=== PATIENT | male | born 1960 | race Caucasian/White ===

== ENCOUNTER 2016-09-05 12:28 | Emergency (ER) | payer MEDICAID ==
[2016-09-05] MEDS ORDERED: DEXAMETHASONE 10 MG/ML VIAL PO STA (14:56)
[2016-09-05] MEDS ORDERED: CHERRY SYRUP 10 ML UDC PO ONE (14:58)
[2016-09-05] MEDS ORDERED: DEXAMETHASONE 10 MG/ML VIAL ONE (14:58)
== END 2016-09-05 15:13 | disposition home or self-care (01) ==
DX: J02.8 Acute pharyngitis due to other specified organisms (principal); B97.89 Other viral agents as the cause of diseases classified elsewhere; I10 Essential (primary) hypertension; E11.9 Type 2 diabetes mellitus without complications; Z79.82 Long term (current) use of aspirin; Z79.84 Long term (current) use of oral hypoglycemic drugs; Z87.891 Personal history of nicotine dependence
CPT/HCPCS: 87070; 87430; 99283; A9270

== ENCOUNTER 2016-11-02 14:37 | Emergency (ER) | payer MEDICAID ==
[2016-11-02] MEDS ORDERED: CLINDAMYCIN 150 MG CAPSULE PO STA (14:48)
[2016-11-02] MEDS ORDERED: CLINDAMYCIN 150 MG CAPSULE PO ONE (14:55)
== END 2016-11-02 14:59 | disposition home or self-care (01) ==
DX: L03.312 Cellulitis of back [any part except buttock and flank] (principal); I10 Essential (primary) hypertension; E11.9 Type 2 diabetes mellitus without complications; Z79.84 Long term (current) use of oral hypoglycemic drugs; E78.00 Pure hypercholesterolemia, unspecified; Z86.73 Personal history of transient ischemic attack (TIA), and cerebral infarction without residual deficits; K21.9 Gastro-esophageal reflux disease without esophagitis; M19.90 Unspecified osteoarthritis, unspecified site; M10.9 Gout, unspecified; Z79.82 Long term (current) use of aspirin; Z87.891 Personal history of nicotine dependence
CPT/HCPCS: 99283; A9270

== ENCOUNTER 2016-11-09 13:53 | Emergency (ER) | payer MEDICAID | END 2016-11-09 16:02 | disposition home or self-care (01) | DX: S83.91XA Sprain of unspecified site of right knee, initial encounter (principal); X50.1XXA Overexertion from prolonged static or awkward postures, initial encounter; Y92.009 Unspecified place in unspecified non-institutional (private) residence as the place of occurrence of the external cause; M25.461 Effusion, right knee; M17.11 Unilateral primary osteoarthritis, right knee; I10 Essential (primary) hypertension; E11.9 Type 2 diabetes mellitus without complications; Z79.4 Long term (current) use of insulin; K21.9 Gastro-esophageal reflux disease without esophagitis; Z79.82 Long term (current) use of aspirin; Z87.891 Personal history of nicotine dependence ==

== ENCOUNTER 2018-04-23 19:20 | Emergency (ER) | payer MEDICAID ==
[2018-04-23 19:29] VITALS: BP 131/87
[2018-04-23] MEDS ORDERED: AMOX/CLAV 875 MG/125 MG TABLET PO STA (19:41)
--- NOTE | 2018-04-23 19:45 | ED Physician Documentation ---
PD HPI HEENT - Stated complaint Stated Complaint: SWELLING IN JAW/FACE/COUGH - Chief complaint Chief Complaint: Heent - History obtained from History obtained from: Patient - History of Present Illness Timing - onset: Other (57-year-old gentleman with uncontrolled diabetes and multiple other comorbidities has had cough and cold and runny nose for several days but since last night has had severe right-sided facial pain radiating into the teeth and ear. It is worse if he leans forward or chews. 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 HEENT: Tonsil/Adenoidectomy - Present Medications Home Medications: Ambulatory Orders Medication Instructions Recorded Confirmed Allopurinol [Zyloprim] 100 mg DAILY 09/01/13 09/01/13 Aspirin [Aspir 81] 81 mg DAILY 09/01/13 09/01/13 Cyclobenzaprine [Flexeril] 10 mg TID 09/01/13 09/01/13 Furosemide 80 mg DAILY 09/01/13 09/01/13 Gabapentin [Neurontin] 600 mg PO TID 09/01/13 09/01/13 Glimepiride 4 mg PO DAILY 09/01/13 09/01/13 Hydrocodone/Acetaminophen [Vicodin 1 - 2 tab Q4HR 09/01/13 09/01/13 Hp 10-300 mg Tablet] LORazepam [Ativan] 1 mg PO ONCE PRN 09/01/13 09/01/13 Metformin HCl [Metformin HCl ER] 2,000 mg PO DAILY 09/01/13 09/01/13 Multivitamin [Multi-Vitamin Daily] 1 tab DAILY 09/01/13 09/01/13 Omeprazole [PriLOSEC] 40 mg DAILY 09/01/13 09/01/13 Ondansetron Odt [Zofran] 4 mg TL Q6H PRN #10 tablet 09/01/13 Potassium Chloride [K-Dur] 1 tab DAILY 09/01/13 09/01/13 Propranolol [Inderal] 60 mg DAILY 09/01/13 09/01/13 traMADol [Ultram] 1 - 2 tab TID 09/01/13 09/01/13 Atorvastatin Calcium 40 mg PO DAILY 12/21/15 12/21/15 Clobetasol Propionate/Emoll 12/21/15 [Clobetasol Emollient 0.05% Crm] Fluticasone Propionate, Micro 12/21/15 [Fluticasone Propionate Micro] Losartan Potassium 100 mg PO DAILY 12/21/15 12/21/15 Pioglitazone HCl [Actos] 30 mg PO DAILY 12/21/15 12/21/15 SITagliptin [Januvia] 100 mg PO DAILY 12/21/15 12/21/15 Sucralfate 1 gm PO QID 12/21/15 12/21/15 metOLazone [Metolazone] 12/21/15 Clindamycin HCl [Clindamycin 300MG 300 mg PO Q6H 7 Days capsule 11/02/16 CAP] Exenatide [Byetta] 5 mcg SQ 11/09/16 Insulin Glargine,Hum.rec.anlog 35 unit SQ 11/09/16 [Lantus Solostar] Amox/Clav 875/125 [Augmentin 1 tab PO BID 10 Days #20 tablet 04/23/18 875/125] Meloxicam [Mobic] 7.5 mg PO BID PRN #20 tablet 04/23/18 - Allergies Allergies/Adverse Reactions: Allergies Allergy/AdvReac Type Severity Reaction Status Date / Time acetaminophen [From Percocet] Allergy Respiratory Verified 04/23/18 19:29 oxycodone HCl * Allergy Respiratory Verified 04/23/18 19:29 [From Percocet] - Social History Does the pt smoke?: No Smoking Status: Former smoker Does the pt drink ETOH?: No Does the pt have substance abuse?: No - Immunizations Immunizations are current?: Yes - POLST Patient has POLST: No PD ED PE NORMAL - Vitals Vital signs reviewed: Yes - General General: Alert and oriented X 3, No acute distress - HEENT HEENT: Other (TMs are normal. He is edentulous with dentures in place, no trismus and the oropharynx is normal. He has significant tenderness over the right maxillary sinus and very swollen nasal mucosa on the right.) - Neck Neck: Supple, no meningeal sign, No bony TTP - Cardiac Cardiac: RRR, No murmur - Respiratory Respiratory: No respiratory distress, Clear bilaterally - Neuro Neuro: Alert and oriented X 3, Normal speech Results - Vitals Vitals: Vital Signs - 24 hr 04/23/18 19:23 Temperature 37.4 C Heart Rate 122 H Respiratory 24 Rate Blood Pressure 131/87 H O2 Saturation 96 Oxygen O2 Source Room air PD MEDICAL DECISION MAKING - ED course ED course: This is a 57-year-old gentleman with uncontrolled diabetes presents with signs and symptoms of right maxillary sinusitis he does fit IDSA criteria for antibiotic treatment. - Sepsis Event Vital Signs: Vital Signs - 24 hr 04/23/18 19:23 Temperature 37.4 C Heart Rate 122 H Respiratory 24 Rate Blood Pressure 131/87 H O2 Saturation 96 Oxygen O2 Source Room air Departure - Departure Disposition: Home, Self Care Clinical Impression: Sinusitis Qualifiers: Sinusitis location: maxillary Chronicity: acute Recurrence: non-recurrent Qualified Code(s): J01.00 - Acute maxillary sinusitis, unspecified Condition: Good Record reviewed to determine appropriate education?: Yes Instructions: ED Sinusitis Abx Tx Prescriptions: Amox/Clav 875/125 [Augmentin 875/125] 1 tab PO BID 10 Days #20 tablet Meloxicam [Mobic] 7.5 mg PO BID PRN #20 tablet PRN Reason: Pain Comments: Your blood pressure was elevated today on check into the emergency department. This does not mean that you have hypertension, it is a common phenomenon to come to the emergency department and have elevated blood pressure. I recommend that you see your primary care physician within the week to have it rechecked when you are feeling better.
[2018-04-23] MEDS ORDERED: MELOXICAM 7.5 MG TABLET PO STA (19:52)
[2018-04-24] MEDS ORDERED: MELOXICAM 7.5 MG TABLET PO SCH (09:00)
== END 2018-04-23 20:03 | disposition home or self-care (01) ==
LOC: ED 19:20
DX: J01.00 Acute maxillary sinusitis, unspecified (principal); Z87.891 Personal history of nicotine dependence; I10 Essential (primary) hypertension; E11.9 Type 2 diabetes mellitus without complications; Z79.4 Long term (current) use of insulin; Z79.82 Long term (current) use of aspirin
CPT/HCPCS: 99283; A9270

== ENCOUNTER 2019-04-29 10:21 | Outpatient (CLI) | payer MEDICARE, MEDICAID ==
[2019-04-29 11:46] VITALS: BP 130/80
--- NOTE | 2019-04-29 11:46 | SLEEP CARE CONSULTATION ---
Information from patient questionnaire entered by Khadijah Boo. I have reviewed and concur with the information entered by Khadijah Boo. This document represents the service I personally performed and the decisions made by me, Nadine Duff, RN, MSN, SYSTEM DEVELOPMENT MANAGER. History of Present Illness Reason for Visit: Previously diagnosed sleep apnea (obstructive sleep apnea with 23.9 AHI), sleep apnea on CPAP therapy, Re-establish care (his insurance was no longer accepted here and had to seek care at [facility]. He has been seen annually since. ) Chief Complaint: reports: Other (ANNUAL CHECK UP) Duration of Symptoms: 8 years Usual bedtime: 1 am Time it takes to fall asleep: 10 mins Snores at night: No Observed to quit breathing while asleep: No (single sleeps alone ) Number of times waking at night: 3-4 Reasons for waking at night: reports: Pain Toss, Turn, or Twitch while sleeping: No Recalls having dreams: Yes Usually gets out of bed at: 8 am Feels refreshed in the morning: No Morning headache: No Sleepy or fatigued during the day: No Ever fallen asleep while driving: Yes (decades ago before PAP treatment) Takes day naps: Yes (2 hours a day in middle of day for pain relief rest- no change) Dreams during day naps: Yes Prior sleep studies: Yes Year and Where: here - Parasomnia Symptoms Ever been unable to move upon waking from sleep: No Walks in sleep: No Talks in sleep: No Ever acted out dreams in sleep: No Ever felt weak in the knees when startled or emotional: No Bothered by creepy, crawly, restless sensations in legs: No Problems with memory or concentration: Yes (since TIA history - years ) CPAP Compliance Data - Data Reviewed with Patient Average duration of nightly device use: 8.2 Compliance rate %: 86.7 (180 days) Current pressure setting (cmH2O): 10-18 Humidity settin Heated hose settin Average residual AHI: 0.5 Average large leak: 40 secs Subjective Missed days of use due to: reports: travel (forgot CPAP), other (insomnia) Patient concerns: reports: mask discomfort (from over tightening mask for leaks. Also irritation of skin below ears Uses Wisp nasal mask. ), air blowing in eyes (most days ), mask leak noise (most days), dry mouth, nose, throat (day and night but no worse at night. ). denies: aerophagia, condensation in mask/hose, nasal congestion, epistaxis Observed to snore while using device: No Current pressure setting perceived as: comfortable On therapy, patient: reports: sleeping better, being more awake and alert during the day, more rested overall. denies: drowsiness while driving Initial [place] Sleepiness Scale score: 13 (in 2013) Current [place] Sleepiness Scale score: 13 Past Medical History Past Medical History: reports: Hypertension, Diabetes, Arthritis, Gout, Fibromyalgia, GERD Social History The patient's occupation is Retired. Patient is / and lives in [place]. Have you smoked in the past 12 months: No Cigarettes per day (20/pack): 40 Years of smokin Quit date: 4 years ago Smoking Pack Years: 84.0 Alcohol use: No Caffeine use: Yes Caffeine amount and frequency: 2 cups a day Family History Family history of sleep disordered breathing: No Allergies and Home Medications Known drug allergies: Yes (Percocet) Home medication list reviewed: Yes (Changes is Victoza replaced by Ozempic weekly, and Humolog replaced by Dg) Review of Systems Review of systems same as previous: Yes Cardiovascular: reports: high blood pressure Gastrointestinal: reports: heartburn, difficulty swallowing Neurological: reports: headaches, head trauma, disorientation (intermittent feeling overwhelmed such as accounting etc. ), gait or balance problems (uses cane from past injuries ) Ear/Nose/Throat: reports: dry mouth/throat, tonsillectomy, wisdom teeth removed Musculoskeletal: reports: joint pain, neck pain, back pain, joint swelling, muscle pain or cramping (fibromyalgia ), mobility problems Physical Exam Blood Pressure: 130/80 Cuff size: long Heart Rate: 72 O2 Saturation: 96 Height: 5 ft 11.5 in (stated) Weight: 364 lb 9.6 oz Weight change since last visit: lost 6 pounds Body Mass Index: 50.1 BMI Classification: Obesity Class 3 Impression and Plan 1. Obstructive Sleep Apnea-Hypopnea Syndrome, moderate , with go0d treatment compliance and good apnea control. On CPAP therapy, the patient has better sleep quality and is more rested overall. For mask discomfort, one, I will update supplies. Two, a mask refitting will be completed. Current mask magnets get caught in his fan and unsnap. Also the headgear rubs below ears. Until then he can order mask cloth barriers from [employer] - pamphlet given with information. His oral dryness is 24/7 and his humdity is at maximum with heated hose to reduce condensation with cooler weather. The new CPAPs have a better humidity system and may assist him with oral dryness. His device is not due for replacement until August of 2019. But the device is very noisy and can interfere with disruption of sleep. Thus I will have it checked for repair / replacement. For his supply concerns, I will transfer him to another company. My religious education coordinator will inform him of his options. A DWO prescription will be made. He has started to lose weight with increase of activity in pool. Current BMI is 50, class 3 obesity, indicating morbid obesity. I discussed how his obesity and weight gain since first diagnosed has probably increased his apnea risk as well as other health risks. He is working with PCP and considering bariatric surgery. Since his autoCPAP pressure maximum use is [id number], I will change range to [id number] to accommodate for future weight loss. Symptoms to report discussed for further adjustment discussed. Patient's apnea severity and rationale for treatment to reduce apnea, improve sleep quality and reduce cardiovascular and cerebrovascular events was reviewed. I also reviewed the benefit of consistent device use of CPAP for hypertension, cerebrovascular disease, diabetes . * * Change CPAP pressure to 10-15 cmH2O * Repair or replace CPAP * Transfer to new DME * Update supplies * Mask refitting. * Notify me if snoring with mask or feeling that the pressure is too much or too little * Attempt to lose weight * Return for follow up in 1 year unless his CPAP is updated, or sooner if concerns arise I spent 100% of this 50 minute visit face to face with the patient with greater than 50% of this was spent time counseling the patient and coordination of care.
== END 2019-04-29 10:22 | disposition home or self-care (01) ==
LOC: SC 10:21
PROVIDERS: ATTEND Nurse Practitioner Family
DX: G47.33 Obstructive sleep apnea (adult) (pediatric) (principal); E66.01 Morbid (severe) obesity due to excess calories; Z68.43 Body mass index [BMI] 50.0-59.9, adult
CPT/HCPCS: 99204; G0463; 99212

== ENCOUNTER 2019-07-03 14:32 | Outpatient (CLI) | payer MEDICARE, MEDICAID | END 2019-07-03 14:33 | disposition critical access hospital (66) | LOC: EMS 14:32 | PROVIDERS: ATTEND Surgery | DX: R56.9 Unspecified convulsions (principal) | CPT/HCPCS: A0425; A0429 ==

== ENCOUNTER 2019-07-03 14:46 | Emergency (ER) | payer MEDICARE, MEDICAID ==
[2019-07-03] MEDS ORDERED: diphenhydrAMINE INJ 50 MG/ML VIAL IVP STA (14:52)
[2019-07-03] MEDS ORDERED: LORazepam 2 MG/ML VIAL IVP STA (14:52)
[2019-07-03] MEDS ORDERED: SODIUM CHLORIDE 0.9% 1,000 ML IV ONE ×2 (14:52→15:44)
--- NOTE | 2019-07-03 14:54 | ED Physician Documentation ---
PD HPI SEIZURE - Stated complaint Stated Complaint: SZ - History obtained from History obtained from: Patient, EMS - History of Present Illness Timing - onset: How many hours ago (1) Witnessed: Witnessed (he says he was standing doing light activity when started to feel generally weak then with muscle cramps/spasms initially in arms then whole body. he was alert and conversant. Feeling some anxious about symptoms. Denies rapid breathing.) Description of seizure activity: Other (he had spasms of hands and feet, with muscle spasms diffusely as well. Able to talk and interact.) Injury during seizure: None Associated symptoms: Dyspnea. No: Headache, Palpitations, Nausea / vomiting History of seizures: No: Known seizure disorder Contributing factors: No: Changed meds, Low blood sugar, Benzo withdrawal, Fever Similar symptoms before: No diagnosis (had similar couple of times that lasts just few minutes then improves. This has been over an hour.) Review of Systems Constitutional: reports: Myalgias. denies: Fever, Chills, Fatigue Nose: denies: Rhinorrhea / runny nose, Congestion Throat: denies: Sore throat Cardiac: denies: Chest pain / pressure, Palpitations Respiratory: denies: Cough Musculoskeletal: denies: Neck pain, Back pain Neurologic: reports: Generalized weakness. 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 HEENT: Tonsil/Adenoidectomy - Present Medications Home Medications: Ambulatory Orders Medication Instructions Recorded Confirmed Allopurinol [Zyloprim] 100 mg DAILY 09/01/13 09/01/13 Aspirin [Aspir 81] 81 mg DAILY 09/01/13 09/01/13 Cyclobenzaprine [Flexeril] 10 mg TID 09/01/13 09/01/13 Furosemide 80 mg DAILY 09/01/13 09/01/13 Gabapentin [Neurontin] 600 mg PO TID 09/01/13 09/01/13 Glimepiride 4 mg PO DAILY 09/01/13 09/01/13 Hydrocodone/Acetaminophen [Vicodin 1 - 2 tab Q4HR 09/01/13 09/01/13 Hp 10-300 mg Tablet] LORazepam [Ativan] 1 mg PO ONCE PRN 09/01/13 09/01/13 Metformin HCl [Metformin ER 2,000 mg PO DAILY 09/01/13 09/01/13 Osmotic] Multivitamin [Multi-Vitamin Daily] 1 tab DAILY 09/01/13 09/01/13 Omeprazole [PriLOSEC] 40 mg DAILY 09/01/13 09/01/13 Ondansetron Odt [Zofran] 4 mg TL Q6H PRN #10 tablet 09/01/13 Potassium Chloride [K-Dur] 1 tab DAILY 09/01/13 09/01/13 Propranolol [Inderal] 60 mg DAILY 09/01/13 09/01/13 traMADol [Ultram] 1 - 2 tab TID 09/01/13 09/01/13 Atorvastatin Calcium 40 mg PO DAILY 12/21/15 12/21/15 Clobetasol Propionate/Emoll 12/21/15 [Clobetasol Emollient 0.05% Crm] Fluticasone Propionate, Micro 12/21/15 [Fluticasone Propionate Micro] Losartan Potassium 100 mg PO DAILY 12/21/15 12/21/15 Pioglitazone HCl [Actos] 30 mg PO DAILY 12/21/15 12/21/15 SITagliptin [Januvia] 100 mg PO DAILY 12/21/15 12/21/15 Sucralfate 1 gm PO QID 12/21/15 12/21/15 metOLazone [Metolazone] 12/21/15 Clindamycin HCl [Clindamycin 300MG 300 mg PO Q6H 7 Days capsule 11/02/16 CAP] Exenatide [Byetta] 5 mcg SQ 11/09/16 Insulin Glargine,Hum.rec.anlog 35 unit SQ 11/09/16 [Lantus Solostar] Amox/Clav 875/125 [Augmentin 1 tab PO BID 10 Days #20 tablet 04/23/18 875/125] Meloxicam [Mobic] 7.5 mg PO BID PRN #20 tablet 04/23/18 - Allergies Allergies/Adverse Reactions: Allergies Allergy/AdvReac Type Severity Reaction Status Date / Time acetaminophen [From Percocet] Allergy Respiratory Verified 07/03/19 14:58 oxycodone HCl * Allergy Respiratory Verified 07/03/19 14:58 [From Percocet] - Social History Does the pt smoke?: No Smoking Status: Former smoker Does the pt drink ETOH?: No Does the pt have substance abuse?: No - Immunizations Immunizations are current?: Yes - POLST Patient has POLST: No PD ED PE NORMAL - Vitals Vital signs reviewed: Yes - General General: Alert and oriented X 3, Well developed/nourished, Other (arrives via EMS with being conversant. Mild tachypnea. Having spasms in arms and legs. He will push feet out against foot of gurney. Arms and hands are spasmed, with fingertips spasmed together. He is able to lift arms and legs on command, but still with some stiffness of movement. ) - HEENT HEENT: Moist mucous membranes, Pharynx benign - Neck Neck: Supple, no meningeal sign, No adenopathy - Cardiac Cardiac: RRR, No murmur - Respiratory Respiratory: No respiratory distress, Clear bilaterally - Abdomen Abdomen: Soft, Non tender - Back Back: No spinal TTP - Derm Derm: Normal color, Warm and dry - Extremities Extremities: No edema, No calf tenderness / cord, Other (arms and legs bilaterally spasming. ) Results - Vitals Vitals: Vital Signs - 24 hr 07/03/19 07/03/19 07/03/19 14:45 14:58 15:28 Temperature 36.9 C Heart Rate 94 87 84 Respiratory 24 20 22 Rate Blood Pressure 135/115 H 137/98 H 137/98 H O2 Saturation 96 98 98 07/03/19 07/03/19 07/03/19 15:30 17:30 18:28 Temperature 37.0 C Heart Rate 85 83 82 Respiratory 19 21 16 Rate Blood Pressure 130/76 127/101 H 146/79 H O2 Saturation 98 98 98 Oxygen O2 Source Room air - Labs Labs: Laboratory Tests 07/03/19 07/03/19 07/03/19 15:04 15:04 15:04 WBC 10.5 RBC 5.39 Hgb 16.0 Hct 49.7 MCV 92.2 MCH 29.7 MCHC 32.2 RDW 13.0 Plt Count 312 MPV 9.1 Neut # (Auto) 4.4 Lymph # (Auto) 4.9 H Fisher # (Auto) 0.9 Eos # (Auto) 0.2 Baso # (Auto) 0.1 Absolute Nucleated RBC 0.00 Nucleated RBC % 0.0 VBG pH 7.227 L VBG pCO2 61.3 H VBG pO2 25.1 VBG HCO3 24.9 VBG Total CO2 26.8 VBG O2 Saturation 41.2 L VBG Base Excess -4.1 L Sodium 143 Potassium 4.8 Chloride 103 Carbon Dioxide 27 Anion Gap 13.0 BUN 19 Creatinine 1.3 H Estimated GFR (MDRD) 57 L Glucose 148 H Lactic Acid Calcium 9.5 Magnesium 1.9 Total Bilirubin 0.6 AST 63 H ALT 46 Alkaline Phosphatase 86 Total Creatine Kinase 119 Total Protein 7.7 Albumin 4.0 Globulin 3.7 Albumin/Globulin Ratio 1.1 Lipase 41 Serum Ketones 07/03/19 07/03/19 07/03/19 15:04 15:04 16:58 WBC RBC Hgb Hct MCV MCH MCHC RDW Plt Count MPV Neut # (Auto) Lymph # (Auto) Fisher # (Auto) Eos # (Auto) Baso # (Auto) Absolute Nucleated RBC Nucleated RBC % VBG pH VBG pCO2 VBG pO2 VBG HCO3 VBG Total CO2 VBG O2 Saturation VBG Base Excess Sodium Potassium Chloride Carbon Dioxide Anion Gap BUN Creatinine Estimated GFR (MDRD) Glucose Lactic Acid 3.2 H* 1.1 Calcium Magnesium Total Bilirubin AST ALT Alkaline Phosphatase Total Creatine Kinase Total Protein Albumin Globulin Albumin/Globulin Ratio Lipase Serum Ketones NEGATIVE 07/03/19 16:58 WBC RBC Hgb Hct MCV MCH MCHC RDW Plt Count MPV Neut # (Auto) Lymph # (Auto) Fisher # (Auto) Eos # (Auto) Baso # (Auto) Absolute Nucleated RBC Nucleated RBC % VBG pH 7.323 VBG pCO2 49.0 VBG pO2 39.4 VBG HCO3 24.9 VBG Total CO2 26.4 VBG O2 Saturation 75.2 VBG Base Excess -1.8 Sodium Potassium Chloride Carbon Dioxide Anion Gap BUN Creatinine Estimated GFR (MDRD) Glucose Lactic Acid Calcium Magnesium Total Bilirubin AST ALT Alkaline Phosphatase Total Creatine Kinase Total Protein Albumin Globulin Albumin/Globulin Ratio Lipase Serum Ketones PD MEDICAL DECISION MAKING - ED course Complexity details: reviewed results (lactic acidosis with resp component. He is feeling improved with fludis and meds. Repeat lactate and VBG showing considerable improvement. ), considered differential (not really sure the sequence of it. He has onset of leg and body cramps and weakness, and brought to ER. Having diffuse body cramps on arrival. Labs found elevated lactate and also respiratory acidosis. Consider lactic acidosis due to Metformin. He says he is not on Byetta anymore and he has negative ketones, so not appearing to be euglycemic DKA. The muscle spasms was not seizure. could be hyperventilatory carpopedal spasms.), d/w patient Departure - Departure Disposition: 01 Home, Self Care Clinical Impression: Muscle spasm, Lactic acidosis Condition: Stable Record reviewed to determine appropriate education?: Yes Instructions: ED Spasm Muscle Follow-Up: Jeremiah Leal MD [Primary Care Provider] - Comments: Stay well-hydrated. Hold your metformin for 3 days and then resume if you are feeling well. Continue your other usual medications. Follow-up with your primary care if not improved over the next few days. I do know exactly the initial triggering for it but you did have a buildup of lactic acid and subsequently the muscle spasms. You look well now and your blood test actually improved with just the hydration and stopping the spasms. I would not expect recurrent episodes. Discharge Date/Time: 07/03/19 18:28
[2019-07-03 15:09] LABS: BASOPHILS # (AUTO) 0.1 10^3/uL (0.0-0.1); BASOPHILS % (AUTO) 0.9 %; EOSINOPHILS # (AUTO) 0.2 10^3/uL (0.0-0.7); EOSINOPHILS % (AUTO) 1.9 %; LYMPHOCYTES # (AUTO) 4.9 10^3/uL (1.5-3.5); LYMPHOCYTES % (AUTO) 46.3 %; MEAN CORPUSCULAR HEMOGLOBIN 29.7 pg (27.0-31.0); MEAN CORPUSCULAR HGB CONC 32.2 g/dL (32.0-36.0); MEAN CORPUSCULAR VOLUME 92.2 fL (80.0-94.0); MEAN PLATELET VOLUME 9.1 fL (7.4-11.4); MONOCYTES # (AUTO) 0.9 10^3/uL (0.0-1.0); MONOCYTES % (AUTO) 8.3 %; NEUTROPHILS # (AUTO) 4.4 10^3/uL (1.5-6.6); NEUTROPHILS % (AUTO) 42.2 %; PLT - PLATELET COUNT 312 10^3/uL (130-450); RED BLOOD COUNT 5.39 10^6/uL (4.70-6.10); WHITE BLOOD COUNT 10.5 x10^3/uL (4.8-10.8)
[2019-07-03 15:20] LABS: VBG BASE EXCESS -4.1 mmol/L (-2 - +2); VBG PCO2 61.3 mmHg (41-51); VBG PH 7.227 (7.31-7.41); VBG PO2 25.1 mmHg (25-47); VBG TOTAL CO2 26.8 mmol/L (24-29)
[2019-07-03 15:23] LABS: ALBUMIN/GLOBULIN RATIO 1.1 (1.0-2.2); BILIRUBIN,TOTAL 0.6 mg/dL (0.2-1.0); CALCIUM 9.5 mg/dL (8.5-10.3); CREATININE 1.3 mg/dL (0.6-1.2); MAGNESIUM 1.9 mg/dL (1.7-2.8); TOTAL PROTEIN 7.7 g/dL (6.7-8.2)
[2019-07-03 17:12] LABS: VBG PH 7.323 (7.31-7.41); VBG PO2 39.4 mmHg (25-47)
[2019-07-03 17:13] LABS: VBG BASE EXCESS -1.8 mmol/L (-2 - +2); VBG TOTAL CO2 26.4 mmol/L (24-29)
[2019-07-03 18:30] VITALS: BP 146/79
== END 2019-07-03 18:28 | disposition home or self-care (01) ==
LOC: ED 14:46
DX: M62.838 Other muscle spasm (principal); E87.2 Acidosis; I10 Essential (primary) hypertension; E11.9 Type 2 diabetes mellitus without complications; Z79.4 Long term (current) use of insulin; Z79.82 Long term (current) use of aspirin; Z87.891 Personal history of nicotine dependence
CPT/HCPCS: 36415; 80053; 82009; 82550; 82803; 83605; 83690; 83735; 85025; 96361; 96374; 99283; 99284; J1200; J2060

== ENCOUNTER 2019-07-16 13:51 | Emergency (ER) | payer MEDICARE, MEDICAID ==
[2019-07-16 14:07] VITALS: BP 123/81
--- NOTE | 2019-07-16 14:47 | ED Physician Documentation ---
PD DAVIDSON HEENT - Stated complaint Stated Complaint: RT EAR PX - Chief complaint Chief Complaint: Heent - History obtained from History obtained from: Patient - History of Present Illness Timing - onset: Other (2 to 3 days of mild right ear pain that is more severe today. No respiratory symptoms or fevers. 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 ablation HEENT: Tonsil/Adenoidectomy - Present Medications Home Medications: Ambulatory Orders Medication Instructions Recorded Confirmed Aspirin [Aspir 81] 81 mg DAILY 09/01/13 09/01/13 Cyclobenzaprine [Flexeril] 10 mg TID 09/01/13 09/01/13 Furosemide 80 mg DAILY 09/01/13 09/01/13 Gabapentin [Neurontin] 600 mg PO TID 09/01/13 09/01/13 Glimepiride 4 mg PO DAILY 09/01/13 09/01/13 Hydrocodone/Acetaminophen [Vicodin 1 - 2 tab Q4HR 09/01/13 09/01/13 Hp 10-300 mg Tablet] LORazepam [Ativan] 1 mg PO ONCE PRN 09/01/13 09/01/13 Metformin HCl [Metformin ER 2,000 mg PO DAILY 09/01/13 09/01/13 Osmotic] Multivitamin [Multi-Vitamin Daily] 1 tab DAILY 09/01/13 09/01/13 Omeprazole [PriLOSEC] 40 mg DAILY 09/01/13 09/01/13 Ondansetron Odt [Zofran] 4 mg TL Q6H PRN #10 tablet 09/01/13 Potassium Chloride [K-Dur] 1 tab DAILY 09/01/13 09/01/13 Propranolol [Inderal] 60 mg DAILY 09/01/13 09/01/13 allopurinoL [Zyloprim] 100 mg DAILY 09/01/13 09/01/13 traMADol [Ultram] 1 - 2 tab TID 09/01/13 09/01/13 Atorvastatin Calcium 40 mg PO DAILY 12/21/15 12/21/15 Clobetasol Propionate/Emoll 12/21/15 [Clobetasol Emollient 0.05% Crm] Fluticasone Propionate, Micro 12/21/15 [Fluticasone Propionate Micro] Losartan Potassium 100 mg PO DAILY 12/21/15 12/21/15 Pioglitazone HCl [Actos] 30 mg PO DAILY 12/21/15 12/21/15 SITagliptin [Januvia] 100 mg PO DAILY 12/21/15 12/21/15 Sucralfate 1 gm PO QID 12/21/15 12/21/15 metOLazone [Metolazone] 12/21/15 Clindamycin HCl [Clindamycin 300MG 300 mg PO Q6H 7 Days capsule 11/02/16 CAP] Exenatide [Byetta] 5 mcg SQ 11/09/16 Insulin Glargine,Hum.rec.anlog 35 unit SQ 11/09/16 [Lantus Solostar] Amox/Clav 875/125 [Augmentin 1 tab PO BID 10 Days #20 tablet 04/23/18 875/125] Meloxicam [Mobic] 7.5 mg PO BID PRN #20 tablet 04/23/18 Ciprofloxacin HCl [Cipro] 500 mg PO BID #20 tablet 07/16/19 Hydrocodone/Acetaminophen 1 - 2 each PO Q6H PRN #10 tablet 07/16/19 [Hydrocodon-Acetaminophen 5-325] Neomycin/Polymyx/Hc Otic Drops 4 drops OT TID #1 bottle 07/16/19 [Cortisporin Ear Susp] - Allergies Allergies/Adverse Reactions: Allergies Allergy/AdvReac Type Severity Reaction Status Date / Time acetaminophen [From Percocet] Allergy Respiratory Verified 07/16/19 14:04 oxycodone HCl * Allergy Respiratory Verified 07/16/19 14:04 [From Percocet] - Social History Does the pt smoke?: No Smoking Status: Former smoker Does the pt drink ETOH?: No Does the pt have substance abuse?: No - Immunizations Immunizations are current?: Yes - POLST Patient has POLST: No PD ED PE NORMAL - Vitals Vital signs reviewed: Yes - General General: Alert and oriented X 3, No acute distress - HEENT HEENT: Other (He has a case of otitis externa on the right which is not occlusive. The TM is normal.) - Neck Neck: Supple, no meningeal sign, No bony TTP - Neuro Neuro: Alert and oriented X 3, Normal speech Results - Vitals Vitals: Vital Signs - 24 hr 07/16/19 14:04 Temperature 37 C Heart Rate 100 Respiratory 17 Rate Blood Pressure 123/81 H O2 Saturation 94 Oxygen O2 Source Room air PD MEDICAL DECISION MAKING - ED course ED course: Given underlying diabetes he does fit criteria for antibiotic treatment orally and topically for otitis externa Departure - Departure Disposition: Home, Self Care Clinical Impression: Otitis externa Qualifiers: Otitis externa type: diffuse Chronicity: acute Laterality: right Qualified Code(s): H60.311 - Diffuse otitis externa, right ear Condition: Good Record reviewed to determine appropriate education?: Yes Instructions: ED Otitis Externa Prescriptions: Ciprofloxacin HCl [Cipro] 500 mg PO BID #20 tablet Hydrocodone/Acetaminophen [Hydrocodon-Acetaminophen 5-325] 1 - 2 each PO Q6H PRN #10 tablet PRN Reason: pain Neomycin/Polymyx/Hc Otic Drops [Cortisporin Ear Susp] 4 drops OT TID #1 bottle Comments: Recheck with your doctor in 1 week, return for new or worsening symptoms.
== END 2019-07-16 15:06 | disposition home or self-care (01) ==
LOC: ED 13:51
DX: H60.311 Diffuse otitis externa, right ear (principal); I10 Essential (primary) hypertension; E11.9 Type 2 diabetes mellitus without complications; Z79.4 Long term (current) use of insulin; Z79.82 Long term (current) use of aspirin; Z87.891 Personal history of nicotine dependence
CPT/HCPCS: 99283

== ENCOUNTER 2019-12-04 11:50 | Outpatient (CLI) | payer MEDICARE, MEDICAID ==
--- NOTE | 2019-12-05 00:25 | CT Report ---
Reason: TREMORS OF NERVOUS SYSTEM Procedure Date: 12/04/2019 Accession Number: [id number] / [id number] Procedure: CT - HEAD WO CPT Code: Final Report FULL RESULT: EXAM: CT HEAD EXAM DATE: 12/04/2019 12:08 PM. CLINICAL HISTORY: TREMORS OF NERVOUS SYSTEM. COMPARISON: None. TECHNIQUE: Multiaxial CT images were obtained from the foramen magnum to the vertex. Reformats: Sagittal and coronal. IV contrast: None. In accordance with CT protocol optimization, one or more of the following dose reduction techniques were utilized for this exam: automated exposure control, adjustment of mA and/or KV based on patient size, or use of iterative reconstructive technique. FINDINGS: Parenchyma: No intraparenchymal hemorrhage. No evidence of mass, midline shift, or CT findings of acute infarction. Cerda-white differentiation is distinct. Diffuse chronic microangiopathic white matter changes are evident. Extraaxial Spaces: Normal for age. No subdural or epidural collections identified. Ventricles: The ventricles and cortical sulci are enlarged, consistent with age-related tissue loss. Sinuses and orbits: Mucous retention cyst or polyp in the left maxillary sinus. The visualized orbital contents are unremarkable. Bones: No evidence of fracture or calvarial defect. Other: None. IMPRESSION: Generalized age-related cortical atrophic changes without evidence of acute intracranial abnormality. Chronic sinus disease. RADIA
== END 2019-12-04 11:51 | disposition home or self-care (01) ==
LOC: DI 11:50
PROVIDERS: ATTEND Psychiatry & Neurology Neurology
DX: R25.1 Tremor, unspecified (principal); R51 Headache; Z91.81 History of falling; J32.9 Chronic sinusitis, unspecified
CPT/HCPCS: 70450

== ENCOUNTER 2020-02-03 08:47 | Outpatient (CLI) | payer MEDICARE, MEDICAID ==
[2020-02-03 09:24] LABS: BUN - BLOOD UREA NITROGEN 23 mg/dL (6-20); CALCIUM 9.3 mg/dL (8.5-10.3); CARBON DIOXIDE - CO2 28 mmol/L (21-32); CHLORIDE 99 mmol/L (101-111); CHOL/HDL RATIO 5.5 (<5.0); CHOLESTEROL 187 mg/dL; CREATININE 1.4 mg/dL (0.6-1.2); GLUCOSE 415 mg/dL (70-100); HDL CHOLESTEROL 34 mg/dL; LDL CHOLESTEROL,CALCULATED 105 mg/dL; LDL/HDL RATIO 3.1 (<3.6); SODIUM 136 mmol/L (135-145); VLDL CHOLESTEROL 48 mg/dL
[2020-02-03 09:51] LABS: CREATININE,URINE 114.4 mg/dL; MICROALBUM/CREATININE RATIO,UR 638.1 ug/mg (<30.0)
== END 2020-02-03 08:48 | disposition home or self-care (01) ==
LOC: LAB 08:47
PROVIDERS: ATTEND Nurse Practitioner Family
DX: E11.65 Type 2 diabetes mellitus with hyperglycemia (principal); Z79.4 Long term (current) use of insulin
CPT/HCPCS: 36415; 80048; 80061; 81599; 82043; 82570; 83036; 83721; 84443

== ENCOUNTER 2020-03-02 09:57 | Outpatient (CLI) | payer MEDICARE, MEDICAID ==
[2020-03-02 10:37] LABS: BUN - BLOOD UREA NITROGEN 20 mg/dL (6-20); CALCIUM 9.2 mg/dL (8.5-10.3); CARBON DIOXIDE - CO2 23 mmol/L (21-32); CHLORIDE 98 mmol/L (101-111); CHOL/HDL RATIO 6.1 (<5.0); CHOLESTEROL 183 mg/dL; CREATININE 1.2 mg/dL (0.6-1.2); GLUCOSE 495 mg/dL (70-100); HDL CHOLESTEROL 30 mg/dL; LDL CHOLESTEROL,CALCULATED 95 mg/dL; LDL/HDL RATIO 3.2 (<3.6); SODIUM 134 mmol/L (135-145); VLDL CHOLESTEROL 58 mg/dL
[2020-03-02 10:43] LABS: HB2 TOTAL 15.8 g/dL; HEMOGLOBIN A1C 1.6 g/dL; HEMOGLOBIN A1C % 11.4 % (4.6-6.2)
[2020-03-02 11:41] LABS: CREATININE,URINE 104.1 mg/dL; MICROALBUM/CREATININE RATIO,UR 740.6 ug/mg (<30.0); MICROALBUMIN,URINE 77.1 mg/dL (0-300.0)
== END 2020-03-02 09:58 | disposition home or self-care (01) ==
LOC: LAB 09:57
PROVIDERS: ATTEND Nurse Practitioner Family
DX: R79.89 Other specified abnormal findings of blood chemistry (principal); E11.65 Type 2 diabetes mellitus with hyperglycemia; Z79.4 Long term (current) use of insulin
CPT/HCPCS: 36415; 80048; 80061; 82043; 82570; 83036; 83721; 84443

== ENCOUNTER 2020-05-12 14:20 | Outpatient (CLI) | payer MEDICARE, MEDICAID ==
[2020-05-12 14:33] LABS: BILIRUBIN,URINE NEGATIVE (NEGATIVE); GLUCOSE, URINE (UA) 250 mg/dL (NEGATIVE); KETONES,URINE (UA) NEGATIVE (NEGATIVE); LEUKOCYTE ESTERASE, URINE NEGATIVE (NEGATIVE); NITRITE,URINE NEGATIVE (NEGATIVE); OCCULT BLOOD,URINE NEGATIVE (NEGATIVE); PROTEIN,URINE 100 mg/dL (NEGATIVE); UROBILINOGEN,URINE 0.2 (NORMAL) E.U./dL (NORMAL)
[2020-05-12 14:44] LABS: CLARITY,URINE CLEAR (CLEAR); RBC,URINE None Seen /HPF (0-5); SQUAMOUS EPITHELIAL CELL,UR NONE SEEN (<= Few)
[2020-05-12 14:45] LABS: BACTERIA,URINE None Seen /HPF (None Seen)
== END 2020-05-12 14:21 | disposition home or self-care (01) ==
LOC: LAB 14:20
PROVIDERS: ATTEND Specialist
DX: N39.0 Urinary tract infection, site not specified (principal)
CPT/HCPCS: 81001; 87086

== ENCOUNTER 2020-06-02 12:54 | Outpatient (CLI) | payer MEDICARE, MEDICAID ==
[2020-06-02 21:50] LABS: HEMOGLOBIN A1c% 10.9 % (4.27-6.07)
== END 2020-06-02 12:55 | disposition home or self-care (01) ==
LOC: LAB 12:54
PROVIDERS: ATTEND Nurse Practitioner Family
DX: E11.65 Type 2 diabetes mellitus with hyperglycemia (principal); Z79.4 Long term (current) use of insulin
CPT/HCPCS: 36415; 83036

== ENCOUNTER 2020-07-13 13:58 | Outpatient (CLI) | payer MEDICARE, MEDICAID ==
--- NOTE | 2020-07-13 14:32 | SLEEP CARE CONSULTATION ---
Information from patient questionnaire entered by Brett Rivas. I have reviewed and concur with the information entered by Brett Rivas. This document represents the service I personally performed and the decisions made by , Monique Hughes ARNP. History of Present Illness Service Date and Time: 07/13/2020 1358 Previous diagnosis: Moderate, Obstructive Sleep Apnea-Hypopnea Syndrome AHI: 23.8 (in 2007) Reason for follow up: first compliance (06/03), first compliance after device update Equipment type: CPAP Equipment obtained from: [employer] (getting supplies as needed) Mask style: Nasal pillows (getting some soreness and pulls out of nose; wants to change to nasal cushion) Backup mask available: Yes (old mask) Last cushion change: 2 weeks ago Prior sleep studies: Yes Year and Where: 2007 [facility] additional information: SHINE THOMAS was diagnosed to have moderate, AHI 23.8, obstructive sleep apnea-hypopnea syndrome and returned today for CPAP therapy first compliance after device update follow-up. Sleep Study - Results Prior sleep studies: Yes Year and Where: here CPAP Compliance Data - Data Reviewed with Patient Average duration of nightly device use: 8 h 25 min Compliance rate %: 97 Current pressure setting (cmH2O): 9-14 Average residual AHI: 1.1 Central apnea: 0.0 Obstructive apnea: 0.9 Subjective Patient concerns: reports: dry mouth, nose, throat. denies: aerophagia, mask discomfort, air blowing in eyes, mask leak noise, condensation in mask/hose, nasal congestion, epistaxis, other Observed to snore while using device: No Current pressure setting perceived as: too high On therapy, patient: reports: sleeping better, awakening more refreshed, being more awake and alert during the day, more rested overall, other (still suffers with a lot of pain that wakes him up at night). denies: drowsiness while driving Initial [place] Sleepiness Scale score: 8 (in 2007) Current [place] Sleepiness Scale score: 15 Allergies and Home Medications Drug allergies reviewed: Yes (percocet) Home medication list reviewed: Yes (no changes) Review of Systems Review of systems same as previous: No (prostate growth, biopsy result pending) Physical Exam Heart Rate: 108 O2 Saturation: 98 Height: 6 ft Weight: 377 lb Body Mass Index: 51.1 BMI Classification: Morbidly Obese Impression and Plan 1. Obstructive Sleep Apnea-Hypopnea Syndrome, moderate, with good treatment compliance and good apnea control. On CPAP therapy, the patient has better sleep quality and is more rested overall. Patient feels like the pressure is too much when he first puts it on. He would like to reduce the pressure. I will adjust his pressure range to 9-12 cmH2O and have him follow up in 1-2 months. He states he always has mouth dryness in the mornings. I reviewed with patient that oral dryness can be reduced by adjusting humidity setting higher or heated hose lower or by adjusting both settings. Patient advised that chronic oral dryness can affect dental health and advised to follow up with dentist. In addition, there are oral dryness products that can be used to reduce dryness such as Biotene products, Dry mouth rinse and Xylomelts. Patient to discuss best option with dentist. Patient's apnea severity and rationale for treatment to reduce apnea, improve sleep quality and reduce cardiovascular and cerebrovascular events was reviewed. I also reviewed the benefit of consistent device use of CPAP for hypertension, diabetes, and gastric reflux. * Change auto CPAP pressure to 9-12 cmH2O * Notify me if snoring with mask or feeling that the pressure is too much or too little * Attempt to lose weight * Call this office if any problems using CPAP * Return for follow up in 1-2 months , or sooner if concerns arise Counseling Topics: Spare mask Visit Type: In Office Time Spent with Patient (minutes): 22 Provider Statement: I spent 100% of the Face to Face Visit with the patient with greater than 50% spent counseling the patient and coordination of care.
== END 2020-07-13 13:59 | disposition home or self-care (01) ==
LOC: SC 13:58
PROVIDERS: ATTEND Nurse Practitioner Family
DX: G47.33 Obstructive sleep apnea (adult) (pediatric) (principal); E66.01 Morbid (severe) obesity due to excess calories; Z68.43 Body mass index [BMI] 50.0-59.9, adult
CPT/HCPCS: 99213; G0463; 99212

== ENCOUNTER 2020-08-24 13:04 | Outpatient (CLI) | payer MEDICARE, MEDICAID ==
--- NOTE | 2020-08-24 13:16 | SLEEP CARE CONSULTATION ---
Information from patient questionnaire entered by Khadijah Boo. I have reviewed and concur with the information entered by Khadijah Boo. This document represents the service I personally performed and the decisions made by , Monique Hughes ARNP. History of Present Illness Service Date and Time: 08/24/2020 1304 Previous diagnosis: Moderate, Obstructive Sleep Apnea-Hypopnea Syndrome AHI: 23.8 (in 2007) Reason for follow up: other (6 week with pressure change) Equipment type: CPAP Equipment obtained from: [employer] (getting supplies as needed) Mask style: Nasal Backup mask available: Yes (old mask) Last cushion change: 2 weeks ago Prior sleep studies: Yes Year and Where: 2007 - [facility] additional information: SHINE THOMAS was diagnosed to have moderate, AHI 23.8, obstructive sleep apnea-hypopnea syndrome and returns via Telehealth visit today for CPAP therapy 6 week pressure change follow-up. CPAP Compliance Data - Data Reviewed with Patient Average duration of nightly device use: 7 hr 41 min Compliance rate %: 87 Current pressure setting (cmH2O): 9-12 Humidity settin Average residual AHI: 1.0 Subjective Patient concerns: denies: aerophagia, mask discomfort, air blowing in eyes, mask leak noise, condensation in mask/hose, nasal congestion, dry mouth, nose, throat, epistaxis, other Observed to snore while using device: No Current pressure setting perceived as: comfortable On therapy, patient: reports: sleeping better, awakening more refreshed, being more awake and alert during the day, more rested overall. denies: drowsiness while driving Initial [place] Sleepiness Scale score: 8 (in 2007) Current [place] Sleepiness Scale score: 9 Allergies and Home Medications Home medication list reviewed: Yes (medication to calm mind for sleep, not sure of name, started 2-3 days ago) Review of Systems Review of systems same as previous: No (possible prostate cancer) Physical Exam Vital signs obtained and entered by: Telehealth visit to limit exposure during Covid pandemic Height: 6 ft Impression and Plan 1. Obstructive Sleep Apnea-Hypopnea Syndrome, moderate, with good treatment com pliance and good apnea control. On CPAP therapy, the patient has better sleep quality and is more rested overall. He is happy with the change in pressure and has not complaints at this time. Patient's apnea severity and rationale for treatment to reduce apnea, improve sleep quality and reduce cardiovascular and cerebrovascular events was reviewed. I also reviewed the benefit of consistent device use of CPAP for hypertension, diabetes and gastric reflux. * Continue auto CPAP pressure at 9-12 cmH2O * Notify me if snoring with mask or feeling that the pressure is too much or too little * Attempt to lose weight * Call this office if any problems using CPAP * Return for follow up in 1 year, or sooner if concerns arise Counseling Topics: Spare mask, Weight loss health impact Visit Type: Telehealth Video Video Type: VSee Patient Location: Home Location of Provider: Office Patient agrees and consents to this telehealth visit type: Yes Patient agrees to have their insurance billed: Yes Time Spent with Patient (minutes): 17 Provider Statement: I spent 100% of the Telehealth Video Call with the patient with greater than 50% spent counseling the patient and coordination of care.
== END 2020-08-24 13:05 | disposition home or self-care (01) ==
LOC: SC 13:04
PROVIDERS: ATTEND Nurse Practitioner Family
DX: G47.33 Obstructive sleep apnea (adult) (pediatric) (principal)

== ENCOUNTER 2020-09-03 14:51 | Outpatient (CLI) | payer MEDICARE, MEDICAID ==
[2020-09-03 15:27] LABS: CALCIUM 9.7 mg/dL (8.5-10.3); CREATININE 1.1 mg/dL (0.6-1.2)
== END 2020-09-03 14:52 | disposition home or self-care (01) ==
LOC: LAB 14:51
PROVIDERS: ATTEND Nurse Practitioner Family
DX: E11.65 Type 2 diabetes mellitus with hyperglycemia (principal); Z79.4 Long term (current) use of insulin
CPT/HCPCS: 36415; 80048; 83036

== ENCOUNTER 2020-12-02 13:49 | Outpatient (CLI) | payer MEDICARE, MEDICAID ==
[2020-12-02 16:06] LABS: ESTIMATED AVERAGE GLUCOSE 197 mg/dL (70-100); HEMOGLOBIN A1c% 8.5 % (4.27-6.07)
== END 2020-12-02 13:50 | disposition home or self-care (01) ==
LOC: LAB 13:49
PROVIDERS: ATTEND Nurse Practitioner Family
DX: E11.65 Type 2 diabetes mellitus with hyperglycemia (principal); Z79.4 Long term (current) use of insulin
CPT/HCPCS: 36415; 83036

== ENCOUNTER 2020-12-09 15:18 | Outpatient (CLI) | payer MEDICARE, MEDICAID ==
[2020-12-09 16:16] LABS: RHEUMATOID FACTOR NEGATIVE (Negative)
== END 2020-12-09 15:19 | disposition home or self-care (01) ==
LOC: LAB 15:18
PROVIDERS: ATTEND Internal Medicine Rheumatology
DX: C61 Malignant neoplasm of prostate (principal); M25.50 Pain in unspecified joint
CPT/HCPCS: 36415; 84153; 85651; 86140; 86200; 86430

== ENCOUNTER 2020-12-09 15:44 | Outpatient (CLI) | payer MEDICARE, MEDICAID ==
--- NOTE | 2020-12-09 16:32 | XRAY Report ---
PROCEDURE: Hand 3 View BILAT INDICATIONS: JOINT PAIN HANDS TECHNIQUE: 3 views of each hand(s) acquired. COMPARISON: None FINDINGS: Bones: No fractures or dislocations. No suspicious bony lesions. Soft tissues: No suspicious soft tissue calcifications. IMPRESSION: No acute fracture. No osseous lesion. If symptoms and/or clinical suspicion for pathology continue, f urther assessment with repeat plain films, or advanced imaging (e.g., CT, MRI, or bone scan) is recom mended for further assessment. Reviewed by: Anastasia Wells MD on 12/09/2020 4:31 PM PDT Approved by: Anastasia Wells MD on 12/09/2020 4:31 PM PDT Station ID: [id number]
== END 2020-12-09 15:45 | disposition home or self-care (01) ==
LOC: DI 15:44
PROVIDERS: ATTEND Internal Medicine Rheumatology
DX: M79.642 Pain in left hand (principal); M79.641 Pain in right hand

== ENCOUNTER 2021-04-07 16:33 | Outpatient (CLI) | payer MEDICARE, MEDICAID ==
[2021-04-07 16:47] LABS: BASOPHILS # (AUTO) 0.1 10^3/uL (0.0-0.1); BASOPHILS % (AUTO) 0.7 %; EOSINOPHILS # (AUTO) 0.2 10^3/uL (0.0-0.7); EOSINOPHILS % (AUTO) 1.5 %; HCT - HEMATOCRIT 44.1 % (42.0-52.0); HGB - HEMOGLOBIN 14.6 g/dL (14.0-18.0); LYMPHOCYTES # (AUTO) 3.7 10^3/uL (1.5-3.5); LYMPHOCYTES % (AUTO) 35.4 %; MEAN CORPUSCULAR HEMOGLOBIN 29.3 pg (27.0-31.0); MEAN CORPUSCULAR HGB CONC 33.1 g/dL (32.0-36.0); MEAN CORPUSCULAR VOLUME 88.6 fL (80.0-94.0); MEAN PLATELET VOLUME 8.9 fL (7.4-11.4); MONOCYTES # (AUTO) 0.7 10^3/uL (0.0-1.0); MONOCYTES % (AUTO) 7.2 %; NEUTROPHILS # (AUTO) 5.7 10^3/uL (1.5-6.6); NEUTROPHILS % (AUTO) 54.8 %; PLT - PLATELET COUNT 337 10^3/uL (130-450); RED BLOOD COUNT 4.98 10^6/uL (4.70-6.10); RED CELL DISTRIBUTION WIDTH 13.2 % (12.0-15.0); WHITE BLOOD COUNT 10.3 x10^3/uL (4.8-10.8)
[2021-04-07 16:58] LABS: ALBUMIN 4.3 g/dL (3.2-5.5); ALBUMIN/GLOBULIN RATIO 1.2 (1.0-2.2); BILIRUBIN,TOTAL 0.6 mg/dL (0.2-1.0); CALCIUM 10.1 mg/dL (8.5-10.3); CREATININE 1.5 mg/dL (0.6-1.2); POTASSIUM 4.4 mmol/L (3.5-5.0); TOTAL PROTEIN 7.8 g/dL (6.7-8.2)
== END 2021-04-07 16:34 | disposition home or self-care (01) ==
LOC: LAB 16:33
PROVIDERS: ATTEND Internal Medicine Hematology & Oncology
DX: C61 Malignant neoplasm of prostate (principal)
CPT/HCPCS: 36415; 80053; 84153; 85025

== ENCOUNTER 2021-08-12 08:00 | Outpatient (CLI) | payer MEDICARE, MEDICAID | END 2021-08-12 23:59 | disposition home or self-care (01) | LOC: LAB.N 08:00 | PROVIDERS: ATTEND Nurse Practitioner | DX: L08.89 Other specified local infections of the skin and subcutaneous tissue (principal) | CPT/HCPCS: 87070; 87077; 87181; 87205 ==

== ENCOUNTER 2021-08-20 15:37 | Emergency (ER) | payer MEDICARE, MEDICAID ==
[2021-08-20 15:49] VITALS: BP 152/78
--- NOTE | 2021-08-20 16:07 | ED Physician Documentation ---
History of Present Illness - Stated complaint Stated Complaint: RT LEG PX/SWELLING/REDNESS - Chief complaint Chief Complaint: Ext Problem - Additonal information Additional information: 60-year-old male comes to the emergency department for evaluation of worsening right lower extremity erythema pain, swelling and now ulcer formation. He reports that on or about the or 10 August he began having right lower leg swelling and redness. He went to a local walk-in clinic and was diagnosed with cellulitis of this leg. He was started on Keflex and Bactrim. He fill the prescription that day and began taking as directed. Initially the symptoms were getting better but over the last 48 hours they have gotten progressively worse with increased pain in the anterior calf, swelling and redness. No fevers but patient endorses chills. He did go to the [employer] yesterday and swim for a bit. Following that he had increased pain in the leg. Over the last 48 hours he has begun to develop a shallow ulceration on the anterior saldivar. Review of Systems Constitutional: reports: Chills. denies: Fever Eyes: reports: Reviewed and negative Nose: reports: Reviewed and negative Throat: reports: Reviewed and negative Cardiac: reports: Reviewed and negative Respiratory: reports: Dyspnea (At baseline) GI: denies: Abdominal Pain, Nausea, Vomiting : reports: Reviewed and negative Skin: reports: Rash, Lesions Musculoskeletal: reports: Extremity pain Neurologic: reports: Reviewed and negative PD PAST MEDICAL HISTORY - Past Medical History Cardiovascular: Hypertension, High cholesterol Respiratory: Sleep apnea Neuro: None Endocrine/Autoimmune: Type 2 diabetes GI: GERD Psych: Anxiety Musculoskeletal: Osteoarthritis, Gout, Chronic back pain - Past Surgical History Past Surgical History: Yes Ortho: Knee replacement /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 HEENT: Tonsil/Adenoidectomy - Present Medications Home Medications: Ambulatory Orders Medication Instructions Recorded Confirmed Aspirin [Aspir 81] 81 mg DAILY 09/01/13 09/01/13 Cyclobenzaprine [Flexeril] 10 mg TID 09/01/13 09/01/13 Furosemide 80 mg DAILY 09/01/13 09/01/13 Gabapentin [Neurontin] 600 mg PO TID 09/01/13 09/01/13 Glimepiride 4 mg PO DAILY 09/01/13 09/01/13 Hydrocodone/Acetaminophen [Vicodin 1 - 2 tab Q4HR 09/01/13 09/01/13 Hp 10-300 mg Tablet] LORazepam [Ativan] 1 mg PO ONCE PRN 09/01/13 09/01/13 Multivitamin [Multi-Vitamin Daily] 1 tab DAILY 09/01/13 09/01/13 Omeprazole [PriLOSEC] 40 mg DAILY 09/01/13 09/01/13 Potassium Chloride [K-Dur] 40 mg DAILY 09/01/13 09/01/13 allopurinoL [Zyloprim] 100 mg DAILY 09/01/13 09/01/13 traMADol [Ultram] 1 - 2 tab TID 09/01/13 09/01/13 Atorvastatin Calcium 40 mg PO DAILY 12/21/15 12/21/15 Clobetasol Propionate/Emoll 12/21/15 [Clobetasol Emollient 0.05% Crm] Fluticasone Propionat,Microniz 12/21/15 [Fluticasone Propionate Micro] Losartan Potassium 100 mg PO DAILY 12/21/15 12/21/15 Pioglitazone HCl [Actos] 30 mg PO DAILY 12/21/15 12/21/15 Sucralfate 1 gm PO QID 12/21/15 12/21/15 metOLazone [Metolazone] 2.5 mg 12/21/15 Insulin Aspart [NovoLOG] 15 units TIDWM 08/21/19 08/21/19 Semaglutide [Ozempic] 0 mg SQ 08/21/19 raNITIdine [Zantac] 300 mg DAILY 08/21/19 08/21/19 Clindamycin [Cleocin] 450 mg PO TID 7 Days #63 cap 08/20/21 - Allergies Allergies/Adverse Reactions: Allergies Allergy/AdvReac Type Severity Reaction Status Date / Time acetaminophen [From Percocet] Allergy Respiratory Verified 08/20/21 15:49 oxycodone HCl * Allergy Respiratory Verified 08/20/21 15:49 [From Percocet] - Social History Does the pt smoke?: No Smoking Status: Former smoker Does the pt drink ETOH?: No Does the pt have substance abuse?: No - Immunizations Immunizations are current?: Yes - POLST Patient has POLST: No PD ED PE EXPANDED - General General: Alert, No acute distress, Other (Morbidly obese) - Cardiac Cardiac: Regular Rate, Radial strong equal, Pedal strong equal, Cap refill < 2 sec. No: Murmur Present - Respiratory Respiratory: Clear to ausultation mayra. No: Distress, Labored - Abdomen Abdomen: Normal Bowel sounds, Distended. No: Tender to palpation - Derm Derm: Rash (Bilateral lower extremity hemosiderin staining.), Other (Shallow 1 x 4 cm ulceration right lower anterior saldivar with a yellow eschar.) - Extremities Extremities: Right leg (foot and right lwoer extremity swelling. generalied and diffuse erythema with underlying hemosiderin staining. anterior saldivar ttp; shallow 1X4 cm ulcer on saldivar) - Neuro Neuro: Alert and Oriented X 3, CNII-XII intact - GCS Eye Opening: Spontaneous Motor: Obeys Commands Verbal: Oriented Total: 15 Results - Vitals Vitals: Vital Signs - 24 hr 08/20/21 08/20/21 15:45 16:26 Temperature 36.2 C L Heart Rate 106 H 100 Respiratory 20 22 Rate Blood Pressure 152/78 H O2 Saturation 96 95 Oxygen O2 Source Room air - Labs Labs: Laboratory Tests 08/20/21 08/20/21 16:11 16:11 WBC 5.8 RBC 4.54 L Hgb 13.7 L Hct 40.5 L MCV 89.2 MCH 30.2 MCHC 33.8 RDW 13.1 Plt Count 342 MPV 8.5 Neut # (Auto) 3.9 Lymph # (Auto) 1.0 L [place] # (Auto) 0.6 Eos # (Auto) 0.3 Baso # (Auto) 0.1 Absolute Nucleated RBC 0.00 Nucleated RBC % 0.0 Sodium 136 Potassium 4.1 Chloride 101 Carbon Dioxide 23 Anion Gap 12.0 BUN 22 H Creatinine 1.3 H Estimated GFR (MDRD) 56 L Glucose 287 H Calcium 9.1 Total Bilirubin 0.6 AST 39 ALT 35 Alkaline Phosphatase 104 C-Reactive Protein < 1.0 Total Protein 7.6 Albumin 3.7 Globulin 3.9 Albumin/Globulin Ratio 0.9 L Lipase 47 - Rads (name of study) US DVT Radiology: Final report received (Negative for deep vein thrombosis) PD MEDICAL DECISION MAKING - ED course Complexity details: reviewed results, re-evaluated patient, considered differential, d/w patient ED course: 60-year-old male presents emergency department for evaluation of worsening right lower extremity edema and erythema. He was diagnosed with lower extremity cellulitis on the and started on Keflex and Bactrim. Initially it was improving but then he went to a public pool and now has worsening erythema. He has extensive peripheral vascular disease and has been referred to a vascular specialist up in [place] with a planned procedure later this month. On exam he has erythema and tenderness though not out of proportion. He is developing a superficial ulcer on the anterior saldivar. Screening labs do not show any leukocytosis and his CRP is not elevated. Ultrasound DVT was negative. I suspect that this is a combination of worsening peripheral vascular disease as well as a mild cellulitis. Patient will be transition from Keflex and Bactrim to clindamycin. He was advised to elevate the right leg as much as possible to help reduce the edema and peripheral vascular disease advised close follow-up with primary care doctor. Likely would benefit from a wound therapy consult. Emergent return precautions otherwise discussed. Departure - Departure Disposition: Home, Self Care Clinical Impression: Peripheral vascular disease, Cellulitis of right leg Ulcer of right leg Qualifiers: Non-pressure ulcer stage: limited to breakdown of skin Qualified Code(s): L97.911 - Non-pressure chronic ulcer of unspecified part of right lower leg limited to breakdown of skin Condition: Stable Record reviewed to determine appropriate education?: Yes Instructions: ED PVD, ED Ulcer Venous Leg Follow-Up: Jeremiah Leal MD [Primary Care Provider] - Prescriptions: Clindamycin [Cleocin] 450 mg PO TID 7 Days #63 cap Comments: Jamari us are seen today for concerns of increased swelling and redness on your right lower leg as well as the development of a superficial ulcer. You have a clinical condition called peripheral vascular disease. This is what is driving much of the skin discoloration as well as the ulcer formation. You do also have a superficial bacterial infection of the skin. Lets have you stop taking the Keflex and Bactrim and begin taking clindamycin. This has been sent to the [facility] pharmacy in [place]. Part of management of peripheral vascular disease is elevation of the legs and reducing edema. So please elevate your legs as much as you can at night. Please ask your primary care doctor to refer you to the wound clinic for further long-term management of the ulcer that is forming. Do not miss follow-up with a vascular appointment scheduled for later this month. If despite the antibiotics and leg elevation you have worsening symptoms, any fevers or red streaking then please return immediately to the ER for a second evaluation
[2021-08-20 16:17] LABS: BASOPHILS # (AUTO) 0.1 10^3/uL (0.0-0.1); EOSINOPHILS # (AUTO) 0.3 10^3/uL (0.0-0.7); HCT - HEMATOCRIT 40.5 % (42.0-52.0); HGB - HEMOGLOBIN 13.7 g/dL (14.0-18.0); LYMPHOCYTES % (AUTO) 17.1 %; MEAN CORPUSCULAR HEMOGLOBIN 30.2 pg (27.0-31.0); MEAN CORPUSCULAR HGB CONC 33.8 g/dL (32.0-36.0); MEAN CORPUSCULAR VOLUME 89.2 fL (80.0-94.0); MEAN PLATELET VOLUME 8.5 fL (7.4-11.4); MONOCYTES # (AUTO) 0.6 10^3/uL (0.0-1.0); MONOCYTES % (AUTO) 10.2 %; NEUTROPHILS # (AUTO) 3.9 10^3/uL (1.5-6.6); NEUTROPHILS % (AUTO) 66.5 %; PLT - PLATELET COUNT 342 10^3/uL (130-450); RED BLOOD COUNT 4.54 10^6/uL (4.70-6.10); RED CELL DISTRIBUTION WIDTH 13.1 % (12.0-15.0); WHITE BLOOD COUNT 5.8 x10^3/uL (4.8-10.8)
[2021-08-20 16:33] LABS: ALBUMIN 3.7 g/dL (3.2-5.5); ALBUMIN/GLOBULIN RATIO 0.9 (1.0-2.2); ALKALINE PHOSPHATASE 104 IU/L (42-121); ALT ALANINE AMINOTRANSFERASE 35 IU/L (10-60); AST ASPARTATE AMINOTRANSFERASE 39 IU/L (10-42); BILIRUBIN,TOTAL 0.6 mg/dL (0.2-1.0); BUN - BLOOD UREA NITROGEN 22 mg/dL (6-20); CALCIUM 9.1 mg/dL (8.5-10.3); CARBON DIOXIDE - CO2 23 mmol/L (21-32); CHLORIDE 101 mmol/L (101-111); CREATININE 1.3 mg/dL (0.6-1.2); GFR - MDRD 56 (>89); GLUCOSE 287 mg/dL (70-100); LIPASE 47 U/L (22-51); POTASSIUM 4.1 mmol/L (3.5-5.0); SODIUM 136 mmol/L (135-145); TOTAL PROTEIN 7.6 g/dL (6.7-8.2)
[2021-08-20 16:35] LABS: CRP - C-REACTIVE PROTEIN < 1.0 mg/dL (0-1.0)
--- NOTE | 2021-08-20 17:22 | Ultrasound Report ---
PROCEDURE: Duplex Ext Veins Right INDICATIONS: swelling/erythema; r/o clot TECHNIQUE: Real-time imaging, as well as color and pulse Doppler interrogation, were performed of the lower extr emity deep veins from the inguinal ligament to the popliteal fossa. COMPARISON: None. FINDINGS: The deep veins are normally compressible, and free of intraluminal thrombus. Color and pu lse Doppler demonstrate normal phasic intraluminal flow. There is normal augmentation response to di stal compression maneuver. There is an irregular fluid collection seen involving the anterior calf without abnormal vascularity that measures 5.4 x 0.8 x 4.9 cm. IMPRESSION: No findings of deep venous thrombosis are seen. Irregular fluid collection involving the anterior calf, which is nonspecific, yet most likely is rela sasha to a hematoma. If this does not resolve in approximately 6 weeks, please consider ultrasound foll ow-up. Note: Concordant preliminary findings given by the general intern upon the completion of the examination to [place] at 5:00 PM on 08/20/2021. Reviewed by: Barrie Asher MD on 08/20/2021 4:20 PM [facility] Approved by: Barrie Asher MD on 08/20/2021 4:20 PM [facility] Station ID: [id number]
== END 2021-08-20 18:12 | disposition home or self-care (01) ==
LOC: ED 15:37
DX: Z87.891 Personal history of nicotine dependence (principal); I73.9 Peripheral vascular disease, unspecified; L03.115 Cellulitis of right lower limb; L97.911 Non-pressure chronic ulcer of unspecified part of right lower leg limited to breakdown of skin
CPT/HCPCS: 36415; 80053; 83690; 85025; 86140; 99284

== ENCOUNTER 2021-10-07 15:11 | Outpatient (CLI) | payer MEDICARE, MEDICAID | END 2021-10-07 15:12 | disposition home or self-care (01) | LOC: LAB 15:11 | PROVIDERS: ATTEND Specialist | DX: C61 Malignant neoplasm of prostate (principal) | CPT/HCPCS: 36415; 84153 ==

== ENCOUNTER 2022-01-05 14:47 | Outpatient (CLI) | payer MEDICARE, MEDICAID | END 2022-01-05 14:48 | disposition home or self-care (01) | LOC: LAB 14:47 | PROVIDERS: ATTEND Specialist | DX: R97.20 Elevated prostate specific antigen [PSA] (principal) | CPT/HCPCS: 36415; 84153 ==

== ENCOUNTER 2022-01-30 12:55 | Emergency (ER) | payer MEDICARE, MEDICAID ==
--- NOTE | 2022-01-30 13:23 | ED Physician Documentation ---
History of Present Illness - Stated complaint Stated Complaint: ALTERED VISION/TINGLING IN BODY - Chief complaint Chief Complaint: Cardiac - History obtained from History obtained from: Patient - History of Present Illness Timing: Today Pain level max: 0 Pain level now: 0 - Additonal information Additional information: 61-year-old male presents to the emergency department complaining of tingling to all 4 extremities today. He states he was at physical therapy and they recommended he come here for evaluation. He is diabetic but has not checked his blood sugar. No fevers. No chills. No cough. No congestion. No vomiting. No diarrhea. No chest pain. No shortness of breath. He states his vision fee ls "wavy". He is unable to describe this any further. He states that he is tired, states did not sleep well last night. Review of Systems Ten Systems: 10 systems reviewed and negative Constitutional: denies: Fever, Chills Ears: denies: Ear pain Nose: denies: Rhinorrhea / runny nose, Congestion Throat: denies: Sore throat Cardiac: denies: Chest pain / pressure, Palpitations Respiratory: denies: Dyspnea, Cough GI: denies: Abdominal Pain, Nausea, Vomiting, Diarrhea Skin: denies: Rash Musculoskeletal: denies: Neck pain, Back pain Neurologic: denies: Headache PD PAST MEDICAL HISTORY - Past Medical History Cardiovascular: Hypertension, High cholesterol Respiratory: Sleep apnea Neuro: None Endocrine/Autoimmune: Type 2 diabetes GI: GERD Psych: Anxiety Musculoskeletal: Osteoarthritis, Gout, Chronic back pain - Past Surgical History Past Surgical History: Yes Ortho: Knee replacement /[employer] 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 HEENT: Tonsil/Adenoidectomy - Present Medications Home Medications: Ambulatory Orders Medication Instructions Recorded Confirmed Aspirin [Aspir 81] 81 mg DAILY 09/01/13 01/30/22 Furosemide 80 mg DAILY 09/01/13 01/30/22 Gabapentin [Neurontin] 600 mg PO TID 09/01/13 01/30/22 Hydrocodone/Acetaminophen [Vicodin 1 - 2 tab Q4HR 09/01/13 01/30/22 Hp 10-300 mg Tablet] LORazepam [Ativan] 1 mg PO ONCE PRN 09/01/13 01/30/22 Multivitamin [Multi-Vitamin Daily] 1 tab DAILY 09/01/13 01/30/22 Omeprazole [PriLOSEC] 40 mg DAILY 09/01/13 01/30/22 Potassium Chloride [K-Dur] 40 mg DAILY 09/01/13 01/30/22 allopurinoL [Zyloprim] 100 mg DAILY 09/01/13 01/30/22 traMADol [Ultram] 1 - 2 tab TID 09/01/13 01/30/22 Atorvastatin Calcium 40 mg PO DAILY 12/21/15 01/30/22 Clobetasol Propionate/Emoll 12/21/15 [Clobetasol Emollient 0.05% Crm] Fluticasone Propionat,Microniz 12/21/15 [Fluticasone Propionate Micro] Losartan Potassium 100 mg PO DAILY 12/21/15 01/30/22 Pioglitazone HCl [Actos] 30 mg PO DAILY 12/21/15 01/30/22 Sucralfate 1 gm PO QID 12/21/15 01/30/22 metOLazone [Metolazone] 2.5 mg 12/21/15 Insulin Aspart [NovoLOG] 15 units TIDWM 08/21/19 01/30/22 Semaglutide [Ozempic] 0 mg SQ 08/21/19 - Allergies Allergies/Adverse Reactions: Allergies Allergy/AdvReac Type Severity Reaction Status Date / Time acetaminophen [From Percocet] Allergy Respiratory Verified 01/30/22 13:11 oxycodone HCl * Allergy Respiratory Verified 01/30/22 13:11 [From Percocet] - Social History Does the pt smoke?: No Smoking Status: Former smoker Does the pt drink ETOH?: No Does the pt have substance abuse?: No - Immunizations Immunizations are current?: Yes - POLST Patient has POLST: No PD ED PE NORMAL - Vitals Vital signs reviewed: Yes - General General: Alert and oriented X 3, No acute distress - HEENT HEENT: Moist mucous membranes - Neck Neck: Supple, no meningeal sign - Cardiac Cardiac: RRR - Respiratory Respiratory: No respiratory distress, Clear bilaterally - Abdomen Abdomen: Soft, Non tender, Non distended - Back Back: No CVA TTP, No spinal TTP - Derm Derm: Warm and dry - Extremities Extremities: No edema, No calf tenderness / cord - Neuro Neuro: Alert and oriented X 3, freight 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, No motor deficit, No sensory deficit, Normal speech Eye Opening: Spontaneous Verbal: Oriented - Psych Psych: Normal mood, Normal affect Results - Vitals Vitals: Vital Signs - 24 hr 01/30/22 13:05 Temperature 36.1 C L Heart Rate 100 Respiratory 16 Rate Blood Pressure 117/61 O2 Saturation 96 Oxygen O2 Source Room air - Labs Labs: Laboratory Tests 01/30/22 01/30/22 01/30/22 13:27 13:27 13:27 WBC 6.7 RBC 4.57 L Hgb 13.3 L Hct 40.1 L MCV 87.7 MCH 29.1 MCHC 33.2 RDW 13.5 Plt Count 296 MPV 8.9 Neut # (Auto) 4.8 Lymph # (Auto) 1.2 L [place] # (Auto) 0.5 Eos # (Auto) 0.1 Baso # (Auto) 0.0 Absolute Nucleated RBC 0.00 Nucleated RBC % 0.0 Sodium 138 Potassium 4.1 Chloride 96 L Carbon Dioxide 27 Anion Gap 15.0 H BUN 25 H Creatinine 1.6 H Estimated GFR (MDRD) 44 L Glucose 286 H Calcium 9.4 Phosphorus 4.4 Magnesium 1.5 L Total Bilirubin 0.4 AST 31 ALT 33 Alkaline Phosphatase 90 Troponin I High Sens 4.3 Total Protein 7.3 Albumin 3.9 Globulin 3.4 Albumin/Globulin Ratio 1.1 Lipase 43 PD MEDICAL DECISION MAKING - ED course Complexity details: reviewed results, re-evaluated patient, considered d ifferential, d/w patient ED course: Patient was found to be hyperglycemic, his average blood sugar is usually around 200. He was given IV fluids. Magnesium was also mildly low. Magnesium was replaced. Symptoms resolved. Patient is asymptomatic. We will have him continue to monitor his blood sugars at home and follow-up with his doctor for further care. Patient counseled regarding signs and symptoms for which I believe and urgent re-evaluation would be necessary. Patient with good understanding of and agreement to plan and is comfortable going home at this time This document was made in part using voice recognition software. While efforts are made to proofread this document, sound alike and grammatical errors may occur. Symptoms are not consistent with TIA, stroke, [place]. Departure - Departure Disposition: Home, Self Care Clinical Impression: Hyperglycemia, Hypomagnesemia, Dehydration, moderate Diabetes type 2, uncontrolled Qualifiers: Glycemic state: with hyperglycemia Qualified Code(s): E11.65 - Type 2 diabetes mellitus with hyperglycemia Condition: Good Instructions: Hypomagnesemia Dc, ED Hyperglycemia Diabetic Follow-Up: your,doctor in 1 week [Other] - Within 1 week Comments: Please follow-up with your doctor for further care. Return if you worsen. Make sure you continue to check your blood sugar at home and make sure to drink plenty of water. Your magnesium was slightly low and your blood sugar was high today. NIHSS - Time Time: 13:30 - Level of Consciousness Level of consciousness: (0) Alert, Keenly responsive LOC Questions: (0) Answers both Q's correct LOC Commands: (0) Performs both correctly - Gaze Best Gaze: (0) Normal - Visual Visual: (0) No loss - Facial Palsy Facial Palsy: (0) Normal, symmetrical movement - Motor Arms (both separate) Motor Arm (right): (0) No drift Motor Arm (left): (0) No drift - Motor Legs (both separate) Motor Leg (right): (0) No drift Motor Leg (left): (0) No drift - Limb Ataxia Limb Ataxia: (0) Absent - Sensory Sensory: (0) Normal - Best Language Best Language: (0) No aphasia - Dysarthria Dysarthria: (0) Normal - Extinction and Inattention (formally neg Extinction and inattention: (0) No abnormality - Total Score/Results Total Score/Result: 0
--- OUTSIDE RECORDS SUMMARY | 2022-01-30 13:29 | EXTERNAL MEDICAL SUMMARY RPT | Continuity of Care Document ---
:1960 Author Organization [facility] Address [address] [place] [address] Phone Allergies No information. Encounters No information. Functional Status No information. Immunizations No information. Medications date description facility [id number] Ketoconazole 20 MG/ML Medicated [facility] [id number]+0000 Lorazepam 1 MG Oral Tablet [facility] [id number]+0000 Metolazone 2.5 MG Oral Tablet [facility] [id number]+0000 Metolazone 2.5 MG Oral Tablet [facility] [id number]+0000 Omeprazole 20 MG Enteric Coated [facility] [id number]+0000 Furosemide 40 MG Oral Tablet [facility] [id number]+0000 tramadol hydrochloride 50 MG Oral [facility] [id number]+0000 tramadol hydrochloride 50 MG Oral [facility] [id number]+0000 Acetaminophen 325 MG / Hydrocodone Is [facility] Bitartrate 10 MG Oral Tablet [id number]+0000 Acetaminophen 325 MG / Hydrocodone Is [facility] Bitartrate 10 MG Oral Tablet [id number]+0000 Acetaminophen 325 MG / Hydrocodone Is [facility] Bitartrate 10 MG Oral Tablet [id number]+0000 Acetaminophen 325 MG / Hydrocodone Is [facility] Bitartrate 10 MG Oral Tablet [id number]+0000 Tamsulosin hydrochloride 0.4 MG Oral C [facility] Problems No information. Procedures date description facility [id number]+0000 [facility] [id number]+0000 [facility] Results/Labs test date author facility value unit interpret ation Result panel 1 (unknown) (no (unknown) (unknown) (no value) (units (unk nown) date) unknown) (unknown) (no (unknown) (unknown) (no value) (units (unk nown) date) unknown) (unknown) (no (unknown) (unknown) (no value) (units (unk nown) date) unknown) (unknown) (no (unknown) (unknown) 11/01/21 (units (unkno wn) date) unknown) (unknown) (no (unknown) (unknown) 14:46 (units (unkno wn) date) unknown) (unknown) (no (unknown) (unknown) ANAPHYLAXIS/PERCOC (units (unknown) date) ET. No Tylenol unknown) allergy (unknown) (no (unknown) (unknown) [place] (units ( unknown) date) [id number] unknown) (unknown) (no (unknown) (unknown) [place] (units (unkno wn) date) unknown) (unknown) (no (unknown) (unknown) Family history of (units (unknown) date) type 2 diabetes unknown) mellitus (unknown) (no (unknown) (unknown) [facility] (units (unknown) date) [facility] unknown) (unknown) (no (unknown) (unknown) Internal Medicine (units (unknown) date) Office Visit unknown) (unknown) (no (unknown) (unknown) (no value) (units (unk nown) date) unknown) (unknown) (no (unknown) (unknown) #180 tab 04/18/21 (units (unknown) date) [Rx Confirmed unknown) 11/01/21] (unknown) (no (unknown) (unknown) (Cortisporin-TC) 3 (units (unknown) date) drop EAR-LEFT TID unknown) #10 ml 03/15/20 [Rx Confirmed 11/01/21] (unknown) (no (unknown) (unknown) [id number] (units (unkno wn) date) unknown) (unknown) (no (unknown) (unknown) 10/26/21 [Rx (units (u nknown) date) Confirmed 11/01/21] unknown) (unknown) (no (unknown) (unknown) 11/01/21 (units (unkno wn) date) unknown) (unknown) (no (unknown) (unknown) 11/01/21] (units (unkn own) date) unknown) (unknown) (no (unknown) (unknown) 05/11/21 [History (units (unknown) date) Confirmed 11/01/21] unknown) (unknown) (no (unknown) (unknown) Age/Sex: 60 / M (units (unknown) date) Date of Service: unknown) (unknown) (no (unknown) (unknown) Allergies (units (unkn own) date) unknown) (unknown) (no (unknown) (unknown) Attending Dr: Jeremiah (units (unknown) date) Shantell Leal MD unknown) (unknown) (no (unknown) (unknown) BMI 51.7 (units (un known) date) unknown) (unknown) (no (unknown) (unknown) BP 130/68 (units (u nknown) date) unknown) (unknown) (no (unknown) (unknown) BPH w urinary (units ( unknown) date) obs/LUTS unknown) (unknown) (no (unknown) (unknown) Blood Pressure (units (unknown) date) Location Lt unknown) brachial (unknown) (no (unknown) (unknown) CA (units (unkno wn) date) PANTOTHENATE/FOLIC unknown) ACID/VIT (MULTIVITAMIN) 1 tab PO Q DAY #0 03/21/11 (unknown) (no (unknown) (unknown) Carpal tunnel (units ( unknown) date) syndrome unknown) (unknown) (no (unknown) (unknown) Confirmed (units (unkn own) date) 11/01/21] unknown) (unknown) (no (unknown) (unknown) : 1960 (units (unknown) date) Acct:[id number] unknown) (unknown) (no (unknown) (unknown) Dept at (units (unkno wn) date) . unknown) (unknown) (no (unknown) (unknown) Diabetic (units (unkno wn) date) polyneuropathy unknown) associated with type 2 diabetes mellitus (05/27/15) (unknown) (no (unknown) (unknown) Disabled Parking (units (unknown) date) #1 each 06/26/19 unknown) [Rx Confirmed 11/01/21] (unknown) (no (unknown) (unknown) Documented By: (units (unknown) date) Jeremiah Leal MD unknown) 11/01/21 1444 (unknown) (no (unknown) (unknown) Erectile (units (unkno wn) date) dysfunction unknown) (unknown) (no (unknown) (unknown) Essential (units (unkn own) date) hypertension unknown) (03/21/11) (unknown) (no (unknown) (unknown) Family History (units (unknown) date) (Reviewed 10/18/21 unknown) @ 14:19 by Margaret Pires MD) (unknown) (no (unknown) (unknown) Gastroesophageal (units (unknown) date) reflux disease with unknown) esophagitis (05/15/16) (unknown) (no (unknown) (unknown) Glucose: Home (units ( unknown) date) Monitor dev #1 unknown) 04/03/16 [Rx Confirmed 11/01/21] (unknown) (no (unknown) (unknown) Glucose: Test (units ( unknown) date) Strips #100 ea unknown) 01/06/21 [Rx Confirmed 11/01/21] (unknown) (no (unknown) (unknown) Height 6 ft (units (unknown) date) unknown) (unknown) (no (unknown) (unknown) History of knee (units (unknown) date) replacement unknown) (unknown) (no (unknown) (unknown) History of (units (unk nown) date) nephrolithiasis unknown) (unknown) (no (unknown) (unknown) INTRANASAL BEDTIME (units (unknown) date) PRN ml 05/11/21 unknown) [History Confirmed 11/01/21] (unknown) (no (unknown) (unknown) 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 (03/21/11) (unknown) (no (unknown) (unknown) Insulin) 78 unit (units (unknown) date) SUBCUT BID ml unknown) 07/19/21 [History Confirmed 11/01/21] (unknown) (no (unknown) (unknown) Intake (units (unkno wn) date) unknown) (unknown) (no (unknown) (unknown) Intake Note: (units (u nknown) date) unknown) (unknown) (no (unknown) (unknown) Lancets dev (units (un known) date) INTRADERMAL BID unknown) #200 12/01/16 [Rx Confirmed 11/01/21] (unknown) (no (unknown) (unknown) Left-sided low (units (unknown) date) back pain with unknown) left-sided sciatica (04/27/15) (unknown) (no (unknown) (unknown) Loc: [facility] (units (unkno wn) date) unknown) (unknown) (no (unknown) (unknown) Lower urinary (units ( unknown) date) tract symptoms unknown) (LUTS) (unknown) (no (unknown) (unknown) Medical History (units (unknown) date) (Reviewed 10/18/21 unknown) @ 14:19 by Margaret Pires MD) (unknown) (no (unknown) (unknown) Medications (units (un known) date) unknown) (unknown) (no (unknown) (unknown) Mixed (units (unkno wn) date) hyperlipidemia unknown) (03/21/11) (unknown) (no (unknown) (unknown) Morbid obesity (units (unknown) date) unknown) (unknown) (no (unknown) (unknown) Obstructive sleep (units (unknown) date) apnea syndrome unknown) (03/21/11) (unknown) (no (unknown) (unknown) Oxygen Delivery (units (unknown) date) Method room air unknown) (unknown) (no (unknown) (unknown) PFSH (units (unkno wn) date) unknown) (unknown) (no (unknown) (unknown) Patient: (units (unkno wn) date) [employer] A unknown) MR#: [id number] (unknown) (no (unknown) (unknown) Peripheral edema (units (unknown) date) (05/27/15) unknown) (unknown) (no (unknown) (unknown) Position (units (unkno wn) date) Sitting unknown) (unknown) (no (unknown) (unknown) Power Lift Chair (units (unknown) date) #1 ea 12/03/20 [Rx unknown) Confirmed 11/01/21] (unknown) (no (unknown) (unknown) Primary (units (unkno wn) date) osteoarthritis unknown) involving multiple joints (11/11/13) (unknown) (no (unknown) (unknown) Primary (units (unkno wn) date) osteoarthritis of unknown) both knees (02/26/17) (unknown) (no (unknown) (unknown) Prostate cancer (units (unknown) date) unknown) (unknown) (no (unknown) (unknown) Prostatic ductal (units (unknown) date) adenocarcinoma unknown) (unknown) (no (unknown) (unknown) Pulse 103 H (units (unknown) date) unknown) (unknown) (no (unknown) (unknown) Pulse Oximetry (%) (units (unknown) date) 97 unknown) (unknown) (no (unknown) (unknown) Pulse Source (units (u nknown) date) Monitor unknown) (unknown) (no (unknown) (unknown) Reason For Visit (units (unknown) date) unknown) (unknown) (no (unknown) (unknown) Restrictive lung (units (unknown) date) disease unknown) (unknown) (no (unknown) (unknown) See Rx (units (unkno wn) date) Instructions SUBCUT unknown) TID 06/04/20 [History Confirmed 11/01/21] (unknown) (no (unknown) (unknown) Signed By: (units (unk nown) date) unknown) (unknown) (no (unknown) (unknown) Smoking Status: (units (unknown) date) Former smoker unknown) (unknown) (no (unknown) (unknown) Sock Aid #2 ea (units (unknown) date) 02/11/21 [Rx unknown) Confirmed 11/01/21] (unknown) (no (unknown) (unknown) Status post (units (un known) date) tonsillectomy and unknown) adenoidectomy (unknown) (no (unknown) (unknown) Surgical History (units (unknown) date) (Reviewed 10/18/21 unknown) @ 14:19 by Margaret Pires MD) (unknown) (no (unknown) (unknown) TIA (transient (units (unknown) date) ischemic attack) unknown) (unknown) (no (unknown) (unknown) This note may have (units (unknown) date) been all or unknown) partially generated using voice recognition (unknown) (no (unknown) (unknown) Tobacco + (units (unkn own) date) Substance Use unknown) (unknown) (no (unknown) (unknown) Tobacco Status (units (unknown) date) unknown) (unknown) (no (unknown) (unknown) Type 2 diabetes (units (unknown) date) mellitus with unknown) hyperglycemia, with long-term current use of (unknown) (no (unknown) (unknown) Type 2 diabetes (units (unknown) date) mellitus with unknown) hypoglycemia without coma (04/27/15) (unknown) (no (unknown) (unknown) Unknown Family (units (unknown) date) history of breast unknown) cancer (unknown) (no (unknown) (unknown) Venous (units (unkno wn) date) insufficiency unknown) (unknown) (no (unknown) (unknown) Venous stasis (units ( unknown) date) unknown) (unknown) (no (unknown) (unknown) Visit Reasons: (units (unknown) date) Follow Up unknown) Meds/Weight/DM (unknown) (no (unknown) (unknown) Vitals (units (unkno wn) date) unknown) (unknown) (no (unknown) (unknown) Vitamin D (units (unkn own) date) deficiency unknown) (unknown) (no (unknown) (unknown) Weight 381 lb 4 (units (unknown) date) oz unknown) (unknown) (no (unknown) (unknown) [History Confirmed (units (unknown) date) 11/01/21] unknown) (unknown) (no (unknown) (unknown) [Rx Confirmed (units ( unknown) date) 11/01/21] unknown) (unknown) (no (unknown) (unknown) acetaminophen (units ( unknown) date) [From Percocet] unknown) Allergy (Verified 11/01/21 14:46) (unknown) (no (unknown) (unknown) allopurinol 100 mg (units (unknown) date) tablet 100 mg PO unknown) DAILY #90 tab 09/12/21 [Rx Confirmed (unknown) (no (unknown) (unknown) atorvastatin 40 mg (units (unknown) date) tablet 40 mg PO unknown) BEDTIME #90 tab 09/12/21 [Rx Confirmed (unknown) (no (unknown) (unknown) bicalutamide 50 mg (units (unknown) date) tablet (Casodex) 50 unknown) mg PO DAILY #30 tab 02/11/21 [Rx (unknown) (no (unknown) (unknown) clobetasol 0.05 % (units (unknown) date) topical cream unknown) (Temovate) 0.05 % TOPICAL PRN #60 gm 12/30/19 (unknown) (no (unknown) (unknown) cyclobenzaprine 10 (units (unknown) date) mg tablet 10 mg PO unknown) TIDP PRN #90 tab 12/30/19 [Rx Confirmed (unknown) (no (unknown) (unknown) dulaglutide 1.5 (units (unknown) date) mg/0.5 mL unknown) subcutaneous pen injector 3 mg SUBCUT QWEEK ml (unknown) (no (unknown) (unknown) f/u DM (units (unkno wn) date) unknown) (unknown) (no (unknown) (unknown) f/u meds (units (unkno wn) date) unknown) (unknown) (no (unknown) (unknown) f/u wt- (units (unkno wn) date) unknown) (unknown) (no (unknown) (unknown) famotidine 40 mg (units (unknown) date) tablet 40 mg PO unknown) DAILY #90 tab 12/24/20 [Rx Confirmed 11/01/21] (unknown) (no (unknown) (unknown) fluticasone (units (un known) date) propionate 50 unknown) mcg/actuation nasal spray,suspension 2 spray (unknown) (no (unknown) (unknown) furosemide 40 mg (units (unknown) date) tablet 80 mg PO unknown) DAILY #180 tab 12/02/20 [Rx Confirmed 11/01/21] (unknown) (no (unknown) (unknown) gabapentin 600 mg (units (unknown) date) tablet 1,200 mg PO unknown) TID #360 tab 12/30/19 [Rx Confirmed (unknown) (no (unknown) (unknown) have occurred. If (units (unknown) date) there are any unknown) questions, please contact the Medical Records (unknown) (no (unknown) (unknown) having trouble (units (unknown) date) breathing - sob, unknown) wheezing (unknown) (no (unknown) (unknown) hydrocodone 10 (units (unknown) date) mg-acetaminophen unknown) 325 mg tablet 1 - 2 tab PO Q4H PRN #180 tab (unknown) (no (unknown) (unknown) insulin (units (unkno wn) date) unknown) (unknown) (no (unknown) (unknown) insulin glargine (units (unknown) date) 100 unit/mL (3 mL) unknown) subcutaneous pen (Lantus Solostar U-100 (unknown) (no (unknown) (unknown) insulin lispro 100 (units (unknown) date) unit/mL unknown) subcutaneous pen (Humalog KwikPen (U-100) Insulin) (unknown) (no (unknown) (unknown) latex gloves #500 (units (unknown) date) each 04/10/20 [Rx unknown) Confirmed 11/01/21] (unknown) (no (unknown) (unknown) lorazepam 1 mg (units ( unknown) date) tablet 1 mg PO unknown) DAILY PRN #20 tab 04/18/21 [Rx Confirmed 11/01/21] (unknown) (no (unknown) (unknown) losartan 100 mg (units (unknown) date) tablet 100 mg PO unknown) QDAY #90 tab 02/10/21 [Rx Confirmed 11/01/21] (unknown) (no (unknown) (unknown) may occur. (units (unk nown) date) Occasional unknown) wrong-word or 'sound-alike' substitutions may have (unknown) (no (unknown) (unknown) metformin 1,000 mg (units (unknown) date) tablet 1,000 mg PO unknown) BID 03/15/20 [History Confirmed 11/01/21] (unknown) (no (unknown) (unknown) metolazone 2.5 mg (units (unknown) date) tablet 2.5 mg PO Q unknown) OTHER DAY #16 tab 04/18/21 [Rx Confirmed (unknown) (no (unknown) (unknown) [id number]-SW (units (unknown) date) -thonzonm 3.3 mg-3 unknown) mg-10 mg-0.5 mg/mL ear drops,susp (unknown) (no (unknown) (unknown) occurred due to (units (unknown) date) the inherent unknown) limitations of voice recognition software. Please (unknown) (no (unknown) (unknown) omeprazole 20 mg (units (unknown) date) capsule,delayed unknown) release 20 mg PO BID #180 cap 04/18/21 [Rx (unknown) (no (unknown) (unknown) oxycodone (units (unkn own) date) [OXYCODONE] Allergy unknown) (Severe, Verified 11/01/21 14:46) (unknown) (no (unknown) (unknown) potassium chloride (units (unknown) date) 20 mEq unknown) tablet,extended release(part/cryst) 40 meq PO QDAY (unknown) (no (unknown) (unknown) primidone 50 mg (units (unknown) date) tablet 50 - 100 mg unknown) PO BID tab 05/11/21 [History Confirmed (unknown) (no (unknown) (unknown) read the note (units ( unknown) date) carefully and unknown) recognize, using context, where these substitutions (unknown) (no (unknown) (unknown) software. Although (units (unknown) date) every effort is unknown) made to edit content, technical manager errors (unknown) (no (unknown) (unknown) sucralfate 1 gram (units (unknown) date) tablet 1 g PO ACHS unknown) #360 tab 09/12/21 [Rx Confirmed 11/01/21] (unknown) (no (unknown) (unknown) tramadol 50 mg (units (unknown) date) tablet 50 mg PO TID unknown) PRN #90 tab 10/18/21 [Rx Confirmed 11/01/21] (unknown) (no (unknown) (unknown) trazodone 50 mg (units (unknown) date) tablet 50 mg PO unknown) BEDTIME #90 tab 09/12/21 [Rx Confirmed 11/01/21] Result panel 2 (unknown) (no (unknown) (unknown) (no value) (units (unk nown) date) unknown) (unknown) (no (unknown) (unknown) Status: Chronic (units (unknown) date) unknown) (unknown) (no (unknown) (unknown) (no value) (units (unk nown) date) unknown) (unknown) (no (unknown) (unknown) (no value) (units (unk nown) date) unknown) (unknown) (no (unknown) (unknown) 11/01/21 (units (unkno wn) date) unknown) (unknown) (no (unknown) (unknown) 11/01/21 1512 (units ( unknown) date) unknown) (unknown) (no (unknown) (unknown) 14:46 (units (unkno wn) date) unknown) (unknown) (no (unknown) (unknown) ANAPHYLAXIS/PERCOC (units (unknown) date) ET. No Tylenol unknown) allergy (unknown) (no (unknown) (unknown) [place] (units ( unknown) date) [id number] unknown) (unknown) (no (unknown) (unknown) Family history of (units (unknown) date) type 2 diabetes unknown) mellitus (unknown) (no (unknown) (unknown) [facility] (units (unknown) date) [facility] unknown) (unknown) (no (unknown) (unknown) Internal Medicine (units (unknown) date) Office Visit unknown) (unknown) (no (unknown) (unknown) Signed (units (unkno wn) date) unknown) (unknown) (no (unknown) (unknown) (no value) (units (unk nown) date) unknown) (unknown) (no (unknown) (unknown) #180 tab 04/18/21 (units (unknown) date) [Rx Confirmed unknown) 11/01/21] (unknown) (no (unknown) (unknown) (1) Restrictive (units (unknown) date) lung disease: unknown) (unknown) (no (unknown) (unknown) (2) Morbid (units (unk nown) date) obesity: unknown) (unknown) (no (unknown) (unknown) (3) Essential (units ( unknown) date) hypertension: unknown) (unknown) (no (unknown) (unknown) (4) Type 2 (units (unk nown) date) diabetes mellitus unknown) with hyperglycemia, with long-term current use of (unknown) (no (unknown) (unknown) (5) Carpal tunnel (units (unknown) date) syndrome, unknown) bilateral: (unknown) (no (unknown) (unknown) (Cortisporin-TC) 3 (units (unknown) date) drop EAR-LEFT TID unknown) #10 ml 03/15/20 [Rx Confirmed 11/01/21] (unknown) (no (unknown) (unknown) [id number] (units (unkno wn) date) unknown) (unknown) (no (unknown) (unknown) 10/26/21 [Rx (units (u nknown) date) Confirmed 11/01/21] unknown) (unknown) (no (unknown) (unknown) 11/01/21 (units (unkno wn) date) unknown) (unknown) (no (unknown) (unknown) 11/01/21] (units (unkn own) date) unknown) (unknown) (no (unknown) (unknown) 05/11/21 [History (units (unknown) date) Confirmed 11/01/21] unknown) (unknown) (no (unknown) (unknown) Again I do not (units (unknown) date) think there is unknown) anything really reversible here for him with his (unknown) (no (unknown) (unknown) Age/Sex: 60 / M (units (unknown) date) Date of Service: unknown) (unknown) (no (unknown) (unknown) Allergies (units (unkn own) date) unknown) (unknown) (no (unknown) (unknown) Also still looking (units (unknown) date) to see someone for unknown) his bilateral carpal tunnel which was (unknown) (no (unknown) (unknown) Assessment + Plan (units (unknown) date) unknown) (unknown) (no (unknown) (unknown) Attending Dr: Jeremiah (units (unknown) date) Shantell Leal MD unknown) (unknown) (no (unknown) (unknown) BMI 51.7 (units (un known) date) unknown) (unknown) (no (unknown) (unknown) BP 130/68 (units (u nknown) date) unknown) (unknown) (no (unknown) (unknown) BPH w urinary (units ( unknown) date) obs/LUTS unknown) (unknown) (no (unknown) (unknown) Blood Pressure (units (unknown) date) Location Lt unknown) brachial (unknown) (no (unknown) (unknown) CA (units (unkno wn) date) PANTOTHENATE/FOLIC unknown) ACID/VIT (MULTIVITAMIN) 1 tab PO Q DAY #0 03/21/11 (unknown) (no (unknown) (unknown) Carpal tunnel (units ( unknown) date) syndrome unknown) (unknown) (no (unknown) (unknown) Chief Complaint: (units (unknown) date) Follow-up unknown) (unknown) (no (unknown) (unknown) Confirmed (units (unkn own) date) 11/01/21] unknown) (unknown) (no (unknown) (unknown) : 1960 (units (unknown) date) Acct:[id number] unknown) (unknown) (no (unknown) (unknown) Dept at (units (unkno wn) date) . unknown) (unknown) (no (unknown) (unknown) Diabetic (units (unkno wn) date) polyneuropathy unknown) associated with type 2 diabetes mellitus (05/27/15) (unknown) (no (unknown) (unknown) Disabled Parking (units (unknown) date) #1 each 06/26/19 unknown) [Rx Confirmed 11/01/21] (unknown) (no (unknown) (unknown) Documented By: (units (unknown) date) Jeremiah Leal MD unknown) 11/01/21 1444 (unknown) (no (unknown) (unknown) Erectile (units (unkno wn) date) dysfunction unknown) (unknown) (no (unknown) (unknown) Essential (units (unkn own) date) hypertension unknown) (03/21/11) (unknown) (no (unknown) (unknown) Family History (units (unknown) date) (Reviewed 10/18/21 unknown) @ 14:19 by Margaret Pires MD) (unknown) (no (unknown) (unknown) Gastroesophageal (units (unknown) date) reflux disease with unknown) esophagitis (05/15/16) (unknown) (no (unknown) (unknown) Get him in to see (units (unknown) date) Dr. Mayer unknown) regarding his carpal tunnel syndrome (unknown) (no (unknown) (unknown) Glucose: Home (units ( unknown) date) Monitor dev #1 unknown) 04/03/16 [Rx Confirmed 11/01/21] (unknown) (no (unknown) (unknown) Glucose: Test (units ( unknown) date) Strips #100 ea unknown) 01/06/21 [Rx Confirmed 11/01/21] (unknown) (no (unknown) (unknown) He persists with (units (unknown) date) dyspnea with unknown) exertion it is variable some days will be better (unknown) (no (unknown) (unknown) Height 6 ft (units (unknown) date) unknown) (unknown) (no (unknown) (unknown) History of knee (units (unknown) date) replacement unknown) (unknown) (no (unknown) (unknown) History of (units (unk nown) date) nephrolithiasis unknown) (unknown) (no (unknown) (unknown) I am going to send (units (unknown) date) him to see unknown) Pulmonary Medicine to see if we can find something (unknown) (no (unknown) (unknown) INTRANASAL BEDTIME (units (unknown) date) PRN ml 05/11/21 unknown) [History Confirmed 11/01/21] (unknown) (no (unknown) (unknown) 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 (03/21/11) (unknown) (no (unknown) (unknown) Insulin) 78 unit (units (unknown) date) SUBCUT BID ml unknown) 07/19/21 [History Confirmed 11/01/21] (unknown) (no (unknown) (unknown) Intake (units (unkno wn) date) unknown) (unknown) (no (unknown) (unknown) Intake Note: (units (u nknown) date) unknown) (unknown) (no (unknown) (unknown) Lancets dev (units (un known) date) INTRADERMAL BID unknown) #200 12/01/16 [Rx Confirmed 11/01/21] (unknown) (no (unknown) (unknown) Left-sided low (units (unknown) date) back pain with unknown) left-sided sciatica (04/27/15) (unknown) (no (unknown) (unknown) Loc: [facility] (units (unkno wn) date) unknown) (unknown) (no (unknown) (unknown) Lower urinary (units ( unknown) date) tract symptoms unknown) (LUTS) (unknown) (no (unknown) (unknown) Medical History (units (unknown) date) (Reviewed 10/18/21 unknown) @ 14:19 by Margaret Pires MD) (unknown) (no (unknown) (unknown) Medications (units (un known) date) unknown) (unknown) (no (unknown) (unknown) Mixed (units (unkno wn) date) hyperlipidemia unknown) (03/21/11) (unknown) (no (unknown) (unknown) Morbid obesity (units (unknown) date) unknown) (unknown) (no (unknown) (unknown) No other changes (units (unknown) date) made today. Weight unknown) today is stable anyway (unknown) (no (unknown) (unknown) Note (units (unkno wn) date) unknown) (unknown) (no (unknown) (unknown) Note: (units (unkno wn) date) unknown) (unknown) (no (unknown) (unknown) Notes (units (unkno wn) date) unknown) (unknown) (no (unknown) (unknown) Obstructive sleep (units (unknown) date) apnea syndrome unknown) (03/21/11) (unknown) (no (unknown) (unknown) Oxygen Delivery (units (unknown) date) Method room air unknown) (unknown) (no (unknown) (unknown) PFSH (units (unkno wn) date) unknown) (unknown) (no (unknown) (unknown) Patient is here in (units (unknown) date) followup unknown) (unknown) (no (unknown) (unknown) Patient: (units (unkno wn) date) Shine Fischer unknown) MR#: [id number] (unknown) (no (unknown) (unknown) Peripheral edema (units (unknown) date) (05/27/15) unknown) (unknown) (no (unknown) (unknown) Plan (units (unkno wn) date) unknown) (unknown) (no (unknown) (unknown) Position (units (unkno wn) date) Sitting unknown) (unknown) (no (unknown) (unknown) Power Lift Chair (units (unknown) date) #1 ea 12/03/20 [Rx unknown) Confirmed 11/01/21] (unknown) (no (unknown) (unknown) Primary (units (unkno wn) date) osteoarthritis unknown) involving multiple joints (11/11/13) (unknown) (no (unknown) (unknown) Primary (units (unkno wn) date) osteoarthritis of unknown) both knees (02/26/17) (unknown) (no (unknown) (unknown) Prostate cancer (units (unknown) date) unknown) (unknown) (no (unknown) (unknown) Prostatic ductal (units (unknown) date) adenocarcinoma unknown) (unknown) (no (unknown) (unknown) Pulse 103 H (units (unknown) date) unknown) (unknown) (no (unknown) (unknown) Pulse Oximetry (%) (units (unknown) date) 97 unknown) (unknown) (no (unknown) (unknown) Pulse Source (units (u nknown) date) Monitor unknown) (unknown) (no (unknown) (unknown) Reason For Visit (units (unknown) date) unknown) (unknown) (no (unknown) (unknown) Restrictive lung (units (unknown) date) disease unknown) (unknown) (no (unknown) (unknown) See Rx (units (unkno wn) date) Instructions SUBCUT unknown) TID 06/04/20 [History Confirmed 11/01/21] (unknown) (no (unknown) (unknown) See him back in a (units (unknown) date) month or so sooner unknown) as needed. (unknown) (no (unknown) (unknown) Signed By: (units (unk nown) date) <Electronically unknown) signed by Jeremiah Leal MD> (unknown) (no (unknown) (unknown) Smoking Status: (units (unknown) date) Former smoker unknown) (unknown) (no (unknown) (unknown) Sock Aid #2 ea (units (unknown) date) 02/11/21 [Rx unknown) Confirmed 11/01/21] (unknown) (no (unknown) (unknown) Status post (units (un known) date) tonsillectomy and unknown) adenoidectomy (unknown) (no (unknown) (unknown) Surgical History (units (unknown) date) (Reviewed 10/18/21 unknown) @ 14:19 by Margaret Pires MD) (unknown) (no (unknown) (unknown) TIA (transient (units (unknown) date) ischemic attack) unknown) (unknown) (no (unknown) (unknown) This note may have (units (unknown) date) been all or unknown) partially generated using voice recognition (unknown) (no (unknown) (unknown) Tobacco + (units (unkn own) date) Substance Use unknown) (unknown) (no (unknown) (unknown) Tobacco Status (units (unknown) date) unknown) (unknown) (no (unknown) (unknown) Type 2 diabetes (units (unknown) date) mellitus with unknown) hyperglycemia, with long-term current use of (unknown) (no (unknown) (unknown) Type 2 diabetes (units (unknown) date) mellitus with unknown) hypoglycemia without coma (04/27/15) (unknown) (no (unknown) (unknown) Unknown Family (units (unknown) date) history of breast unknown) cancer (unknown) (no (unknown) (unknown) Venous (units (unkno wn) date) insufficiency unknown) (unknown) (no (unknown) (unknown) Venous stasis (units ( unknown) date) unknown) (unknown) (no (unknown) (unknown) Visit Reasons: (units (unknown) date) Follow Up unknown) Meds/Weight/DM (unknown) (no (unknown) (unknown) Vitals (units (unkno wn) date) unknown) (unknown) (no (unknown) (unknown) Vitamin D (units (unkn own) date) deficiency unknown) (unknown) (no (unknown) (unknown) Weight 172.932 (units (unknown) date) kg unknown) (unknown) (no (unknown) (unknown) [History Confirmed (units (unknown) date) 11/01/21] unknown) (unknown) (no (unknown) (unknown) [Rx Confirmed (units ( unknown) date) 11/01/21] unknown) (unknown) (no (unknown) (unknown) acetaminophen (units ( unknown) date) [From Percocet] unknown) Allergy (Verified 11/01/21 14:46) (unknown) (no (unknown) (unknown) allopurinol 100 mg (units (unknown) date) tablet 100 mg PO unknown) DAILY #90 tab 09/12/21 [Rx Confirmed (unknown) (no (unknown) (unknown) anyway wants a (units (unknown) date) good bit better unknown) than other days (unknown) (no (unknown) (unknown) atorvastatin 40 mg (units (unknown) date) tablet 40 mg PO unknown) BEDTIME #90 tab 09/12/21 [Rx Confirmed (unknown) (no (unknown) (unknown) bicalutamide 50 mg (units (unknown) date) tablet (Casodex) 50 unknown) mg PO DAILY #30 tab 02/11/21 [Rx (unknown) (no (unknown) (unknown) clobetasol 0.05 % (units (unknown) date) topical cream unknown) (Temovate) 0.05 % TOPICAL PRN #60 gm 12/30/19 (unknown) (no (unknown) (unknown) cyclobenzaprine 10 (units (unknown) date) mg tablet 10 mg PO unknown) TIDP PRN #90 tab 12/30/19 [Rx Confirmed (unknown) (no (unknown) (unknown) diagnosed with EMG (units (unknown) date) some months ago. unknown) Looks like we failed to get a referral in (unknown) (no (unknown) (unknown) dulaglutide 1.5 (units (unknown) date) mg/0.5 mL unknown) subcutaneous pen injector 3 mg SUBCUT QWEEK ml (unknown) (no (unknown) (unknown) f/u DM (units (unkno wn) date) unknown) (unknown) (no (unknown) (unknown) f/u meds (units (unkno wn) date) unknown) (unknown) (no (unknown) (unknown) f/u wt- (units (unkno wn) date) unknown) (unknown) (no (unknown) (unknown) famotidine 40 mg (units (unknown) date) tablet 40 mg PO unknown) DAILY #90 tab 12/24/20 [Rx Confirmed 11/01/21] (unknown) (no (unknown) (unknown) fluticasone (units (un known) date) propionate 50 unknown) mcg/actuation nasal spray,suspension 2 spray (unknown) (no (unknown) (unknown) furosemide 40 mg (units (unknown) date) tablet 80 mg PO unknown) DAILY #180 tab 12/02/20 [Rx Confirmed 11/01/21] (unknown) (no (unknown) (unknown) gabapentin 600 mg (units (unknown) date) tablet 1,200 mg PO unknown) TID #360 tab 12/30/19 [Rx Confirmed (unknown) (no (unknown) (unknown) have occurred. If (units (unknown) date) there are any unknown) questions, please contact the Medical Records (unknown) (no (unknown) (unknown) having trouble (units (unknown) date) breathing - sob, unknown) wheezing (unknown) (no (unknown) (unknown) hydrocodone 10 (units (unknown) date) mg-acetaminophen unknown) 325 mg tablet 1 - 2 tab PO Q4H PRN #180 tab (unknown) (no (unknown) (unknown) insulin (units (unkno wn) date) unknown) (unknown) (no (unknown) (unknown) insulin glargine (units (unknown) date) 100 unit/mL (3 mL) unknown) subcutaneous pen (Lantus Solostar U-100 (unknown) (no (unknown) (unknown) insulin lispro 100 (units (unknown) date) unit/mL unknown) subcutaneous pen (Humalog KwikPen (U-100) Insulin) (unknown) (no (unknown) (unknown) insulin: (units (unkno wn) date) unknown) (unknown) (no (unknown) (unknown) latex gloves #500 (units (unknown) date) each 10/24/19 [Rx unknown) Confirmed 11/01/21] (unknown) (no (unknown) (unknown) lorazepam 1 mg (units ( unknown) date) tablet 1 mg PO unknown) DAILY PRN #20 tab 04/18/21 [Rx Confirmed 11/01/21] (unknown) (no (unknown) (unknown) losartan 100 mg (units (unknown) date) tablet 100 mg PO unknown) QDAY #90 tab 02/10/21 [Rx Confirmed 11/01/21] (unknown) (no (unknown) (unknown) may occur. (units (unk nown) date) Occasional unknown) wrong-word or 'sound-alike' substitutions may have (unknown) (no (unknown) (unknown) metformin 1,000 mg (units (unknown) date) tablet 1,000 mg PO unknown) BID 03/15/20 [History Confirmed 11/01/21] (unknown) (no (unknown) (unknown) metolazone 2.5 mg (units (unknown) date) tablet 2.5 mg PO Q unknown) OTHER DAY #16 tab 04/18/21 [Rx Confirmed (unknown) (no (unknown) (unknown) [id number] (units (unknown) date) -thonzonm 3.3 mg-3 unknown) mg-10 mg-0.5 mg/mL ear drops,susp (unknown) (no (unknown) (unknown) occurred due to (units (unknown) date) the inherent unknown) limitations of voice recognition software. Please (unknown) (no (unknown) (unknown) omeprazole 20 mg (units (unknown) date) capsule,delayed unknown) release 20 mg PO BID #180 cap 04/18/21 [Rx (unknown) (no (unknown) (unknown) oxycodone (units (unkn own) date) [OXYCODONE] Allergy unknown) (Severe, Verified 11/01/21 14:46) (unknown) (no (unknown) (unknown) potassium chloride (units (unknown) date) 20 mEq unknown) tablet,extended release(part/cryst) 40 meq PO QDAY (unknown) (no (unknown) (unknown) primidone 50 mg (units (unknown) date) tablet 50 - 100 mg unknown) PO BID tab 05/11/21 [History Confirmed (unknown) (no (unknown) (unknown) process and I can (units (unknown) date) not quite figure unknown) that out (unknown) (no (unknown) (unknown) read the note (units ( unknown) date) carefully and unknown) recognize, using context, where these substitutions (unknown) (no (unknown) (unknown) respiratory (units (un known) date) issues. PFT showed unknown) some mild restriction echo was pretty (unknown) (no (unknown) (unknown) restrictive lung (units (unknown) date) disease may be some unknown) pulmonary hypertension (unknown) (no (unknown) (unknown) software. Although (units (unknown) date) every effort is unknown) made to edit content, technical manager errors (unknown) (no (unknown) (unknown) sucralfate 1 gram (units (unknown) date) tablet 1 g PO ACHS unknown) #360 tab 09/12/21 [Rx Confirmed 11/01/21] (unknown) (no (unknown) (unknown) tramadol 50 mg (units (unknown) date) tablet 50 mg PO TID unknown) PRN #90 tab 10/18/21 [Rx Confirmed 11/01/21] (unknown) (no (unknown) (unknown) trazodone 50 mg (units (unknown) date) tablet 50 mg PO unknown) BEDTIME #90 tab 09/12/21 [Rx Confirmed 11/01/21] (unknown) (no (unknown) (unknown) treatable (units (unkn own) date) reversible with unknown) this (unknown) (no (unknown) (unknown) unremarkable if (units (unknown) date) anything it is unknown) related to his size is obesity with an element of Result panel 3 (unknown) (no (unknown) (unknown) (no value) (units (unk nown) date) unknown) (unknown) (no (unknown) (unknown) (no value) (units (unk nown) date) unknown) (unknown) (no (unknown) (unknown) ANAPHYLAXIS/PERCOC (units (unknown) date) ET. No Tylenol unknown) allergy (unknown) (no (unknown) (unknown) [place] (units ( unknown) date) [id number] unknown) (unknown) (no (unknown) (unknown) Draft (units (unkno wn) date) unknown) (unknown) (no (unknown) (unknown) Family history of (units (unknown) date) type 2 diabetes unknown) mellitus (unknown) (no (unknown) (unknown) [facility] ([facility]) (unknown) (no (unknown) (unknown) Internal Medicine (units (unknown) date) Office Visit unknown) (unknown) (no (unknown) (unknown) (no value) (units (unk nown) date) unknown) (unknown) (no (unknown) (unknown) #180 tabs 04/18/21 (units (unknown) date) [Rx Confirmed unknown) 12/27/21] (unknown) (no (unknown) (unknown) (Cortisporin-TC) 3 (units (unknown) date) drop EAR-LEFT TID unknown) #10 mL 03/15/20 [Rx Confirmed 12/27/21] (unknown) (no (unknown) (unknown) [id number] (units (unkno wn) date) unknown) (unknown) (no (unknown) (unknown) 12/27/21 (units (unkno wn) date) unknown) (unknown) (no (unknown) (unknown) 12/27/21] (units (unkn own) date) unknown) (unknown) (no (unknown) (unknown) Age/Sex: 61 / M (units (unknown) date) Date of Service: unknown) (unknown) (no (unknown) (unknown) Allergies (units (unkn own) date) unknown) (unknown) (no (unknown) (unknown) Attending Dr: Jeremiah (units (unknown) date) Shantell Leal MD unknown) (unknown) (no (unknown) (unknown) BPH w urinary (units ( unknown) date) obs/LUTS unknown) (unknown) (no (unknown) (unknown) CA (units (unkno wn) date) PANTOTHENATE/FOLIC unknown) ACID/VIT (MULTIVITAMIN) 1 tab PO Q DAY ##0 03/21/11 (unknown) (no (unknown) (unknown) Carpal tunnel (units ( unknown) date) syndrome unknown) (unknown) (no (unknown) (unknown) Confirmed (units (unkn own) date) 12/27/21] unknown) (unknown) (no (unknown) (unknown) : 1960 (units (unknown) date) Acct:[id number] unknown) (unknown) (no (unknown) (unknown) Dept at (units (unkno wn) date) . unknown) (unknown) (no (unknown) (unknown) Diabetic (units (unkno wn) date) polyneuropathy unknown) associated with type 2 diabetes mellitus (05/27/15) (unknown) (no (unknown) (unknown) Disabled Parking (units (unknown) date) #1 ea 06/26/19 [Rx unknown) Confirmed 12/27/21] (unknown) (no (unknown) (unknown) Documented By: (units (unknown) date) Jeremiah Leal MD unknown) 12/27/21 1458 (unknown) (no (unknown) (unknown) Erectile (units (unkno wn) date) dysfunction unknown) (unknown) (no (unknown) (unknown) Essential (units (unkn own) date) hypertension unknown) (03/21/11) (unknown) (no (unknown) (unknown) Family History (units (unknown) date) (Reviewed 10/18/21 unknown) @ 14:19 by Margaret Pires MD) (unknown) (no (unknown) (unknown) Gastroesophageal (units (unknown) date) reflux disease with unknown) esophagitis (05/15/16) (unknown) (no (unknown) (unknown) Glucose: Home (units ( unknown) date) Monitor dev ##1 unknown) 04/03/16 [Rx Confirmed 12/27/21] (unknown) (no (unknown) (unknown) Glucose: Test (units ( unknown) date) Strips #100 ea unknown) 01/06/21 [Rx Confirmed 12/27/21] (unknown) (no (unknown) (unknown) History of knee (units (unknown) date) replacement unknown) (unknown) (no (unknown) (unknown) History of (units (unk nown) date) nephrolithiasis unknown) (unknown) (no (unknown) (unknown) 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 (03/21/11) (unknown) (no (unknown) (unknown) Instructions (units (u nknown) date) .Route .COMPLEX #16 unknown) grams 11/18/21 [Rx Confirmed 12/27/21] (unknown) (no (unknown) (unknown) Insulin) 78 unit (units (unknown) date) SUBCUT BID 07/19/21 unknown) [History Confirmed 12/27/21] (unknown) (no (unknown) (unknown) Intake (units (unkno wn) date) unknown) (unknown) (no (unknown) (unknown) Intake Note: (units (u nknown) date) unknown) (unknown) (no (unknown) (unknown) Intake performed (units (unknown) date) by: Maria L Wallis unknown) (unknown) (no (unknown) (unknown) Intake- Clincial (units (unknown) date) Staff unknown) (unknown) (no (unknown) (unknown) Lancets dev (units (un known) date) intradermal BID unknown) ##200 12/01/16 [Rx Confirmed 12/27/21] (unknown) (no (unknown) (unknown) Left-sided low (units (unknown) date) back pain with unknown) left-sided sciatica (04/27/15) (unknown) (no (unknown) (unknown) Loc: [facility] (units (unkno wn) date) unknown) (unknown) (no (unknown) (unknown) Lower urinary (units ( unknown) date) tract symptoms unknown) (LUTS) (unknown) (no (unknown) (unknown) Medical History (units (unknown) date) (Reviewed 10/18/21 unknown) @ 14:19 by Margaret Pires MD) (unknown) (no (unknown) (unknown) Medications (units (un known) date) unknown) (unknown) (no (unknown) (unknown) Mixed (units (unkno wn) date) hyperlipidemia unknown) (03/21/11) (unknown) (no (unknown) (unknown) Morbid obesity (units (unknown) date) unknown) (unknown) (no (unknown) (unknown) Obstructive sleep (units (unknown) date) apnea syndrome unknown) (03/21/11) (unknown) (no (unknown) (unknown) PFSH (units (unkno wn) date) unknown) (unknown) (no (unknown) (unknown) Patient: (units (unkno wn) date) Shine Fischer unknown) MR#: [id number] (unknown) (no (unknown) (unknown) Peripheral edema (units (unknown) date) (05/27/15) unknown) (unknown) (no (unknown) (unknown) Power Lift Chair (units (unknown) date) #1 ea 12/03/20 [Rx unknown) Confirmed 12/27/21] (unknown) (no (unknown) (unknown) Primary (units (unkno wn) date) osteoarthritis unknown) involving multiple joints (11/11/13) (unknown) (no (unknown) (unknown) Primary (units (unkno wn) date) osteoarthritis of unknown) both knees (02/26/17) (unknown) (no (unknown) (unknown) Prostate cancer (units (unknown) date) unknown) (unknown) (no (unknown) (unknown) Prostatic ductal (units (unknown) date) adenocarcinoma unknown) (unknown) (no (unknown) (unknown) Reason For Visit (units (unknown) date) unknown) (unknown) (no (unknown) (unknown) Recheck Meds (units (u nknown) date) unknown) (unknown) (no (unknown) (unknown) Restrictive lung (units (unknown) date) disease unknown) (unknown) (no (unknown) (unknown) Review/Discuss. (units (unknown) date) unknown) (unknown) (no (unknown) (unknown) See Rx (units (unkno wn) date) Instructions SUBCUT unknown) TID 06/04/20 [History Confirmed 12/27/21] (unknown) (no (unknown) (unknown) Signed By: (units (unk nown) date) unknown) (unknown) (no (unknown) (unknown) Smoking Status: (units (unknown) date) Former smoker unknown) (unknown) (no (unknown) (unknown) Sock Aid #2 ea (units (unknown) date) 02/11/21 [Rx unknown) Confirmed 12/27/21] (unknown) (no (unknown) (unknown) Status post (units (un known) date) tonsillectomy and unknown) adenoidectomy (unknown) (no (unknown) (unknown) Surgical History (units (unknown) date) (Reviewed 10/18/21 unknown) @ 14:19 by Margaret Pires MD) (unknown) (no (unknown) (unknown) TIA (transient (units (unknown) date) ischemic attack) unknown) (unknown) (no (unknown) (unknown) This note may have (units (unknown) date) been all or unknown) partially generated using voice recognition (unknown) (no (unknown) (unknown) Tobacco + (units (unkn own) date) Substance Use unknown) (unknown) (no (unknown) (unknown) Tobacco Status (units (unknown) date) unknown) (unknown) (no (unknown) (unknown) Type 2 diabetes (units (unknown) date) mellitus with unknown) hyperglycemia, with long-term current use of (unknown) (no (unknown) (unknown) Type 2 diabetes (units (unknown) date) mellitus with unknown) hypoglycemia without coma (04/27/15) (unknown) (no (unknown) (unknown) Unknown Family (units (unknown) date) history of breast unknown) cancer (unknown) (no (unknown) (unknown) Venous (units (unkno wn) date) insufficiency unknown) (unknown) (no (unknown) (unknown) Venous stasis (units ( unknown) date) unknown) (unknown) (no (unknown) (unknown) Visit Reasons: (units (unknown) date) Recheck Meds unknown) (unknown) (no (unknown) (unknown) Vitamin D (units (unkn own) date) deficiency unknown) (unknown) (no (unknown) (unknown) [History Confirmed (units (unknown) date) 12/27/21] unknown) (unknown) (no (unknown) (unknown) [Rx Confirmed (units ( unknown) date) 12/27/21] unknown) (unknown) (no (unknown) (unknown) acetaminophen (units ( unknown) date) [From Percocet] unknown) Allergy (Verified 12/27/21 14:58) (unknown) (no (unknown) (unknown) allopurinol 100 mg (units (unknown) date) tablet 100 mg PO unknown) DAILY #90 tabs 09/12/21 [Rx Confirmed (unknown) (no (unknown) (unknown) atorvastatin 40 mg (units (unknown) date) tablet 40 mg PO unknown) BEDTIME #90 tabs 09/12/21 [Rx Confirmed (unknown) (no (unknown) (unknown) bicalutamide 50 mg (units (unknown) date) tablet (Casodex) 50 unknown) mg PO DAILY #30 tabs 02/11/21 [Rx (unknown) (no (unknown) (unknown) clobetasol 0.05 % (units (unknown) date) topical cream unknown) (Temovate) 0.05 % topical PRN ##60 12/30/19 [Rx (unknown) (no (unknown) (unknown) cyclobenzaprine 10 (units (unknown) date) mg tablet 10 mg PO unknown) TIDP PRN muscle spasm #90 tabs 12/30/19 (unknown) (no (unknown) (unknown) dulaglutide 3 (units (u nknown) date) mg/0.5 mL unknown) subcutaneous pen injector (Trulicity) ml SUBCUT 12/27/21 (unknown) (no (unknown) (unknown) famotidine 40 mg (units (unknown) date) tablet 40 mg PO unknown) DAILY #90 tabs 12/24/20 [Rx Confirmed 12/27/21] (unknown) (no (unknown) (unknown) fluticasone (units (un known) date) propionate 50 unknown) mcg/actuation nasal spray,suspension See Rx (unknown) (no (unknown) (unknown) furosemide 40 mg (units (unknown) date) tablet 80 mg PO unknown) DAILY #180 tabs 12/09/21 [Rx Confirmed (unknown) (no (unknown) (unknown) gabapentin 600 mg (units (unknown) date) tablet 1,200 mg PO unknown) TID #360 tabs 12/30/19 [Rx Confirmed (unknown) (no (unknown) (unknown) have occurred. If (units (unknown) date) there are any unknown) questions, please contact the Medical Records (unknown) (no (unknown) (unknown) hydrocodone 10 (units (unknown) date) mg-acetaminophen unknown) 325 mg tablet 1 - 2 tab PO Q4H PRN pain #180 (unknown) (no (unknown) (unknown) insulin (units (unkno wn) date) unknown) (unknown) (no (unknown) (unknown) insulin glargine (units (unknown) date) 100 unit/mL (3 mL) unknown) subcutaneous pen (Lantus Solostar U-100 (unknown) (no (unknown) (unknown) insulin lispro 100 (units (unknown) date) unit/mL unknown) subcutaneous pen (Humalog KwikPen (U-100) Insulin) (unknown) (no (unknown) (unknown) latex gloves #500 (units (unknown) date) ea 10/24/19 [Rx unknown) Confirmed 12/27/21] (unknown) (no (unknown) (unknown) lorazepam 1 mg (units (unknown) date) tablet 1 mg PO unknown) DAILY PRN seizure like activity #20 tabs 12/15/21 (unknown) (no (unknown) (unknown) losartan 100 mg (units (unknown) date) tablet 100 mg PO unknown) QDAY #90 tabs 02/10/21 [Rx Confirmed 12/27/21] (unknown) (no (unknown) (unknown) may occur. (units (unk nown) date) Occasional unknown) wrong-word or 'sound-alike' substitutions may have (unknown) (no (unknown) (unknown) metformin 1,000 mg (units (unknown) date) tablet 1,000 mg PO unknown) BID 03/15/20 [History Confirmed 12/27/21] (unknown) (no (unknown) (unknown) metolazone 2.5 mg (units (unknown) date) tablet 2.5 mg PO Q unknown) OTHER DAY #16 tabs 12/09/21 [Rx Confirmed (unknown) (no (unknown) (unknown) [id number] (units (unknown) date) -thonzonm 3.3 mg-3 unknown) mg-10 mg-0.5 mg/mL ear drops,susp (unknown) (no (unknown) (unknown) occurred due to (units (unknown) date) the inherent unknown) limitations of voice recognition software. Please (unknown) (no (unknown) (unknown) omeprazole 20 mg (units (unknown) date) capsule,delayed unknown) release 20 mg PO BID #180 caps 12/09/21 [Rx (unknown) (no (unknown) (unknown) oxycodone (units (unkn own) date) [OXYCODONE] Allergy unknown) (Severe, Verified 12/27/21 14:58) (unknown) (no (unknown) (unknown) potassium chloride (units (unknown) date) 20 mEq unknown) tablet,extended release(part/cryst) 40 meq PO QDAY (unknown) (no (unknown) (unknown) primidone 50 mg (units (unknown) date) tablet 50 - 100 mg unknown) PO BID 05/11/21 [History Confirmed 12/27/21] (unknown) (no (unknown) (unknown) read the note (units ( unknown) date) carefully and unknown) recognize, using context, where these substitutions (unknown) (no (unknown) (unknown) software. Although (units (unknown) date) every effort is unknown) made to edit content, technical manager errors (unknown) (no (unknown) (unknown) sucralfate 1 gram (units (unknown) date) tablet 1 g PO ACHS unknown) #360 tabs 09/12/21 [Rx Confirmed 12/27/21] (unknown) (no (unknown) (unknown) tabs 12/20/21 [Rx (units (unknown) date) Confirmed 12/27/21] unknown) (unknown) (no (unknown) (unknown) tramadol 50 mg (units (unknown) date) tablet 50 mg PO TID unknown) PRN pain #90 tabs 11/24/21 [Rx Confirmed (unknown) (no (unknown) (unknown) trazodone 50 mg (units (unknown) date) tablet 50 mg PO unknown) BEDTIME #90 tabs 09/12/21 [Rx Confirmed Result panel 4 (unknown) (no (unknown) (unknown) (no value) (units (unk nown) date) unknown) (unknown) (no (unknown) (unknown) (no value) (units (unk nown) date) unknown) (unknown) (no (unknown) (unknown) (no value) (units (unk nown) date) unknown) (unknown) (no (unknown) (unknown) 12/27/21 (units (unkno wn) date) unknown) (unknown) (no (unknown) (unknown) 15:06 (units (unkno wn) date) unknown) (unknown) (no (unknown) (unknown) ANAPHYLAXIS/PERCOC (units (unknown) date) ET. No Tylenol unknown) allergy (unknown) (no (unknown) (unknown) [place] (units ( unknown) date) [id number] unknown) (unknown) (no (unknown) (unknown) Draft (units (unkno wn) date) unknown) (unknown) (no (unknown) (unknown) Family history of (units (unknown) date) type 2 diabetes unknown) mellitus (unknown) (no (unknown) (unknown) [facility] (units ([facility] date[facility] unknown) (unknown) (no (unknown) (unknown) Internal Medicine (units (unknown) date) Office Visit unknown) (unknown) (no (unknown) (unknown) (no value) (units (unk nown) date) unknown) (unknown) (no (unknown) (unknown) (Cortisporin-TC) 3 (units (unknown) date) drop EAR-LEFT TID unknown) #10 mL 03/15/20 [Rx Confirmed 12/27/21] (unknown) (no (unknown) (unknown) [id number] (units (unkno wn) date) unknown) (unknown) (no (unknown) (unknown) 12/27/21 (units (unkno wn) date) unknown) (unknown) (no (unknown) (unknown) 12/27/21 [History (units (unknown) date) Confirmed 12/27/21] unknown) (unknown) (no (unknown) (unknown) 12/27/21 [History] (units (unknown) date) unknown) (unknown) (no (unknown) (unknown) 12/27/21] (units (unkn own) date) unknown) (unknown) (no (unknown) (unknown) Age/Sex: 61 / M (units (unknown) date) Date of Service: unknown) (unknown) (no (unknown) (unknown) Allergies (units (unkn own) date) unknown) (unknown) (no (unknown) (unknown) Attending Dr: Jeremiah (units (unknown) date) Shantell Leal MD unknown) (unknown) (no (unknown) (unknown) BMI 51.6 (units (un known) date) unknown) (unknown) (no (unknown) (unknown) BP 124/82 (units (u nknown) date) unknown) (unknown) (no (unknown) (unknown) BPH w urinary (units ( unknown) date) obs/LUTS unknown) (unknown) (no (unknown) (unknown) Blood Pressure (units (unknown) date) Location Lt unknown) brachial (unknown) (no (unknown) (unknown) CA (units (unkno wn) date) PANTOTHENATE/FOLIC unknown) ACID/VIT (MULTIVITAMIN) 1 tab PO Q DAY ##0 03/21/11 (unknown) (no (unknown) (unknown) Carpal tunnel (units ( unknown) date) syndrome unknown) (unknown) (no (unknown) (unknown) Confirmed (units (unkn own) date) 12/27/21] unknown) (unknown) (no (unknown) (unknown) : 1960 (units (unknown) date) Acct:[id number] unknown) (unknown) (no (unknown) (unknown) Dept at (units (unkno wn) date) . unknown) (unknown) (no (unknown) (unknown) Diabetic (units (unkno wn) date) polyneuropathy unknown) associated with type 2 diabetes mellitus (05/27/15) (unknown) (no (unknown) (unknown) Disabled Parking (units (unknown) date) #1 ea 06/26/19 [Rx unknown) Confirmed 12/27/21] (unknown) (no (unknown) (unknown) Discuss Knees (units ( unknown) date) unknown) (unknown) (no (unknown) (unknown) Documented By: (units (unknown) date) Jeremiah Leal MD unknown) 12/27/21 1458 (unknown) (no (unknown) (unknown) Erectile (units (unkno wn) date) dysfunction unknown) (unknown) (no (unknown) (unknown) Essential (units (unkn own) date) hypertension unknown) (03/21/11) (unknown) (no (unknown) (unknown) Family History (units (unknown) date) (Reviewed 10/18/21 unknown) @ 14:19 by Margaret Pires MD) (unknown) (no (unknown) (unknown) Gastroesophageal (units (unknown) date) reflux disease with unknown) esophagitis (05/15/16) (unknown) (no (unknown) (unknown) Glucose: Home (units ( unknown) date) Monitor dev ##1 unknown) 04/03/16 [Rx Confirmed 12/27/21] (unknown) (no (unknown) (unknown) Glucose: Test (units ( unknown) date) Strips #100 ea unknown) 01/06/21 [Rx Confirmed 12/27/21] (unknown) (no (unknown) (unknown) Height 6 ft (units (unknown) date) unknown) (unknown) (no (unknown) (unknown) History of knee (units (unknown) date) replacement unknown) (unknown) (no (unknown) (unknown) History of (units (unk nown) date) nephrolithiasis unknown) (unknown) (no (unknown) (unknown) 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 (03/21/11) (unknown) (no (unknown) (unknown) Instructions (units (u nknown) date) .Route .COMPLEX #16 unknown) grams 11/18/21 [Rx Confirmed 12/27/21] (unknown) (no (unknown) (unknown) Insulin) 78 unit (units (unknown) date) SUBCUT BID 07/19/21 unknown) [History Confirmed 12/27/21] (unknown) (no (unknown) (unknown) Intake (units (unkno wn) date) unknown) (unknown) (no (unknown) (unknown) Intake Note: (units (u nknown) date) unknown) (unknown) (no (unknown) (unknown) Intake performed (units (unknown) date) by: Maria L Wallis unknown) (unknown) (no (unknown) (unknown) Intake- Clincial (units (unknown) date) Staff unknown) (unknown) (no (unknown) (unknown) Lancets dev (units (un known) date) intradermal BID unknown) ##200 12/01/16 [Rx Confirmed 12/27/21] (unknown) (no (unknown) (unknown) Left-sided low (units (unknown) date) back pain with unknown) left-sided sciatica (04/27/15) (unknown) (no (unknown) (unknown) Loc: [facility] (units (unkno wn) date) unknown) (unknown) (no (unknown) (unknown) Lower urinary (units ( unknown) date) tract symptoms unknown) (LUTS) (unknown) (no (unknown) (unknown) Medical History (units (unknown) date) (Reviewed 10/18/21 unknown) @ 14:19 by Margaret Pires MD) (unknown) (no (unknown) (unknown) Medications (units (un known) date) unknown) (unknown) (no (unknown) (unknown) Mixed (units (unkno wn) date) hyperlipidemia unknown) (03/21/11) (unknown) (no (unknown) (unknown) Morbid obesity (units (unknown) date) unknown) (unknown) (no (unknown) (unknown) Obstructive sleep (units (unknown) date) apnea syndrome unknown) (03/21/11) (unknown) (no (unknown) (unknown) Oxygen Delivery (units (unknown) date) Method room air unknown) (unknown) (no (unknown) (unknown) PFSH (units (unkno wn) date) unknown) (unknown) (no (unknown) (unknown) Patient: (units (unkno wn) date) AmadoShine James unknown) MR#: [id number] (unknown) (no (unknown) (unknown) Peripheral edema (units (unknown) date) (05/27/15) unknown) (unknown) (no (unknown) (unknown) Position (units (unkno wn) date) Sitting unknown) (unknown) (no (unknown) (unknown) Power Lift Chair (units (unknown) date) #1 ea 12/03/20 [Rx unknown) Confirmed 12/27/21] (unknown) (no (unknown) (unknown) Primary (units (unkno wn) date) osteoarthritis unknown) involving multiple joints (11/11/13) (unknown) (no (unknown) (unknown) Primary (units (unkno wn) date) osteoarthritis of unknown) both knees (02/26/17) (unknown) (no (unknown) (unknown) Prostate cancer (units (unknown) date) unknown) (unknown) (no (unknown) (unknown) Prostatic ductal (units (unknown) date) adenocarcinoma unknown) (unknown) (no (unknown) (unknown) Pulse 98 H (units ( unknown) date) unknown) (unknown) (no (unknown) (unknown) Pulse Oximetry (%) (units (unknown) date) 96 unknown) (unknown) (no (unknown) (unknown) Pulse Source (units (u nknown) date) Monitor unknown) (unknown) (no (unknown) (unknown) Reason For Visit (units (unknown) date) unknown) (unknown) (no (unknown) (unknown) Recheck Meds (units (u nknown) date) unknown) (unknown) (no (unknown) (unknown) Refill Tramadol. (units (unknown) date) unknown) (unknown) (no (unknown) (unknown) Restrictive lung (units (unknown) date) disease unknown) (unknown) (no (unknown) (unknown) Review/Discuss. (units (unknown) date) unknown) (unknown) (no (unknown) (unknown) See Rx (units (unkno wn) date) Instructions SUBCUT unknown) TID 06/04/20 [History Confirmed 12/27/21] (unknown) (no (unknown) (unknown) Signed By: (units (unk nown) date) unknown) (unknown) (no (unknown) (unknown) Smoking Status: (units (unknown) date) Former smoker unknown) (unknown) (no (unknown) (unknown) Sock Aid #2 ea (units (unknown) date) 02/11/21 [Rx unknown) Confirmed 12/27/21] (unknown) (no (unknown) (unknown) Status post (units (un known) date) tonsillectomy and unknown) adenoidectomy (unknown) (no (unknown) (unknown) Surgical History (units (unknown) date) (Reviewed 10/18/21 unknown) @ 14:19 by Margaret Pires MD) (unknown) (no (unknown) (unknown) TIA (transient (units (unknown) date) ischemic attack) unknown) (unknown) (no (unknown) (unknown) This note may have (units (unknown) date) been all or unknown) partially generated using voice recognition (unknown) (no (unknown) (unknown) Tobacco + (units (unkn own) date) Substance Use unknown) (unknown) (no (unknown) (unknown) Tobacco Status (units (unknown) date) unknown) (unknown) (no (unknown) (unknown) Type 2 diabetes (units (unknown) date) mellitus with unknown) hyperglycemia, with long-term current use of (unknown) (no (unknown) (unknown) Type 2 diabetes (units (unknown) date) mellitus with unknown) hypoglycemia without coma (04/27/15) (unknown) (no (unknown) (unknown) Unknown Family (units (unknown) date) history of breast unknown) cancer (unknown) (no (unknown) (unknown) Venous (units (unkno wn) date) insufficiency unknown) (unknown) (no (unknown) (unknown) Venous stasis (units ( unknown) date) unknown) (unknown) (no (unknown) (unknown) Visit Reasons: (units (unknown) date) Recheck Meds unknown) (unknown) (no (unknown) (unknown) Vitals (units (unkno wn) date) unknown) (unknown) (no (unknown) (unknown) Vitamin D (units (unkn own) date) deficiency unknown) (unknown) (no (unknown) (unknown) Weight 381 lb (units (unknown) date) unknown) (unknown) (no (unknown) (unknown) [History Confirmed (units (unknown) date) 12/27/21] unknown) (unknown) (no (unknown) (unknown) [Rx Confirmed (units ( unknown) date) 12/27/21] unknown) (unknown) (no (unknown) (unknown) acetaminophen (units ( unknown) date) [From Percocet] unknown) Allergy (Verified 12/27/21 14:58) (unknown) (no (unknown) (unknown) allopurinol 100 mg (units (unknown) date) tablet 100 mg PO unknown) DAILY #90 tabs 09/12/21 [Rx Confirmed (unknown) (no (unknown) (unknown) atorvastatin 40 mg (units (unknown) date) tablet 40 mg PO unknown) BEDTIME #90 tabs 09/12/21 [Rx Confirmed (unknown) (no (unknown) (unknown) bicalutamide 50 mg (units (unknown) date) tablet (Casodex) 50 unknown) mg PO DAILY #30 tabs 02/11/21 [Rx (unknown) (no (unknown) (unknown) clobetasol 0.05 % (units (unknown) date) topical cream unknown) (Temovate) 0.05 % topical PRN ##60 12/30/19 [Rx (unknown) (no (unknown) (unknown) cyclobenzaprine 10 (units (unknown) date) mg tablet 10 mg PO unknown) TIDP PRN muscle spasm #90 tabs 12/30/19 (unknown) (no (unknown) (unknown) dulaglutide 3 (units ( unknown) date) mg/0.5 mL unknown) subcutaneous pen injector (Trulicity) 3 mg SUBCUT QWEEK (unknown) (no (unknown) (unknown) famotidine 40 mg (units (unknown) date) tablet 40 mg PO unknown) DAILY #90 tabs 12/24/20 [Rx Confirmed 12/27/21] (unknown) (no (unknown) (unknown) fluticasone (units (un known) date) propionate 50 unknown) mcg/actuation nasal spray,suspension See Rx (unknown) (no (unknown) (unknown) furosemide 40 mg (units (unknown) date) tablet 80 mg PO unknown) DAILY #180 tabs 12/09/21 [Rx Confirmed (unknown) (no (unknown) (unknown) gabapentin 600 mg (units (unknown) date) tablet 1,200 mg PO unknown) TID #360 tabs 12/30/19 [Rx Confirmed (unknown) (no (unknown) (unknown) have occurred. If (units (unknown) date) there are any unknown) questions, please contact the Medical Records (unknown) (no (unknown) (unknown) hydrocodone 10 (units (unknown) date) mg-acetaminophen unknown) 325 mg tablet 1 - 2 tab PO Q4H PRN pain #180 (unknown) (no (unknown) (unknown) insulin (units (unkno wn) date) unknown) (unknown) (no (unknown) (unknown) insulin glargine (units (unknown) date) 100 unit/mL (3 mL) unknown) subcutaneous pen (Lantus Solostar U-100 (unknown) (no (unknown) (unknown) insulin lispro 100 (units (unknown) date) unit/mL unknown) subcutaneous pen (Humalog KwikPen (U-100) Insulin) (unknown) (no (unknown) (unknown) ketoconazole 2 % (units (unknown) date) shampoo 1 applic unknown) topical Q2W 12/27/21 [History Confirmed (unknown) (no (unknown) (unknown) latex gloves #500 (units (unknown) date) ea 10/24/19 [Rx unknown) Confirmed 12/27/21] (unknown) (no (unknown) (unknown) lorazepam 1 mg (units (unknown) date) tablet 1 mg PO unknown) DAILY PRN seizure like activity #20 tabs 12/15/21 (unknown) (no (unknown) (unknown) losartan 100 mg (units (unknown) date) tablet 100 mg PO unknown) QDAY #90 tabs 02/10/21 [Rx Confirmed 12/27/21] (unknown) (no (unknown) (unknown) may occur. (units (unk nown) date) Occasional unknown) wrong-word or 'sound-alike' substitutions may have (unknown) (no (unknown) (unknown) metformin 1,000 mg (units (unknown) date) tablet 1,000 mg PO unknown) BID 03/15/20 [History Confirmed 12/27/21] (unknown) (no (unknown) (unknown) metolazone 2.5 mg (units (unknown) date) tablet 2.5 mg PO Q unknown) OTHER DAY #16 tabs 12/09/21 [Rx Confirmed (unknown) (no (unknown) (unknown) zvufwqnk-nonaiy-GP (units (unknown) date) -thonzonm 3.3 mg-3 unknown) mg-10 mg-0.5 mg/mL ear drops,susp (unknown) (no (unknown) (unknown) occurred due to (units (unknown) date) the inherent unknown) limitations of voice recognition software. Please (unknown) (no (unknown) (unknown) omeprazole 20 mg (units (unknown) date) capsule,delayed unknown) release 20 mg PO BID #180 caps 12/09/21 [Rx (unknown) (no (unknown) (unknown) oxycodone (units (unkn own) date) [OXYCODONE] Allergy unknown) (Severe, Verified 12/27/21 14:58) (unknown) (no (unknown) (unknown) potassium chloride (units (unknown) date) 20 mEq unknown) tablet,extended release(part/cryst) 20 meq PO BID (unknown) (no (unknown) (unknown) primidone 50 mg (units (unknown) date) tablet 50 - 100 mg unknown) PO BID 05/11/21 [History Confirmed 12/27/21] (unknown) (no (unknown) (unknown) read the note (units ( unknown) date) carefully and unknown) recognize, using context, where these substitutions (unknown) (no (unknown) (unknown) software. Although (units (unknown) date) every effort is unknown) made to edit content, technical manager errors (unknown) (no (unknown) (unknown) sucralfate 1 gram (units (unknown) date) tablet 1 g PO ACHS unknown) #360 tabs 09/12/21 [Rx Confirmed 12/27/21] (unknown) (no (unknown) (unknown) tabs 12/20/21 [Rx (units (unknown) date) Confirmed 12/27/21] unknown) (unknown) (no (unknown) (unknown) tamsulosin 0.4 mg (units (unknown) date) capsule 0.4 mg PO unknown) DAILY 12/27/21 [History Confirmed 12/27/21] (unknown) (no (unknown) (unknown) tramadol 50 mg (units (unknown) date) tablet 50 mg PO TID unknown) PRN pain #90 tabs 11/24/21 [Rx Confirmed (unknown) (no (unknown) (unknown) trazodone 50 mg (units (unknown) date) tablet 50 mg PO unknown) BEDTIME #90 tabs 09/12/21 [Rx Confirmed (unknown) (no (unknown) (unknown) x1 week ago fell (units (unknown) date) on knees. unknown) Result panel 5 (unknown) (no (unknown) (unknown) (no value) (units (unk nown) date) unknown) (unknown) (no (unknown) (unknown) Medications: (units (u nknown) date) unknown) (unknown) (no (unknown) (unknown) (no value) (units (unk nown) date) unknown) (unknown) (no (unknown) (unknown) (no value) (units (unk nown) date) unknown) (unknown) (no (unknown) (unknown) 12/27/21 (units (unkno wn) date) unknown) (unknown) (no (unknown) (unknown) 15:06 (units (unkno wn) date) unknown) (unknown) (no (unknown) (unknown) ANAPHYLAXIS/PERCOC (units (unknown) date) ET. No Tylenol unknown) allergy (unknown) (no (unknown) (unknown) [place] (units ( unknown) date) [id number] unknown) (unknown) (no (unknown) (unknown) Draft (units (unkno wn) date) unknown) (unknown) (no (unknown) (unknown) Family history of (units (unknown) date) type 2 diabetes unknown) mellitus (unknown) (no (unknown) (unknown) [facility] ([facility]) (unknown) (no (unknown) (unknown) Internal Medicine (units (unknown) date) Office Visit unknown) (unknown) (no (unknown) (unknown) Take 2 tablets by (units (unknown) date) mouth every day. 40 unknown) mEq (2 x 20 mEq) PO QDAY 180 tabs 3RF (unknown) (no (unknown) (unknown) (no value) (units (unk nown) date) unknown) (unknown) (no (unknown) (unknown) (Cortisporin-TC) 3 (units (unknown) date) drop EAR-LEFT TID unknown) #10 mL 03/15/20 [Rx Confirmed 12/27/21] (unknown) (no (unknown) (unknown) [id number] (units (unkno wn) date) unknown) (unknown) (no (unknown) (unknown) 12/27/21 (units (unkno wn) date) unknown) (unknown) (no (unknown) (unknown) 12/27/21 [History (units (unknown) date) Confirmed 12/27/21] unknown) (unknown) (no (unknown) (unknown) 12/27/21] (units (unkn own) date) unknown) (unknown) (no (unknown) (unknown) Age/Sex: 61 / M (units (unknown) date) Date of Service: unknown) (unknown) (no (unknown) (unknown) Allergies (units (unkn own) date) unknown) (unknown) (no (unknown) (unknown) Assessment + Plan (units (unknown) date) unknown) (unknown) (no (unknown) (unknown) Attending Dr: Jeremiah (units (unknown) date) Shantell Leal MD unknown) (unknown) (no (unknown) (unknown) BMI 51.6 (units (un known) date) unknown) (unknown) (no (unknown) (unknown) BP 124/82 (units (u nknown) date) unknown) (unknown) (no (unknown) (unknown) BPH w urinary (units ( unknown) date) obs/LUTS unknown) (unknown) (no (unknown) (unknown) Blood Pressure (units (unknown) date) Location Lt unknown) brachial (unknown) (no (unknown) (unknown) CA (units (unkno wn) date) PANTOTHENATE/FOLIC unknown) ACID/VIT (MULTIVITAMIN) 1 tab PO Q DAY ##0 03/21/11 (unknown) (no (unknown) (unknown) Carpal tunnel (units ( unknown) date) syndrome unknown) (unknown) (no (unknown) (unknown) Changed (units (unkno wn) date) unknown) (unknown) (no (unknown) (unknown) Confirmed (units (unkn own) date) 12/27/21] unknown) (unknown) (no (unknown) (unknown) : 1960 (units (unknown) date) Acct:[id number] unknown) (unknown) (no (unknown) (unknown) Dept at (units (unkno wn) date) . unknown) (unknown) (no (unknown) (unknown) Diabetic (units (unkno wn) date) polyneuropathy unknown) associated with type 2 diabetes mellitus (05/27/15) (unknown) (no (unknown) (unknown) Disabled Parking (units (unknown) date) #1 ea 06/26/19 [Rx unknown) Confirmed 12/27/21] (unknown) (no (unknown) (unknown) Discuss Knees (units ( unknown) date) unknown) (unknown) (no (unknown) (unknown) Documented By: (units (unknown) date) Jeremiah Leal MD unknown) 12/27/21 1458 (unknown) (no (unknown) (unknown) Erectile (units (unkno wn) date) dysfunction unknown) (unknown) (no (unknown) (unknown) Essential (units (unkn own) date) hypertension unknown) (03/21/11) (unknown) (no (unknown) (unknown) Family History (units (unknown) date) (Reviewed 10/18/21 unknown) @ 14:19 by Margaret Pires MD) (unknown) (no (unknown) (unknown) From potassium (units (unknown) date) chloride ER unknown) (unknown) (no (unknown) (unknown) Gastroesophageal (units (unknown) date) reflux disease with unknown) esophagitis (05/15/16) (unknown) (no (unknown) (unknown) Glucose: Home (units ( unknown) date) Monitor dev ##1 unknown) 04/03/16 [Rx Confirmed 12/27/21] (unknown) (no (unknown) (unknown) Glucose: Test (units ( unknown) date) Strips #100 ea unknown) 01/06/21 [Rx Confirmed 12/27/21] (unknown) (no (unknown) (unknown) Height 6 ft (units (unknown) date) unknown) (unknown) (no (unknown) (unknown) History of knee (units (unknown) date) replacement unknown) (unknown) (no (unknown) (unknown) History of (units (unk nown) date) nephrolithiasis unknown) (unknown) (no (unknown) (unknown) 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 (03/21/11) (unknown) (no (unknown) (unknown) Instructions (units (u nknown) date) .Route .COMPLEX #16 unknown) grams 11/18/21 [Rx Confirmed 12/27/21] (unknown) (no (unknown) (unknown) Insulin) 78 unit (units (unknown) date) SUBCUT BID 07/19/21 unknown) [History Confirmed 12/27/21] (unknown) (no (unknown) (unknown) Intake (units (unkno wn) date) unknown) (unknown) (no (unknown) (unknown) Intake Note: (units (u nknown) date) unknown) (unknown) (no (unknown) (unknown) Intake performed (units (unknown) date) by: Maria L Wallis unknown) (unknown) (no (unknown) (unknown) Intake- Clincial (units (unknown) date) Staff unknown) (unknown) (no (unknown) (unknown) Lancets dev (units (un known) date) intradermal BID unknown) ##200 12/01/16 [Rx Confirmed 12/27/21] (unknown) (no (unknown) (unknown) Left-sided low (units (unknown) date) back pain with unknown) left-sided sciatica (04/27/15) (unknown) (no (unknown) (unknown) Loc: [facility] (units (unkno wn) date) unknown) (unknown) (no (unknown) (unknown) Lower urinary (units ( unknown) date) tract symptoms unknown) (LUTS) (unknown) (no (unknown) (unknown) Medical History (units (unknown) date) (Reviewed 10/18/21 unknown) @ 14:19 by Margaret Pires MD) (unknown) (no (unknown) (unknown) Medications (units (un known) date) unknown) (unknown) (no (unknown) (unknown) Mixed (units (unkno wn) date) hyperlipidemia unknown) (03/21/11) (unknown) (no (unknown) (unknown) Morbid obesity (units (unknown) date) unknown) (unknown) (no (unknown) (unknown) Obstructive sleep (units (unknown) date) apnea syndrome unknown) (03/21/11) (unknown) (no (unknown) (unknown) Oxygen Delivery (units (unknown) date) Method room air unknown) (unknown) (no (unknown) (unknown) PFSH (units (unkno wn) date) unknown) (unknown) (no (unknown) (unknown) Patient: (units (unkno wn) date) FischerShine James unknown) MR#: [id number] (unknown) (no (unknown) (unknown) Peripheral edema (units (unknown) date) (05/27/15) unknown) (unknown) (no (unknown) (unknown) Position (units (unkno wn) date) Sitting unknown) (unknown) (no (unknown) (unknown) Power Lift Chair (units (unknown) date) #1 ea 12/03/20 [Rx unknown) Confirmed 12/27/21] (unknown) (no (unknown) (unknown) Primary (units (unkno wn) date) osteoarthritis unknown) involving multiple joints (11/11/13) (unknown) (no (unknown) (unknown) Primary (units (unkno wn) date) osteoarthritis of unknown) both knees (02/26/17) (unknown) (no (unknown) (unknown) Prostate cancer (units (unknown) date) unknown) (unknown) (no (unknown) (unknown) Prostatic ductal (units (unknown) date) adenocarcinoma unknown) (unknown) (no (unknown) (unknown) Pulse 98 H (units ( unknown) date) unknown) (unknown) (no (unknown) (unknown) Pulse Oximetry (%) (units (unknown) date) 96 unknown) (unknown) (no (unknown) (unknown) Pulse Source (units (u nknown) date) Monitor unknown) (unknown) (no (unknown) (unknown) Reason For Visit (units (unknown) date) unknown) (unknown) (no (unknown) (unknown) Recheck Meds (units (u nknown) date) unknown) (unknown) (no (unknown) (unknown) Refill Tramadol. (units (unknown) date) unknown) (unknown) (no (unknown) (unknown) Restrictive lung (units (unknown) date) disease unknown) (unknown) (no (unknown) (unknown) Review/Discuss. (units (unknown) date) unknown) (unknown) (no (unknown) (unknown) See Rx (units (unkno wn) date) Instructions SUBCUT unknown) TID 06/04/20 [History Confirmed 12/27/21] (unknown) (no (unknown) (unknown) Signed By: (units (unk nown) date) unknown) (unknown) (no (unknown) (unknown) Smoking Status: (units (unknown) date) Former smoker unknown) (unknown) (no (unknown) (unknown) Sock Aid #2 ea (units (unknown) date) 02/11/21 [Rx unknown) Confirmed 12/27/21] (unknown) (no (unknown) (unknown) Status post (units (un known) date) tonsillectomy and unknown) adenoidectomy (unknown) (no (unknown) (unknown) Surgical History (units (unknown) date) (Reviewed 10/18/21 unknown) @ 14:19 by Margaret Pires MD) (unknown) (no (unknown) (unknown) TIA (transient (units (unknown) date) ischemic attack) unknown) (unknown) (no (unknown) (unknown) This note may have (units (unknown) date) been all or unknown) partially generated using voice recognition (unknown) (no (unknown) (unknown) To potassium (units (u nknown) date) chloride ER 20 mEq unknown) PO BID (unknown) (no (unknown) (unknown) Tobacco + (units (unkn own) date) Substance Use unknown) (unknown) (no (unknown) (unknown) Tobacco Status (units (unknown) date) unknown) (unknown) (no (unknown) (unknown) Type 2 diabetes (units (unknown) date) mellitus with unknown) hyperglycemia, with long-term current use of (unknown) (no (unknown) (unknown) Type 2 diabetes (units (unknown) date) mellitus with unknown) hypoglycemia without coma (04/27/15) (unknown) (no (unknown) (unknown) Unknown Family (units (unknown) date) history of breast unknown) cancer (unknown) (no (unknown) (unknown) Venous (units (unkno wn) date) insufficiency unknown) (unknown) (no (unknown) (unknown) Venous stasis (units ( unknown) date) unknown) (unknown) (no (unknown) (unknown) Visit Reasons: (units (unknown) date) Recheck Meds unknown) (unknown) (no (unknown) (unknown) Vitals (units (unkno wn) date) unknown) (unknown) (no (unknown) (unknown) Vitamin D (units (unkn own) date) deficiency unknown) (unknown) (no (unknown) (unknown) Weight 381 lb (units (unknown) date) unknown) (unknown) (no (unknown) (unknown) [History Confirmed (units (unknown) date) 12/27/21] unknown) (unknown) (no (unknown) (unknown) [Rx Confirmed (units ( unknown) date) 12/27/21] unknown) (unknown) (no (unknown) (unknown) acetaminophen (units ( unknown) date) [From Percocet] unknown) Allergy (Verified 12/27/21 14:58) (unknown) (no (unknown) (unknown) allopurinol 100 mg (units (unknown) date) tablet 100 mg PO unknown) DAILY #90 tabs 09/12/21 [Rx Confirmed (unknown) (no (unknown) (unknown) atorvastatin 40 mg (units (unknown) date) tablet 40 mg PO unknown) BEDTIME #90 tabs 09/12/21 [Rx Confirmed (unknown) (no (unknown) (unknown) bicalutamide 50 mg (units (unknown) date) tablet (Casodex) 50 unknown) mg PO DAILY #30 tabs 02/11/21 [Rx (unknown) (no (unknown) (unknown) clobetasol 0.05 % (units (unknown) date) topical cream unknown) (Temovate) 0.05 % topical PRN ##60 12/30/19 [Rx (unknown) (no (unknown) (unknown) cyclobenzaprine 10 (units (unknown) date) mg tablet 10 mg PO unknown) TIDP PRN muscle spasm #90 tabs 12/30/19 (unknown) (no (unknown) (unknown) dulaglutide 3 (units ( unknown) date) mg/0.5 mL unknown) subcutaneous pen injector (Trulicity) 3 mg SUBCUT QWEEK (unknown) (no (unknown) (unknown) famotidine 40 mg (units (unknown) date) tablet 40 mg PO unknown) DAILY #90 tabs 12/24/20 [Rx Confirmed 12/27/21] (unknown) (no (unknown) (unknown) fluticasone (units (un known) date) propionate 50 unknown) mcg/actuation nasal spray,suspension See Rx (unknown) (no (unknown) (unknown) furosemide 40 mg (units (unknown) date) tablet 80 mg PO unknown) DAILY #180 tabs 12/09/21 [Rx Confirmed (unknown) (no (unknown) (unknown) gabapentin 600 mg (units (unknown) date) tablet 1,200 mg PO unknown) TID #360 tabs 12/30/19 [Rx Confirmed (unknown) (no (unknown) (unknown) have occurred. If (units (unknown) date) there are any unknown) questions, please contact the Medical Records (unknown) (no (unknown) (unknown) hydrocodone 10 (units (unknown) date) mg-acetaminophen unknown) 325 mg tablet 1 - 2 tab PO Q4H PRN pain #180 (unknown) (no (unknown) (unknown) insulin (units (unkno wn) date) unknown) (unknown) (no (unknown) (unknown) insulin glargine (units (unknown) date) 100 unit/mL (3 mL) unknown) subcutaneous pen (Lantus Solostar U-100 (unknown) (no (unknown) (unknown) insulin lispro 100 (units (unknown) date) unit/mL unknown) subcutaneous pen (Humalog KwikPen (U-100) Insulin) (unknown) (no (unknown) (unknown) ketoconazole 2 % (units (unknown) date) shampoo 1 applic unknown) topical Q2W 12/27/21 [History Confirmed (unknown) (no (unknown) (unknown) latex gloves #500 (units (unknown) date) ea 10/24/19 [Rx unknown) Confirmed 12/27/21] (unknown) (no (unknown) (unknown) lorazepam 1 mg (units (unknown) date) tablet 1 mg PO unknown) DAILY PRN seizure like activity #20 tabs 12/15/21 (unknown) (no (unknown) (unknown) losartan 100 mg (units (unknown) date) tablet 100 mg PO unknown) QDAY #90 tabs 02/10/21 [Rx Confirmed 12/27/21] (unknown) (no (unknown) (unknown) may occur. (units (unk nown) date) Occasional unknown) wrong-word or 'sound-alike' substitutions may have (unknown) (no (unknown) (unknown) metformin 1,000 mg (units (unknown) date) tablet 1,000 mg PO unknown) BID 03/15/20 [History Confirmed 12/27/21] (unknown) (no (unknown) (unknown) metolazone 2.5 mg (units (unknown) date) tablet 2.5 mg PO Q unknown) OTHER DAY #16 tabs 12/09/21 [Rx Confirmed (unknown) (no (unknown) (unknown) [id number] (units (unknown) date) -thonzonm 3.3 mg-3 unknown) mg-10 mg-0.5 mg/mL ear drops,susp (unknown) (no (unknown) (unknown) occurred due to (units (unknown) date) the inherent unknown) limitations of voice recognition software. Please (unknown) (no (unknown) (unknown) omeprazole 20 mg (units (unknown) date) capsule,delayed unknown) release 20 mg PO BID #180 caps 12/09/21 [Rx (unknown) (no (unknown) (unknown) oxycodone (units (unkn own) date) [OXYCODONE] Allergy unknown) (Severe, Verified 12/27/21 14:58) (unknown) (no (unknown) (unknown) potassium chloride (units (unknown) date) 20 mEq unknown) tablet,extended release(part/cryst) 20 meq PO BID (unknown) (no (unknown) (unknown) primidone 50 mg (units (unknown) date) tablet 50 - 100 mg unknown) PO BID 05/11/21 [History Confirmed 12/27/21] (unknown) (no (unknown) (unknown) read the note (units ( unknown) date) carefully and unknown) recognize, using context, where these substitutions (unknown) (no (unknown) (unknown) software. Although (units (unknown) date) every effort is unknown) made to edit content, technical manager errors (unknown) (no (unknown) (unknown) sucralfate 1 gram (units (unknown) date) tablet 1 g PO ACHS unknown) #360 tabs 09/12/21 [Rx Confirmed 12/27/21] (unknown) (no (unknown) (unknown) tabs 12/20/21 [Rx (units (unknown) date) Confirmed 12/27/21] unknown) (unknown) (no (unknown) (unknown) tamsulosin 0.4 mg (units (unknown) date) capsule 0.4 mg PO unknown) DAILY 12/27/21 [History Confirmed 12/27/21] (unknown) (no (unknown) (unknown) tramadol 50 mg (units (unknown) date) tablet 50 mg PO TID unknown) PRN pain #90 tabs 11/24/21 [Rx Confirmed (unknown) (no (unknown) (unknown) trazodone 50 mg (units (unknown) date) tablet 50 mg PO unknown) BEDTIME #90 tabs 09/12/21 [Rx Confirmed (unknown) (no (unknown) (unknown) x1 week ago fell (units (unknown) date) on knees. unknown) Result panel 6 (unknown) (no (unknown) (unknown) (no value) (units (unk nown) date) unknown) (unknown) (no (unknown) (unknown) Medications: (units (u nknown) date) unknown) (unknown) (no (unknown) (unknown) (no value) (units (unk nown) date) unknown) (unknown) (no (unknown) (unknown) (no value) (units (unk nown) date) unknown) (unknown) (no (unknown) (unknown) 12/27/21 (units (unkno wn) date) unknown) (unknown) (no (unknown) (unknown) 15:06 (units (unkno wn) date) unknown) (unknown) (no (unknown) (unknown) ANAPHYLAXIS/PERCOC (units (unknown) date) ET. No Tylenol unknown) allergy (unknown) (no (unknown) (unknown) [place] (units ( unknown) date) [id number] unknown) (unknown) (no (unknown) (unknown) Draft (units (unkno wn) date) unknown) (unknown) (no (unknown) (unknown) Family history of (units (unknown) date) type 2 diabetes unknown) mellitus (unknown) (no (unknown) (unknown) [facility] ([facility] ([facility] date[facility] unknown) (unknown) (no (unknown) (unknown) Internal Medicine (units (unknown) date) Office Visit unknown) (unknown) (no (unknown) (unknown) Take 2 tablets by (units (unknown) date) mouth every day. 40 unknown) mEq (2 x 20 mEq) PO QDAY 180 tabs 3RF (unknown) (no (unknown) (unknown) (no value) (units (unk nown) date) unknown) (unknown) (no (unknown) (unknown) (Cortisporin-TC) 3 (units (unknown) date) drop EAR-LEFT TID unknown) #10 mL 03/15/20 [Rx Confirmed 12/27/21] (unknown) (no (unknown) (unknown) [id number] (units (unkno wn) date) unknown) (unknown) (no (unknown) (unknown) 12/27/21 (units (unkno wn) date) unknown) (unknown) (no (unknown) (unknown) 12/27/21 [History (units (unknown) date) Confirmed 12/27/21] unknown) (unknown) (no (unknown) (unknown) 12/27/21] (units (unkn own) date) unknown) (unknown) (no (unknown) (unknown) Age/Sex: 61 / M (units (unknown) date) Date of Service: unknown) (unknown) (no (unknown) (unknown) Allergies (units (unkn own) date) unknown) (unknown) (no (unknown) (unknown) Assessment + Plan (units (unknown) date) unknown) (unknown) (no (unknown) (unknown) Attending Dr: Jeremiah (units (unknown) date) Shantell Leal MD unknown) (unknown) (no (unknown) (unknown) BMI 51.6 (units (un known) date) unknown) (unknown) (no (unknown) (unknown) BP 124/82 (units (u nknown) date) unknown) (unknown) (no (unknown) (unknown) BPH w urinary (units ( unknown) date) obs/LUTS unknown) (unknown) (no (unknown) (unknown) Blood Pressure (units (unknown) date) Location Lt unknown) brachial (unknown) (no (unknown) (unknown) CA (units (unkno wn) date) PANTOTHENATE/FOLIC unknown) ACID/VIT (MULTIVITAMIN) 1 tab PO Q DAY ##0 03/21/11 (unknown) (no (unknown) (unknown) Carpal tunnel (units ( unknown) date) syndrome unknown) (unknown) (no (unknown) (unknown) Changed (units (unkno wn) date) unknown) (unknown) (no (unknown) (unknown) Confirmed (units (unkn own) date) 12/27/21] unknown) (unknown) (no (unknown) (unknown) : 1960 (units (unknown) date) Acct:[id number] unknown) (unknown) (no (unknown) (unknown) Dept at (units (unkno wn) date) . unknown) (unknown) (no (unknown) (unknown) Diabetic (units (unkno wn) date) polyneuropathy unknown) associated with type 2 diabetes mellitus (05/27/15) (unknown) (no (unknown) (unknown) Disabled Parking (units (unknown) date) #1 ea 06/26/19 [Rx unknown) Confirmed 12/27/21] (unknown) (no (unknown) (unknown) Discuss Knees (units ( unknown) date) unknown) (unknown) (no (unknown) (unknown) Documented By: (units (unknown) date) Jeremiah Leal MD unknown) 12/27/21 1458 (unknown) (no (unknown) (unknown) Erectile (units (unkno wn) date) dysfunction unknown) (unknown) (no (unknown) (unknown) Essential (units (unkn own) date) hypertension unknown) (03/21/11) (unknown) (no (unknown) (unknown) Family History (units (unknown) date) (Reviewed 10/18/21 unknown) @ 14:19 by Margaret Pires MD) (unknown) (no (unknown) (unknown) From potassium (units (unknown) date) chloride ER unknown) (unknown) (no (unknown) (unknown) Gastroesophageal (units (unknown) date) reflux disease with unknown) esophagitis (05/15/16) (unknown) (no (unknown) (unknown) Glucose: Home (units ( unknown) date) Monitor dev ##1 unknown) 04/03/16 [Rx Confirmed 12/27/21] (unknown) (no (unknown) (unknown) Glucose: Test (units ( unknown) date) Strips #100 ea unknown) 01/06/21 [Rx Confirmed 12/27/21] (unknown) (no (unknown) (unknown) Height 6 ft (units (unknown) date) unknown) (unknown) (no (unknown) (unknown) History of knee (units (unknown) date) replacement unknown) (unknown) (no (unknown) (unknown) History of (units (unk nown) date) nephrolithiasis unknown) (unknown) (no (unknown) (unknown) 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 (03/21/11) (unknown) (no (unknown) (unknown) Instructions (units (u nknown) date) .Route .COMPLEX #16 unknown) grams 11/18/21 [Rx Confirmed 12/27/21] (unknown) (no (unknown) (unknown) Insulin) 78 unit (units (unknown) date) SUBCUT BID 07/19/21 unknown) [History Confirmed 12/27/21] (unknown) (no (unknown) (unknown) Intake (units (unkno wn) date) unknown) (unknown) (no (unknown) (unknown) Intake Note: (units (u nknown) date) unknown) (unknown) (no (unknown) (unknown) Intake performed (units (unknown) date) by: Maria L Wallis unknown) (unknown) (no (unknown) (unknown) Intake- Clincial (units (unknown) date) Staff unknown) (unknown) (no (unknown) (unknown) Lancets dev (units (un known) date) intradermal BID unknown) ##200 12/01/16 [Rx Confirmed 12/27/21] (unknown) (no (unknown) (unknown) Left-sided low (units (unknown) date) back pain with unknown) left-sided sciatica (04/27/15) (unknown) (no (unknown) (unknown) Loc: [facility] (units (unkno wn) date) unknown) (unknown) (no (unknown) (unknown) Lower urinary (units ( unknown) date) tract symptoms unknown) (LUTS) (unknown) (no (unknown) (unknown) Medical History (units (unknown) date) (Reviewed 10/18/21 unknown) @ 14:19 by Margaret Pires MD) (unknown) (no (unknown) (unknown) Medications (units (un known) date) unknown) (unknown) (no (unknown) (unknown) Mixed (units (unkno wn) date) hyperlipidemia unknown) (03/21/11) (unknown) (no (unknown) (unknown) Morbid obesity (units (unknown) date) unknown) (unknown) (no (unknown) (unknown) Obstructive sleep (units (unknown) date) apnea syndrome unknown) (03/21/11) (unknown) (no (unknown) (unknown) Oxygen Delivery (units (unknown) date) Method room air unknown) (unknown) (no (unknown) (unknown) PFSH (units (unkno wn) date) unknown) (unknown) (no (unknown) (unknown) Patient: (units (unkno wn) date) Shine Fischer James unknown) MR#: [id number] (unknown) (no (unknown) (unknown) Peripheral edema (units (unknown) date) (05/27/15) unknown) (unknown) (no (unknown) (unknown) Position (units (unkno wn) date) Sitting unknown) (unknown) (no (unknown) (unknown) Power Lift Chair (units (unknown) date) #1 ea 12/03/20 [Rx unknown) Confirmed 12/27/21] (unknown) (no (unknown) (unknown) Primary (units (unkno wn) date) osteoarthritis unknown) involving multiple joints (11/11/13) (unknown) (no (unknown) (unknown) Primary (units (unkno wn) date) osteoarthritis of unknown) both knees (02/26/17) (unknown) (no (unknown) (unknown) Prostate cancer (units (unknown) date) unknown) (unknown) (no (unknown) (unknown) Prostatic ductal (units (unknown) date) adenocarcinoma unknown) (unknown) (no (unknown) (unknown) Pulse 98 H (units ( unknown) date) unknown) (unknown) (no (unknown) (unknown) Pulse Oximetry (%) (units (unknown) date) 96 unknown) (unknown) (no (unknown) (unknown) Pulse Source (units (u nknown) date) Monitor unknown) (unknown) (no (unknown) (unknown) Reason For Visit (units (unknown) date) unknown) (unknown) (no (unknown) (unknown) Recheck Meds (units (u nknown) date) unknown) (unknown) (no (unknown) (unknown) Refill Tramadol. (units (unknown) date) unknown) (unknown) (no (unknown) (unknown) Restrictive lung (units (unknown) date) disease unknown) (unknown) (no (unknown) (unknown) Review/Discuss. (units (unknown) date) unknown) (unknown) (no (unknown) (unknown) See Rx (units (unkno wn) date) Instructions SUBCUT unknown) TID 06/04/20 [History Confirmed 12/27/21] (unknown) (no (unknown) (unknown) Signed By: (units (unk nown) date) unknown) (unknown) (no (unknown) (unknown) Smoking Status: (units (unknown) date) Former smoker unknown) (unknown) (no (unknown) (unknown) Sock Aid #2 ea (units (unknown) date) 02/11/21 [Rx unknown) Confirmed 12/27/21] (unknown) (no (unknown) (unknown) Status post (units (un known) date) tonsillectomy and unknown) adenoidectomy (unknown) (no (unknown) (unknown) Surgical History (units (unknown) date) (Reviewed 10/18/21 unknown) @ 14:19 by Margaret Pires MD) (unknown) (no (unknown) (unknown) TIA (transient (units (unknown) date) ischemic attack) unknown) (unknown) (no (unknown) (unknown) This note may have (units (unknown) date) been all or unknown) partially generated using voice recognition (unknown) (no (unknown) (unknown) To potassium (units (u nknown) date) chloride ER 20 mEq unknown) PO BID (unknown) (no (unknown) (unknown) Tobacco + (units (unkn own) date) Substance Use unknown) (unknown) (no (unknown) (unknown) Tobacco Status (units (unknown) date) unknown) (unknown) (no (unknown) (unknown) Type 2 diabetes (units (unknown) date) mellitus with unknown) hyperglycemia, with long-term current use of (unknown) (no (unknown) (unknown) Type 2 diabetes (units (unknown) date) mellitus with unknown) hypoglycemia without coma (04/27/15) (unknown) (no (unknown) (unknown) Unknown Family (units (unknown) date) history of breast unknown) cancer (unknown) (no (unknown) (unknown) Venous (units (unkno wn) date) insufficiency unknown) (unknown) (no (unknown) (unknown) Venous stasis (units ( unknown) date) unknown) (unknown) (no (unknown) (unknown) Visit Reasons: (units (unknown) date) Recheck Meds unknown) (unknown) (no (unknown) (unknown) Vitals (units (unkno wn) date) unknown) (unknown) (no (unknown) (unknown) Vitamin D (units (unkn own) date) deficiency unknown) (unknown) (no (unknown) (unknown) Weight 172.819 (units (unknown) date) kg unknown) (unknown) (no (unknown) (unknown) [History Confirmed (units (unknown) date) 12/27/21] unknown) (unknown) (no (unknown) (unknown) [Rx Confirmed (units ( unknown) date) 12/27/21] unknown) (unknown) (no (unknown) (unknown) acetaminophen (units ( unknown) date) [From Percocet] unknown) Allergy (Verified 12/27/21 14:58) (unknown) (no (unknown) (unknown) allopurinol 100 mg (units (unknown) date) tablet 100 mg PO unknown) DAILY #90 tabs 09/12/21 [Rx Confirmed (unknown) (no (unknown) (unknown) atorvastatin 40 mg (units (unknown) date) tablet 40 mg PO unknown) BEDTIME #90 tabs 09/12/21 [Rx Confirmed (unknown) (no (unknown) (unknown) bicalutamide 50 mg (units (unknown) date) tablet (Casodex) 50 unknown) mg PO DAILY #30 tabs 02/11/21 [Rx (unknown) (no (unknown) (unknown) clobetasol 0.05 % (units (unknown) date) topical cream unknown) (Temovate) 0.05 % topical PRN ##60 12/30/19 [Rx (unknown) (no (unknown) (unknown) cyclobenzaprine 10 (units (unknown) date) mg tablet 10 mg PO unknown) TIDP PRN muscle spasm #90 tabs 12/30/19 (unknown) (no (unknown) (unknown) dulaglutide 3 (units ( unknown) date) mg/0.5 mL unknown) subcutaneous pen injector (Trulicity) 3 mg SUBCUT QWEEK (unknown) (no (unknown) (unknown) famotidine 40 mg (units (unknown) date) tablet 40 mg PO unknown) DAILY #90 tabs 12/24/20 [Rx Confirmed 12/27/21] (unknown) (no (unknown) (unknown) fluticasone (units (un known) date) propionate 50 unknown) mcg/actuation nasal spray,suspension See Rx (unknown) (no (unknown) (unknown) furosemide 40 mg (units (unknown) date) tablet 80 mg PO unknown) DAILY #180 tabs 12/09/21 [Rx Confirmed (unknown) (no (unknown) (unknown) gabapentin 600 mg (units (unknown) date) tablet 1,200 mg PO unknown) TID #360 tabs 12/30/19 [Rx Confirmed (unknown) (no (unknown) (unknown) have occurred. If (units (unknown) date) there are any unknown) questions, please contact the Medical Records (unknown) (no (unknown) (unknown) hydrocodone 10 (units (unknown) date) mg-acetaminophen unknown) 325 mg tablet 1 - 2 tab PO Q4H PRN pain #180 (unknown) (no (unknown) (unknown) insulin (units (unkno wn) date) unknown) (unknown) (no (unknown) (unknown) insulin glargine (units (unknown) date) 100 unit/mL (3 mL) unknown) subcutaneous pen (Lantus Solostar U-100 (unknown) (no (unknown) (unknown) insulin lispro 100 (units (unknown) date) unit/mL unknown) subcutaneous pen (Humalog KwikPen (U-100) Insulin) (unknown) (no (unknown) (unknown) ketoconazole 2 % (units (unknown) date) shampoo 1 applic unknown) topical Q2W 12/27/21 [History Confirmed (unknown) (no (unknown) (unknown) latex gloves #500 (units (unknown) date) ea 10/24/19 [Rx unknown) Confirmed 12/27/21] (unknown) (no (unknown) (unknown) lorazepam 1 mg (units (unknown) date) tablet 1 mg PO unknown) DAILY PRN seizure like activity #20 tabs 12/15/21 (unknown) (no (unknown) (unknown) losartan 100 mg (units (unknown) date) tablet 100 mg PO unknown) QDAY #90 tabs 02/10/21 [Rx Confirmed 12/27/21] (unknown) (no (unknown) (unknown) may occur. (units (unk nown) date) Occasional unknown) wrong-word or 'sound-alike' substitutions may have (unknown) (no (unknown) (unknown) metformin 1,000 mg (units (unknown) date) tablet 1,000 mg PO unknown) BID 03/15/20 [History Confirmed 12/27/21] (unknown) (no (unknown) (unknown) metolazone 2.5 mg (units (unknown) date) tablet 2.5 mg PO Q unknown) OTHER DAY #16 tabs 12/09/21 [Rx Confirmed (unknown) (no (unknown) (unknown) mkjfcpea-bzlwzd-MS (units (unknown) date) -thonzonm 3.3 mg-3 unknown) mg-10 mg-0.5 mg/mL ear drops,susp (unknown) (no (unknown) (unknown) occurred due to (units (unknown) date) the inherent unknown) limitations of voice recognition software. Please (unknown) (no (unknown) (unknown) omeprazole 20 mg (units (unknown) date) capsule,delayed unknown) release 20 mg PO BID #180 caps 12/09/21 [Rx (unknown) (no (unknown) (unknown) oxycodone (units (unkn own) date) [OXYCODONE] Allergy unknown) (Severe, Verified 12/27/21 14:58) (unknown) (no (unknown) (unknown) potassium chloride (units (unknown) date) 20 mEq unknown) tablet,extended release(part/cryst) 20 meq PO BID (unknown) (no (unknown) (unknown) primidone 50 mg (units (unknown) date) tablet 50 - 100 mg unknown) PO BID 05/11/21 [History Confirmed 12/27/21] (unknown) (no (unknown) (unknown) read the note (units ( unknown) date) carefully and unknown) recognize, using context, where these substitutions (unknown) (no (unknown) (unknown) software. Although (units (unknown) date) every effort is unknown) made to edit content, technical manager errors (unknown) (no (unknown) (unknown) sucralfate 1 gram (units (unknown) date) tablet 1 g PO ACHS unknown) #360 tabs 09/12/21 [Rx Confirmed 12/27/21] (unknown) (no (unknown) (unknown) tabs 12/20/21 [Rx (units (unknown) date) Confirmed 12/27/21] unknown) (unknown) (no (unknown) (unknown) tamsulosin 0.4 mg (units (unknown) date) capsule 0.4 mg PO unknown) DAILY 12/27/21 [History Confirmed 12/27/21] (unknown) (no (unknown) (unknown) tramadol 50 mg (units (unknown) date) tablet 50 mg PO TID unknown) PRN pain #90 tabs 11/24/21 [Rx Confirmed (unknown) (no (unknown) (unknown) trazodone 50 mg (units (unknown) date) tablet 50 mg PO unknown) BEDTIME #90 tabs 09/12/21 [Rx Confirmed (unknown) (no (unknown) (unknown) x1 week ago fell (units (unknown) date) on knees. unknown) Result panel 7 (unknown) (no (unknown) (unknown) (no value) (units (unk nown) date) unknown) (unknown) (no (unknown) (unknown) Medications: (units (u nknown) date) unknown) (unknown) (no (unknown) (unknown) (no value) (units (unk nown) date) unknown) (unknown) (no (unknown) (unknown) (no value) (units (unk nown) date) unknown) (unknown) (no (unknown) (unknown) 12/27/21 (units (unkno wn) date) unknown) (unknown) (no (unknown) (unknown) 15:06 (units (unkno wn) date) unknown) (unknown) (no (unknown) (unknown) ANAPHYLAXIS/PERCOC (units (unknown) date) ET. No Tylenol unknown) allergy (unknown) (no (unknown) (unknown) [place] (units ( unknown) date) [id number] unknown) (unknown) (no (unknown) (unknown) Draft (units (unkno wn) date) unknown) (unknown) (no (unknown) (unknown) Family history of (units (unknown) date) type 2 diabetes unknown) mellitus (unknown) (no (unknown) (unknown) [facility] (units ([facility] date[facility] unknown) (unknown) (no (unknown) (unknown) Internal Medicine (units (unknown) date) Office Visit unknown) (unknown) (no (unknown) (unknown) Take 2 tablets by (units (unknown) date) mouth every day. 40 unknown) mEq (2 x 20 mEq) PO QDAY 180 tabs 3RF (unknown) (no (unknown) (unknown) (no value) (units (unk nown) date) unknown) (unknown) (no (unknown) (unknown) (Cortisporin-TC) 3 (units (unknown) date) drop EAR-LEFT TID unknown) #10 mL 03/15/20 [Rx Confirmed 12/27/21] (unknown) (no (unknown) (unknown) [id number] (units (unkno wn) date) unknown) (unknown) (no (unknown) (unknown) 12/27/21 (units (unkno wn) date) unknown) (unknown) (no (unknown) (unknown) 12/27/21 [History (units (unknown) date) Confirmed 12/27/21] unknown) (unknown) (no (unknown) (unknown) 12/27/21] (units (unkn own) date) unknown) (unknown) (no (unknown) (unknown) Age/Sex: 61 / M (units (unknown) date) Date of Service: unknown) (unknown) (no (unknown) (unknown) Allergies (units (unkn own) date) unknown) (unknown) (no (unknown) (unknown) Assessment + Plan (units (unknown) date) unknown) (unknown) (no (unknown) (unknown) Attending Dr: Jeremiah (units (unknown) date) Shantell Leal MD unknown) (unknown) (no (unknown) (unknown) BMI 51.6 (units (un known) date) unknown) (unknown) (no (unknown) (unknown) BP 124/82 (units (u nknown) date) unknown) (unknown) (no (unknown) (unknown) BPH w urinary (units ( unknown) date) obs/LUTS unknown) (unknown) (no (unknown) (unknown) Blood Pressure (units (unknown) date) Location Lt unknown) brachial (unknown) (no (unknown) (unknown) CA (units (unkno wn) date) PANTOTHENATE/FOLIC unknown) ACID/VIT (MULTIVITAMIN) 1 tab PO Q DAY ##0 03/21/11 (unknown) (no (unknown) (unknown) Carpal tunnel (units ( unknown) date) syndrome unknown) (unknown) (no (unknown) (unknown) Changed (units (unkno wn) date) unknown) (unknown) (no (unknown) (unknown) Confirmed (units (unkn own) date) 12/27/21] unknown) (unknown) (no (unknown) (unknown) : 1960 (units (unknown) date) Acct:[id number] unknown) (unknown) (no (unknown) (unknown) Dept at (units (unkno wn) date) . unknown) (unknown) (no (unknown) (unknown) Diabetic (units (unkno wn) date) polyneuropathy unknown) associated with type 2 diabetes mellitus (05/27/15) (unknown) (no (unknown) (unknown) Disabled Parking (units (unknown) date) #1 ea 06/26/19 [Rx unknown) Confirmed 12/27/21] (unknown) (no (unknown) (unknown) Discuss Knees (units ( unknown) date) unknown) (unknown) (no (unknown) (unknown) Documented By: (units (unknown) date) Jeremiah Leal MD unknown) 12/27/21 1458 (unknown) (no (unknown) (unknown) Erectile (units (unkno wn) date) dysfunction unknown) (unknown) (no (unknown) (unknown) Essential (units (unkn own) date) hypertension unknown) (03/21/11) (unknown) (no (unknown) (unknown) Family History (units (unknown) date) (Reviewed 10/18/21 unknown) @ 14:19 by Margaret Pires MD) (unknown) (no (unknown) (unknown) From potassium (units (unknown) date) chloride ER unknown) (unknown) (no (unknown) (unknown) Gastroesophageal (units (unknown) date) reflux disease with unknown) esophagitis (05/15/16) (unknown) (no (unknown) (unknown) Glucose: Home (units ( unknown) date) Monitor dev ##1 unknown) 04/03/16 [Rx Confirmed 12/27/21] (unknown) (no (unknown) (unknown) Glucose: Test (units ( unknown) date) Strips #100 ea unknown) 01/06/21 [Rx Confirmed 12/27/21] (unknown) (no (unknown) (unknown) Height 6 ft (units (unknown) date) unknown) (unknown) (no (unknown) (unknown) History of knee (units (unknown) date) replacement unknown) (unknown) (no (unknown) (unknown) History of (units (unk nown) date) nephrolithiasis unknown) (unknown) (no (unknown) (unknown) 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 (03/21/11) (unknown) (no (unknown) (unknown) Instructions (units (u nknown) date) .Route .COMPLEX #16 unknown) grams 11/18/21 [Rx Confirmed 12/27/21] (unknown) (no (unknown) (unknown) Insulin) 78 unit (units (unknown) date) SUBCUT BID 07/19/21 unknown) [History Confirmed 12/27/21] (unknown) (no (unknown) (unknown) Intake (units (unkno wn) date) unknown) (unknown) (no (unknown) (unknown) Intake Note: (units (u nknown) date) unknown) (unknown) (no (unknown) (unknown) Intake performed (units (unknown) date) by: Maria L Wallis unknown) (unknown) (no (unknown) (unknown) Intake- Clincial (units (unknown) date) Staff unknown) (unknown) (no (unknown) (unknown) Lancets dev (units (un known) date) intradermal BID unknown) ##200 12/01/16 [Rx Confirmed 12/27/21] (unknown) (no (unknown) (unknown) Left-sided low (units (unknown) date) back pain with unknown) left-sided sciatica (04/27/15) (unknown) (no (unknown) (unknown) Loc: [facility] (units (unkno wn) date) unknown) (unknown) (no (unknown) (unknown) Lower urinary (units ( unknown) date) tract symptoms unknown) (LUTS) (unknown) (no (unknown) (unknown) Medical History (units (unknown) date) (Reviewed 10/18/21 unknown) @ 14:19 by Margaret Pires MD) (unknown) (no (unknown) (unknown) Medications (units (un known) date) unknown) (unknown) (no (unknown) (unknown) Mixed (units (unkno wn) date) hyperlipidemia unknown) (03/21/11) (unknown) (no (unknown) (unknown) Morbid obesity (units (unknown) date) unknown) (unknown) (no (unknown) (unknown) Obstructive sleep (units (unknown) date) apnea syndrome unknown) (03/21/11) (unknown) (no (unknown) (unknown) Oxygen Delivery (units (unknown) date) Method room air unknown) (unknown) (no (unknown) (unknown) PFSH (units (unkno wn) date) unknown) (unknown) (no (unknown) (unknown) Patient: (units (unkno wn) date) AmadoShine James unknown) MR#: [id number] (unknown) (no (unknown) (unknown) Peripheral edema (units (unknown) date) (05/27/15) unknown) (unknown) (no (unknown) (unknown) Position (units (unkno wn) date) Sitting unknown) (unknown) (no (unknown) (unknown) Power Lift Chair (units (unknown) date) #1 ea 12/03/20 [Rx unknown) Confirmed 12/27/21] (unknown) (no (unknown) (unknown) Primary (units (unkno wn) date) osteoarthritis unknown) involving multiple joints (11/11/13) (unknown) (no (unknown) (unknown) Primary (units (unkno wn) date) osteoarthritis of unknown) both knees (02/26/17) (unknown) (no (unknown) (unknown) Prostate cancer (units (unknown) date) unknown) (unknown) (no (unknown) (unknown) Prostatic ductal (units (unknown) date) adenocarcinoma unknown) (unknown) (no (unknown) (unknown) Pulse 98 H (units ( unknown) date) unknown) (unknown) (no (unknown) (unknown) Pulse Oximetry (%) (units (unknown) date) 96 unknown) (unknown) (no (unknown) (unknown) Pulse Source (units (u nknown) date) Monitor unknown) (unknown) (no (unknown) (unknown) Reason For Visit (units (unknown) date) unknown) (unknown) (no (unknown) (unknown) Recheck Meds (units (u nknown) date) unknown) (unknown) (no (unknown) (unknown) Refill Tramadol. (units (unknown) date) unknown) (unknown) (no (unknown) (unknown) Refilled (units (unkno wn) date) unknown) (unknown) (no (unknown) (unknown) Restrictive lung (units (unknown) date) disease unknown) (unknown) (no (unknown) (unknown) Review/Discuss. (units (unknown) date) unknown) (unknown) (no (unknown) (unknown) See Rx (units (unkno wn) date) Instructions SUBCUT unknown) TID 06/04/20 [History Confirmed 12/27/21] (unknown) (no (unknown) (unknown) Signed By: (units (unk nown) date) unknown) (unknown) (no (unknown) (unknown) Smoking Status: (units (unknown) date) Former smoker unknown) (unknown) (no (unknown) (unknown) Sock Aid #2 ea (units (unknown) date) 02/11/21 [Rx unknown) Confirmed 12/27/21] (unknown) (no (unknown) (unknown) Status post (units (un known) date) tonsillectomy and unknown) adenoidectomy (unknown) (no (unknown) (unknown) Surgical History (units (unknown) date) (Reviewed 10/18/21 unknown) @ 14:19 by Margaret Pires MD) (unknown) (no (unknown) (unknown) TIA (transient (units (unknown) date) ischemic attack) unknown) (unknown) (no (unknown) (unknown) This note may have (units (unknown) date) been all or unknown) partially generated using voice recognition (unknown) (no (unknown) (unknown) To potassium (units (u nknown) date) chloride ER 20 mEq unknown) PO BID (unknown) (no (unknown) (unknown) Tobacco + (units (unkn own) date) Substance Use unknown) (unknown) (no (unknown) (unknown) Tobacco Status (units (unknown) date) unknown) (unknown) (no (unknown) (unknown) Type 2 diabetes (units (unknown) date) mellitus with unknown) hyperglycemia, with long-term current use of (unknown) (no (unknown) (unknown) Type 2 diabetes (units (unknown) date) mellitus with unknown) hypoglycemia without coma (04/27/15) (unknown) (no (unknown) (unknown) Unknown Family (units (unknown) date) history of breast unknown) cancer (unknown) (no (unknown) (unknown) Venous (units (unkno wn) date) insufficiency unknown) (unknown) (no (unknown) (unknown) Venous stasis (units ( unknown) date) unknown) (unknown) (no (unknown) (unknown) Visit Reasons: (units (unknown) date) Recheck Meds unknown) (unknown) (no (unknown) (unknown) Vitals (units (unkno wn) date) unknown) (unknown) (no (unknown) (unknown) Vitamin D (units (unkn own) date) deficiency unknown) (unknown) (no (unknown) (unknown) Weight 381 lb (units (unknown) date) unknown) (unknown) (no (unknown) (unknown) [History Confirmed (units (unknown) date) 12/27/21] unknown) (unknown) (no (unknown) (unknown) [Rx Confirmed (units ( unknown) date) 12/27/21] unknown) (unknown) (no (unknown) (unknown) acetaminophen (units ( unknown) date) [From Percocet] unknown) Allergy (Verified 12/27/21 14:58) (unknown) (no (unknown) (unknown) allopurinol 100 mg (units (unknown) date) tablet 100 mg PO unknown) DAILY #90 tabs 09/12/21 [Rx Confirmed (unknown) (no (unknown) (unknown) atorvastatin 40 mg (units (unknown) date) tablet 40 mg PO unknown) BEDTIME #90 tabs 09/12/21 [Rx Confirmed (unknown) (no (unknown) (unknown) bicalutamide 50 mg (units (unknown) date) tablet (Casodex) 50 unknown) mg PO DAILY #30 tabs 02/11/21 [Rx (unknown) (no (unknown) (unknown) clobetasol 0.05 % (units (unknown) date) topical cream unknown) (Temovate) 0.05 % topical PRN ##60 12/30/19 [Rx (unknown) (no (unknown) (unknown) cyclobenzaprine 10 (units (unknown) date) mg tablet 10 mg PO unknown) TIDP PRN muscle spasm #90 tabs 12/30/19 (unknown) (no (unknown) (unknown) dulaglutide 3 (units ( unknown) date) mg/0.5 mL unknown) subcutaneous pen injector (Trulicity) 3 mg SUBCUT QWEEK (unknown) (no (unknown) (unknown) famotidine 40 mg (units (unknown) date) tablet 40 mg PO unknown) DAILY #90 tabs 12/24/20 [Rx Confirmed 12/27/21] (unknown) (no (unknown) (unknown) fluticasone (units (un known) date) propionate 50 unknown) mcg/actuation nasal spray,suspension See Rx (unknown) (no (unknown) (unknown) furosemide 40 mg (units (unknown) date) tablet 80 mg PO unknown) DAILY #180 tabs 12/09/21 [Rx Confirmed (unknown) (no (unknown) (unknown) gabapentin 600 mg (units (unknown) date) tablet 1,200 mg PO unknown) TID #360 tabs 12/30/19 [Rx Confirmed (unknown) (no (unknown) (unknown) have occurred. If (units (unknown) date) there are any unknown) questions, please contact the Medical Records (unknown) (no (unknown) (unknown) hydrocodone 10 (units (unknown) date) mg-acetaminophen unknown) 325 mg tablet 1 - 2 tab PO Q4H PRN pain #180 (unknown) (no (unknown) (unknown) insulin (units (unkno wn) date) unknown) (unknown) (no (unknown) (unknown) insulin glargine (units (unknown) date) 100 unit/mL (3 mL) unknown) subcutaneous pen (Lantus Solostar U-100 (unknown) (no (unknown) (unknown) insulin lispro 100 (units (unknown) date) unit/mL unknown) subcutaneous pen (Humalog KwikPen (U-100) Insulin) (unknown) (no (unknown) (unknown) ketoconazole 2 % (units (unknown) date) shampoo 1 applic unknown) topical Q2W 12/27/21 [History Confirmed (unknown) (no (unknown) (unknown) latex gloves #500 (units (unknown) date) ea 10/24/19 [Rx unknown) Confirmed 12/27/21] (unknown) (no (unknown) (unknown) lorazepam 1 mg (units (unknown) date) tablet 1 mg PO unknown) DAILY PRN seizure like activity #20 tabs 12/15/21 (unknown) (no (unknown) (unknown) losartan 100 mg (units (unknown) date) tablet 100 mg PO unknown) QDAY #90 tabs 02/10/21 [Rx Confirmed 12/27/21] (unknown) (no (unknown) (unknown) may occur. (units (unk nown) date) Occasional unknown) wrong-word or 'sound-alike' substitutions may have (unknown) (no (unknown) (unknown) metformin 1,000 mg (units (unknown) date) tablet 1,000 mg PO unknown) BID 03/15/20 [History Confirmed 12/27/21] (unknown) (no (unknown) (unknown) metolazone 2.5 mg (units (unknown) date) tablet 2.5 mg PO Q unknown) OTHER DAY #16 tabs 12/09/21 [Rx Confirmed (unknown) (no (unknown) (unknown) [id number] (units (unknown) date) -thonzonm 3.3 mg-3 unknown) mg-10 mg-0.5 mg/mL ear drops,susp (unknown) (no (unknown) (unknown) occurred due to (units (unknown) date) the inherent unknown) limitations of voice recognition software. Please (unknown) (no (unknown) (unknown) omeprazole 20 mg (units (unknown) date) capsule,delayed unknown) release 20 mg PO BID #180 caps 12/09/21 [Rx (unknown) (no (unknown) (unknown) oxycodone (units (unkn own) date) [OXYCODONE] Allergy unknown) (Severe, Verified 12/27/21 14:58) (unknown) (no (unknown) (unknown) potassium chloride (units (unknown) date) 20 mEq unknown) tablet,extended release(part/cryst) 20 meq PO BID (unknown) (no (unknown) (unknown) primidone 50 mg (units (unknown) date) tablet 50 - 100 mg unknown) PO BID 05/11/21 [History Confirmed 12/27/21] (unknown) (no (unknown) (unknown) read the note (units ( unknown) date) carefully and unknown) recognize, using context, where these substitutions (unknown) (no (unknown) (unknown) software. Although (units (unknown) date) every effort is unknown) made to edit content, technical manager errors (unknown) (no (unknown) (unknown) sucralfate 1 gram (units (unknown) date) tablet 1 g PO ACHS unknown) #360 tabs 09/12/21 [Rx Confirmed 12/27/21] (unknown) (no (unknown) (unknown) tabs 12/20/21 [Rx (units (unknown) date) Confirmed 12/27/21] unknown) (unknown) (no (unknown) (unknown) tamsulosin 0.4 mg (units (unknown) date) capsule 0.4 mg PO unknown) DAILY 12/27/21 [History Confirmed 12/27/21] (unknown) (no (unknown) (unknown) tramadol 50 mg PO (units (unknown) date) TID PRN 90 tabs 0RF unknown) pain (unknown) (no (unknown) (unknown) tramadol 50 mg (units (unknown) date) tablet 50 mg PO TID unknown) PRN pain #90 tabs 12/27/21 [Rx Confirmed (unknown) (no (unknown) (unknown) trazodone 50 mg (units (unknown) date) tablet 50 mg PO unknown) BEDTIME #90 tabs 09/12/21 [Rx Confirmed (unknown) (no (unknown) (unknown) x1 week ago fell (units (unknown) date) on knees. unknown) Result panel 8 (unknown) (no (unknown) (unknown) (no value) (units (unk nown) date) unknown) (unknown) (no (unknown) (unknown) Medications: (units (u nknown) date) unknown) (unknown) (no (unknown) (unknown) Status: Chronic (units (unknown) date) unknown) (unknown) (no (unknown) (unknown) (no value) (units (unk nown) date) unknown) (unknown) (no (unknown) (unknown) (no value) (units (unk nown) date) unknown) (unknown) (no (unknown) (unknown) 12/27/21 (units (unkno wn) date) unknown) (unknown) (no (unknown) (unknown) 12/27/21 1540 (units ( unknown) date) unknown) (unknown) (no (unknown) (unknown) 15:06 (units (unkno wn) date) unknown) (unknown) (no (unknown) (unknown) ANAPHYLAXIS/PERCOC (units (unknown) date) ET. No Tylenol unknown) allergy (unknown) (no (unknown) (unknown) [place] (units ( unknown) date) [id number] unknown) (unknown) (no (unknown) (unknown) Family history of (units (unknown) date) type 2 diabetes unknown) mellitus (unknown) (no (unknown) (unknown) [facility]) (unknown) (no (unknown) (unknown) Internal Medicine (units (unknown) date) Office Visit unknown) (unknown) (no (unknown) (unknown) Signed (units (unkno wn) date) unknown) (unknown) (no (unknown) (unknown) Take 2 tablets by (units (unknown) date) mouth every day. 40 unknown) mEq (2 x 20 mEq) PO QDAY 180 tabs 3RF (unknown) (no (unknown) (unknown) (no value) (units (unk nown) date) unknown) (unknown) (no (unknown) (unknown) (1) Restrictive (units (unknown) date) lung disease: unknown) (unknown) (no (unknown) (unknown) (2) Prostate (units (u nknown) date) cancer: unknown) (unknown) (no (unknown) (unknown) (3) Morbid (units (unk nown) date) obesity: unknown) (unknown) (no (unknown) (unknown) (4) Acute pain of (units (unknown) date) left knee: unknown) (unknown) (no (unknown) (unknown) (Cortisporin-TC) 3 (units (unknown) date) drop EAR-LEFT TID unknown) #10 mL 03/15/20 [Rx Confirmed 12/27/21] (unknown) (no (unknown) (unknown) [id number] (units (unkno wn) date) unknown) (unknown) (no (unknown) (unknown) 12/27/21 (units (unkno wn) date) unknown) (unknown) (no (unknown) (unknown) 12/27/21 [History (units (unknown) date) Confirmed 12/27/21] unknown) (unknown) (no (unknown) (unknown) 12/27/21] (units (unkn own) date) unknown) (unknown) (no (unknown) (unknown) Age/Sex: 61 / M (units (unknown) date) Date of Service: unknown) (unknown) (no (unknown) (unknown) Allergies (units (unkn own) date) unknown) (unknown) (no (unknown) (unknown) Assessment + Plan (units (unknown) date) unknown) (unknown) (no (unknown) (unknown) Attending Dr: Jeremiah (units (unknown) date) Shantell Leal MD unknown) (unknown) (no (unknown) (unknown) BMI 51.6 (units (un known) date) unknown) (unknown) (no (unknown) (unknown) BP 124/82 (units (u nknown) date) unknown) (unknown) (no (unknown) (unknown) BPH w urinary (units ( unknown) date) obs/LUTS unknown) (unknown) (no (unknown) (unknown) Blood Pressure (units (unknown) date) Location Lt unknown) brachial (unknown) (no (unknown) (unknown) CA (units (unkno wn) date) PANTOTHENATE/FOLIC unknown) ACID/VIT (MULTIVITAMIN) 1 tab PO Q DAY ##0 03/21/11 (unknown) (no (unknown) (unknown) Carpal tunnel (units ( unknown) date) syndrome unknown) (unknown) (no (unknown) (unknown) Changed (units (unkno wn) date) unknown) (unknown) (no (unknown) (unknown) Chief Complaint: (units (unknown) date) Follow-up unknown) (unknown) (no (unknown) (unknown) Confirmed (units (unkn own) date) 12/27/21] unknown) (unknown) (no (unknown) (unknown) : 1960 (units (unknown) date) Acct:[id number] unknown) (unknown) (no (unknown) (unknown) Dept at (units (unkno wn) date) . unknown) (unknown) (no (unknown) (unknown) Diabetic (units (unkno wn) date) polyneuropathy unknown) associated with type 2 diabetes mellitus (05/27/15) (unknown) (no (unknown) (unknown) Disabled Parking (units (unknown) date) #1 ea 06/26/19 [Rx unknown) Confirmed 12/27/21] (unknown) (no (unknown) (unknown) Discuss Knees (units ( unknown) date) unknown) (unknown) (no (unknown) (unknown) Documented By: (units (unknown) date) Jeremiah Leal MD unknown) 12/27/21 1458 (unknown) (no (unknown) (unknown) Erectile (units (unkno wn) date) dysfunction unknown) (unknown) (no (unknown) (unknown) Essential (units (unkn own) date) hypertension unknown) (03/21/11) (unknown) (no (unknown) (unknown) Family History (units (unknown) date) (Reviewed 10/18/21 unknown) @ 14:19 by Margaret Pires MD) (unknown) (no (unknown) (unknown) From potassium (units (unknown) date) chloride ER unknown) (unknown) (no (unknown) (unknown) Gastroesophageal (units (unknown) date) reflux disease with unknown) esophagitis (05/15/16) (unknown) (no (unknown) (unknown) Glucose: Home (units ( unknown) date) Monitor dev ##1 unknown) 04/03/16 [Rx Confirmed 12/27/21] (unknown) (no (unknown) (unknown) Glucose: Test (units ( unknown) date) Strips #100 ea unknown) 01/06/21 [Rx Confirmed 12/27/21] (unknown) (no (unknown) (unknown) He does have an (units (unknown) date) appointment unknown) upcoming with Pulmonary Medicine he will keep that (unknown) (no (unknown) (unknown) Height 6 ft (units (unknown) date) unknown) (unknown) (no (unknown) (unknown) History of knee (units (unknown) date) replacement unknown) (unknown) (no (unknown) (unknown) History of (units (unk nown) date) nephrolithiasis unknown) (unknown) (no (unknown) (unknown) 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 (03/21/11) (unknown) (no (unknown) (unknown) Instructions (units (u nknown) date) .Route .COMPLEX #16 unknown) grams 11/18/21 [Rx Confirmed 12/27/21] (unknown) (no (unknown) (unknown) Insulin) 78 unit (units (unknown) date) SUBCUT BID 07/19/21 unknown) [History Confirmed 12/27/21] (unknown) (no (unknown) (unknown) Intake (units (unkno wn) date) unknown) (unknown) (no (unknown) (unknown) Intake Note: (units (u nknown) date) unknown) (unknown) (no (unknown) (unknown) Intake performed (units (unknown) date) by: Maria L Wallis unknown) (unknown) (no (unknown) (unknown) Intake- Clincial (units (unknown) date) Staff unknown) (unknown) (no (unknown) (unknown) Lancets dev (units (un known) date) intradermal BID unknown) ##200 12/01/16 [Rx Confirmed 12/27/21] (unknown) (no (unknown) (unknown) Left-sided low (units (unknown) date) back pain with unknown) left-sided sciatica (04/27/15) (unknown) (no (unknown) (unknown) Loc: [facility] (units (unkno wn) date) unknown) (unknown) (no (unknown) (unknown) Lower urinary (units ( unknown) date) tract symptoms unknown) (LUTS) (unknown) (no (unknown) (unknown) Medical History (units (unknown) date) (Reviewed 10/18/21 unknown) @ 14:19 by Margaret Pires MD) (unknown) (no (unknown) (unknown) Medications (units (un known) date) unknown) (unknown) (no (unknown) (unknown) Mixed (units (unkno wn) date) hyperlipidemia unknown) (03/21/11) (unknown) (no (unknown) (unknown) Morbid obesity (units (unknown) date) unknown) (unknown) (no (unknown) (unknown) Not yet been seen (units (unknown) date) by Pulmonary unknown) Medicine (unknown) (no (unknown) (unknown) Note (units (unkno wn) date) unknown) (unknown) (no (unknown) (unknown) Note: (units (unkno wn) date) unknown) (unknown) (no (unknown) (unknown) Notes (units (unkno wn) date) unknown) (unknown) (no (unknown) (unknown) Nothing else new (units (unknown) date) or different unknown) ongoing with him (unknown) (no (unknown) (unknown) Obstructive sleep (units (unknown) date) apnea syndrome unknown) (03/21/11) (unknown) (no (unknown) (unknown) Okay to refill (units (unknown) date) tramadol at his unknown) request today (unknown) (no (unknown) (unknown) On exam patient (units (unknown) date) has no real point unknown) tenderness on his left knee nor there any (unknown) (no (unknown) (unknown) Oxygen Delivery (units (unknown) date) Method room air unknown) (unknown) (no (unknown) (unknown) PFSH (units (unkno wn) date) unknown) (unknown) (no (unknown) (unknown) Patient is here in (units (unknown) date) followup unknown) (unknown) (no (unknown) (unknown) Patient: (units (unkno wn) date) Shine Fischer unknown) MR#: [id number] (unknown) (no (unknown) (unknown) Peripheral edema (units (unknown) date) (05/27/15) unknown) (unknown) (no (unknown) (unknown) Plan (units (unkno wn) date) unknown) (unknown) (no (unknown) (unknown) Position (units (unkno wn) date) Sitting unknown) (unknown) (no (unknown) (unknown) Power Lift Chair (units (unknown) date) #1 ea 12/03/20 [Rx unknown) Confirmed 12/27/21] (unknown) (no (unknown) (unknown) Primary (units (unkno wn) date) osteoarthritis unknown) involving multiple joints (11/11/13) (unknown) (no (unknown) (unknown) Primary (units (unkno wn) date) osteoarthritis of unknown) both knees (02/26/17) (unknown) (no (unknown) (unknown) Prostate cancer (units (unknown) date) unknown) (unknown) (no (unknown) (unknown) Prostatic ductal (units (unknown) date) adenocarcinoma unknown) (unknown) (no (unknown) (unknown) Pulse 98 H (units ( unknown) date) unknown) (unknown) (no (unknown) (unknown) Pulse Oximetry (%) (units (unknown) date) 96 unknown) (unknown) (no (unknown) (unknown) Pulse Source (units (u nknown) date) Monitor unknown) (unknown) (no (unknown) (unknown) Reason For Visit (units (unknown) date) unknown) (unknown) (no (unknown) (unknown) Recheck Meds (units (u nknown) date) unknown) (unknown) (no (unknown) (unknown) Refill Tramadol. (units (unknown) date) unknown) (unknown) (no (unknown) (unknown) Refilled (units (unkno wn) date) unknown) (unknown) (no (unknown) (unknown) Restrictive lung (units (unknown) date) disease unknown) (unknown) (no (unknown) (unknown) Review/Discuss. (units (unknown) date) unknown) (unknown) (no (unknown) (unknown) See Rx (units (unkno wn) date) Instructions SUBCUT unknown) TID 06/04/20 [History Confirmed 12/27/21] (unknown) (no (unknown) (unknown) Signed By: (units (unk nown) date) <Electronically unknown) signed by Jeremiah Leal MD> (unknown) (no (unknown) (unknown) Since I saw him (units (unknown) date) last he fell at unknown) home outdoors on to some gravel landing on both (unknown) (no (unknown) (unknown) Smoking Status: (units (unknown) date) Former smoker unknown) (unknown) (no (unknown) (unknown) Sock Aid #2 ea (units (unknown) date) 02/11/21 [Rx unknown) Confirmed 12/27/21] (unknown) (no (unknown) (unknown) Status post (units (un known) date) tonsillectomy and unknown) adenoidectomy (unknown) (no (unknown) (unknown) Surgical History (units (unknown) date) (Reviewed 10/18/21 unknown) @ 14:19 by Margaret Pires MD) (unknown) (no (unknown) (unknown) TIA (transient (units (unknown) date) ischemic attack) unknown) (unknown) (no (unknown) (unknown) This note may have (units (unknown) date) been all or unknown) partially generated using voice recognition (unknown) (no (unknown) (unknown) To potassium (units (u nknown) date) chloride ER 20 mEq unknown) PO BID (unknown) (no (unknown) (unknown) Tobacco + (units (unkn own) date) Substance Use unknown) (unknown) (no (unknown) (unknown) Tobacco Status (units (unknown) date) unknown) (unknown) (no (unknown) (unknown) Type 2 diabetes (units (unknown) date) mellitus with unknown) hyperglycemia, with long-term current use of (unknown) (no (unknown) (unknown) Type 2 diabetes (units (unknown) date) mellitus with unknown) hypoglycemia without coma (04/27/15) (unknown) (no (unknown) (unknown) Unknown Family (units (unknown) date) history of breast unknown) cancer (unknown) (no (unknown) (unknown) Venous (units (unkno wn) date) insufficiency unknown) (unknown) (no (unknown) (unknown) Venous stasis (units ( unknown) date) unknown) (unknown) (no (unknown) (unknown) Visit Reasons: (units (unknown) date) Recheck Meds unknown) (unknown) (no (unknown) (unknown) Vitals (units (unkno wn) date) unknown) (unknown) (no (unknown) (unknown) Vitamin D (units (unkn own) date) deficiency unknown) (unknown) (no (unknown) (unknown) Weight 172.819 (units (unknown) date) kg unknown) (unknown) (no (unknown) (unknown) [History Confirmed (units (unknown) date) 12/27/21] unknown) (unknown) (no (unknown) (unknown) [Rx Confirmed (units ( unknown) date) 12/27/21] unknown) (unknown) (no (unknown) (unknown) acetaminophen (units ( unknown) date) [From Percocet] unknown) Allergy (Verified 12/27/21 14:58) (unknown) (no (unknown) (unknown) allopurinol 100 mg (units (unknown) date) tablet 100 mg PO unknown) DAILY #90 tabs 09/12/21 [Rx Confirmed (unknown) (no (unknown) (unknown) and I will plan to (units (unknown) date) see him back in 2-3 unknown) months sooner as needed (unknown) (no (unknown) (unknown) anywhere there is (units (unknown) date) no redness no unknown) changes or bruising he can see and is admittedly (unknown) (no (unknown) (unknown) atorvastatin 40 mg (units (unknown) date) tablet 40 mg PO unknown) BEDTIME #90 tabs 09/12/21 [Rx Confirmed (unknown) (no (unknown) (unknown) bicalutamide 50 mg (units (unknown) date) tablet (Casodex) 50 unknown) mg PO DAILY #30 tabs 02/11/21 [Rx (unknown) (no (unknown) (unknown) clobetasol 0.05 % (units (unknown) date) topical cream unknown) (Temovate) 0.05 % topical PRN ##60 12/30/19 [Rx (unknown) (no (unknown) (unknown) considered a (units (u nknown) date) possible tibial unknown) plateau fracture but I do not believe that to be (unknown) (no (unknown) (unknown) cyclobenzaprine 10 (units (unknown) date) mg tablet 10 mg PO unknown) TIDP PRN muscle spasm #90 tabs 12/30/19 (unknown) (no (unknown) (unknown) dulaglutide 3 (units ( unknown) date) mg/0.5 mL unknown) subcutaneous pen injector (Trulicity) 3 mg SUBCUT QWEEK (unknown) (no (unknown) (unknown) effusion. I doubt (units (unknown) date) there is any real unknown) bony injury maybe some bruising I (unknown) (no (unknown) (unknown) famotidine 40 mg (units (unknown) date) tablet 40 mg PO unknown) DAILY #90 tabs 12/24/20 [Rx Confirmed 12/27/21] (unknown) (no (unknown) (unknown) fluticasone (units (un known) date) propionate 50 unknown) mcg/actuation nasal spray,suspension See Rx (unknown) (no (unknown) (unknown) furosemide 40 mg (units (unknown) date) tablet 80 mg PO unknown) DAILY #180 tabs 12/09/21 [Rx Confirmed (unknown) (no (unknown) (unknown) gabapentin 600 mg (units (unknown) date) tablet 1,200 mg PO unknown) TID #360 tabs 12/30/19 [Rx Confirmed (unknown) (no (unknown) (unknown) have occurred. If (units (unknown) date) there are any unknown) questions, please contact the Medical Records (unknown) (no (unknown) (unknown) hydrocodone 10 (units (unknown) date) mg-acetaminophen unknown) 325 mg tablet 1 - 2 tab PO Q4H PRN pain #180 (unknown) (no (unknown) (unknown) insulin (units (unkno wn) date) unknown) (unknown) (no (unknown) (unknown) insulin glargine (units (unknown) date) 100 unit/mL (3 mL) unknown) subcutaneous pen (Lantus Solostar U-100 (unknown) (no (unknown) (unknown) insulin lispro 100 (units (unknown) date) unit/mL unknown) subcutaneous pen (Humalog KwikPen (U-100) Insulin) (unknown) (no (unknown) (unknown) ketoconazole 2 % (units (unknown) date) shampoo 1 applic unknown) topical Q2W 06/14/22 [History Confirmed (unknown) (no (unknown) (unknown) latex gloves #500 (units (unknown) date) ea 10/24/19 [Rx unknown) Confirmed 12/27/21] (unknown) (no (unknown) (unknown) lorazepam 1 mg (units (unknown) date) tablet 1 mg PO unknown) DAILY PRN seizure like activity #20 tabs 12/15/21 (unknown) (no (unknown) (unknown) losartan 100 mg (units (unknown) date) tablet 100 mg PO unknown) QDAY #90 tabs 02/10/21 [Rx Confirmed 12/27/21] (unknown) (no (unknown) (unknown) may occur. (units (unk nown) date) Occasional unknown) wrong-word or 'sound-alike' substitutions may have (unknown) (no (unknown) (unknown) metformin 1,000 mg (units (unknown) date) tablet 1,000 mg PO unknown) BID 03/15/20 [History Confirmed 12/27/21] (unknown) (no (unknown) (unknown) metolazone 2.5 mg (units (unknown) date) tablet 2.5 mg PO Q unknown) OTHER DAY #16 tabs 12/09/21 [Rx Confirmed (unknown) (no (unknown) (unknown) [id number] (units (unknown) date) -thonzonm 3.3 mg-3 unknown) mg-10 mg-0.5 mg/mL ear drops,susp (unknown) (no (unknown) (unknown) occurred due to (units (unknown) date) the inherent unknown) limitations of voice recognition software. Please (unknown) (no (unknown) (unknown) of his knees. The (units (unknown) date) right knee is unknown) mostly better but the left knee still fairly (unknown) (no (unknown) (unknown) omeprazole 20 mg (units (unknown) date) capsule,delayed unknown) release 20 mg PO BID #180 caps 12/09/21 [Rx (unknown) (no (unknown) (unknown) oxycodone (units (unkn own) date) [OXYCODONE] Allergy unknown) (Severe, Verified 12/27/21 14:58) (unknown) (no (unknown) (unknown) painful on the (units (unknown) date) medial edge of the unknown) patella. There is no break of the skin (unknown) (no (unknown) (unknown) potassium chloride (units (unknown) date) 20 mEq unknown) tablet,extended release(part/cryst) 20 meq PO BID (unknown) (no (unknown) (unknown) present either he (units (unknown) date) ambulates without unknown) real difficulty and again there is no real (unknown) (no (unknown) (unknown) primidone 50 mg (units (unknown) date) tablet 50 - 100 mg unknown) PO BID 05/11/21 [History Confirmed 12/27/21] (unknown) (no (unknown) (unknown) read the note (units ( unknown) date) carefully and unknown) recognize, using context, where these substitutions (unknown) (no (unknown) (unknown) slowly getting (units (unknown) date) better unknown) (unknown) (no (unknown) (unknown) software. Although (units (unknown) date) every effort is unknown) made to edit content, technical manager errors (unknown) (no (unknown) (unknown) sucralfate 1 gram (units (unknown) date) tablet 1 g PO ACHS unknown) #360 tabs 09/12/21 [Rx Confirmed 12/27/21] (unknown) (no (unknown) (unknown) tabs 12/20/21 [Rx (units (unknown) date) Confirmed 12/27/21] unknown) (unknown) (no (unknown) (unknown) tamsulosin 0.4 mg (units (unknown) date) capsule 0.4 mg PO unknown) DAILY 12/27/21 [History Confirmed 12/27/21] (unknown) (no (unknown) (unknown) tenderness. I (units (unknown) date) think therefore unknown) this likely heal on its own though given enough (unknown) (no (unknown) (unknown) time measured in (units (unknown) date) weeks unknown) (unknown) (no (unknown) (unknown) tramadol 50 mg PO (units (unknown) date) TID PRN 90 tabs 0RF unknown) pain (unknown) (no (unknown) (unknown) tramadol 50 mg (units (unknown) date) tablet 50 mg PO TID unknown) PRN pain #90 tabs 12/27/21 [Rx Confirmed (unknown) (no (unknown) (unknown) trazodone 50 mg (units (unknown) date) tablet 50 mg PO unknown) BEDTIME #90 tabs 09/12/21 [Rx Confirmed (unknown) (no (unknown) (unknown) x1 week ago fell (units (unknown) date) on knees. unknown) Social History date description facility (no date) Ex-smoker (finding) [facility] Vital Signs date measurement value units [id number]+0000 BMI BMI 51.7 kg/m2 22409207099325+0000 BP_diastolic BP_diastolic 68 mm[H g] 95778967299302+0000 BP_systolic BP_systolic 130 mm[Hg] 54252396841137+0000 heart_rate heart_rate 103 /min 63271241233284+0000 height_metric height_metric 182.88 cm [id number]+0000 height_standard height_standard 72 in [id number]+0000 weight_metric weight_metric 78.44 kg [id number]+0000 weight_standard weight_standard 172.93 lb [id number]+0000 BMI BMI 51.6 kg/m2 93971077520470+0000 BP_diastolic BP_diastolic 82 mm[H g] 13472647977629+0000 BP_systolic BP_systolic 124 mm[Hg] 40269390060735+0000 heart_rate heart_rate 98 /min 12055437383718+0000 height_metric height_metric 182.88 cm 28229075913314+0000 height_standard height_standard 72 in [id number]+0000 weight_metric weight_metric 78.39 kg 35104588116194+0000 weight_standard weight_standard 172.82 lb
[2022-01-30 13:31] LABS: BASOPHILS % (AUTO) 0.6 %; EOSINOPHILS # (AUTO) 0.1 10^3/uL (0.0-0.7); EOSINOPHILS % (AUTO) 1.5 %; HCT - HEMATOCRIT 40.1 % (42.0-52.0); HGB - HEMOGLOBIN 13.3 g/dL (14.0-18.0); LYMPHOCYTES # (AUTO) 1.2 10^3/uL (1.5-3.5); LYMPHOCYTES % (AUTO) 18.3 %; MEAN CORPUSCULAR HEMOGLOBIN 29.1 pg (27.0-31.0); MEAN CORPUSCULAR HGB CONC 33.2 g/dL (32.0-36.0); MEAN CORPUSCULAR VOLUME 87.7 fL (80.0-94.0); MEAN PLATELET VOLUME 8.9 fL (7.4-11.4); MONOCYTES # (AUTO) 0.5 10^3/uL (0.0-1.0); NEUTROPHILS # (AUTO) 4.8 10^3/uL (1.5-6.6); NEUTROPHILS % (AUTO) 71.2 %; PLT - PLATELET COUNT 296 10^3/uL (130-450); RED BLOOD COUNT 4.57 10^6/uL (4.70-6.10); RED CELL DISTRIBUTION WIDTH 13.5 % (12.0-15.0); WHITE BLOOD COUNT 6.7 x10^3/uL (4.8-10.8)
--- NOTE | 2022-01-30 13:43 | XRAY Report ---
PROCEDURE: Chest 1 View X-Ray INDICATIONS: Chest Pain TECHNIQUE: One view of the chest was acquired. COMPARISON: Chest x-ray 08/21/2019 FINDINGS: Surgical changes and devices: None. Lungs and pleura: No pleural effusions or pneumothorax. Mild increased pulmonary vascularity. Mediastinum: Mediastinal contours appear normal. Heart size is enlarged. Bones and chest wall: No suspicious bony lesions. Overlying soft tissues appear unremarkable. IMPRESSION: Increased vascularity suggestive of edema. Reviewed by: Verona Reed MD on 01/30/2022 1:42 PM PDT Approved by: Verona Reed MD on 01/30/2022 1:42 PM PDT Station ID: [id number]
[2022-01-30 13:46] LABS: ALBUMIN 3.9 g/dL (3.2-5.5); ALBUMIN/GLOBULIN RATIO 1.1 (1.0-2.2); BILIRUBIN,TOTAL 0.4 mg/dL (0.2-1.0); CALCIUM 9.4 mg/dL (8.5-10.3); CREATININE 1.6 mg/dL (0.6-1.2); MAGNESIUM 1.5 mg/dL (1.7-2.8); PHOSPHORUS 4.4 mg/dL (2.5-4.6); POTASSIUM 4.1 mmol/L (3.5-5.0); TOTAL PROTEIN 7.3 g/dL (6.7-8.2)
[2022-01-30] MEDS ORDERED: SODIUM CHLORIDE 0.9% 1,000 ML IV STA (13:58)
[2022-01-30] MEDS ORDERED: MAGNESIUM SULFATE 2 GRAM 2 GM/50 ML BAG IV ONE (13:58)
[2022-01-30 15:14] VITALS: BP 134/75
== END 2022-01-30 15:30 | disposition home or self-care (01) ==
LOC: ED 12:55
DX: E86.0 Dehydration (principal); E83.42 Hypomagnesemia; E11.65 Type 2 diabetes mellitus with hyperglycemia; Z79.4 Long term (current) use of insulin; Z87.891 Personal history of nicotine dependence
CPT/HCPCS: 36415; 80053; 83690; 83735; 84100; 84484; 85025; 93005; 96374; 99284

== ENCOUNTER 2022-03-29 15:22 | Outpatient (CLI) | payer MEDICARE, MEDICAID ==
[2022-03-29 15:56] LABS: BUN - BLOOD UREA NITROGEN 21 mg/dL (6-20); CALCIUM 9.4 mg/dL (8.5-10.3); CARBON DIOXIDE - CO2 25 mmol/L (21-32); CHLORIDE 102 mmol/L (101-111); CHOLESTEROL 159 mg/dL; CREATININE 1.3 mg/dL (0.6-1.2); GFR - MDRD 56 (>89); GLUCOSE 239 mg/dL (70-100); HDL CHOLESTEROL 32 mg/dL; LDL CHOLESTEROL,CALCULATED 70 mg/dL; LDL/HDL RATIO 2.2 (<3.6); POTASSIUM 4.5 mmol/L (3.5-5.0); SODIUM 139 mmol/L (135-145); TRIGLYCERIDES 287 mg/dL; VLDL CHOLESTEROL 57 mg/dL
[2022-03-29 16:04] LABS: CREATININE,URINE 151.9 mg/dL; MICROALBUMIN,URINE 92.5 mg/dL (0-300.0)
[2022-03-29 20:17] LABS: ESTIMATED AVERAGE GLUCOSE 200 mg/dL (70-100); HEMOGLOBIN A1c% 8.6 % (4.27-6.07)
== END 2022-03-29 15:23 | disposition home or self-care (01) ==
LOC: LAB 15:22
PROVIDERS: ATTEND Nurse Practitioner Family
DX: E11.65 Type 2 diabetes mellitus with hyperglycemia (principal); Z79.4 Long term (current) use of insulin
CPT/HCPCS: 36415; 80048; 80061; 82043; 82570; 83036; 83721; 84443

== ENCOUNTER 2022-06-06 23:52 | Outpatient (CLI) | payer MEDICARE, MEDICAID | END 2022-06-06 23:53 | disposition critical access hospital (66) | LOC: EMS 23:52 | DX: R25.2 Cramp and spasm (principal); R25.1 Tremor, unspecified; R26.2 Difficulty in walking, not elsewhere classified; R06.02 Shortness of breath | CPT/HCPCS: A0425; A0429 ==

== ENCOUNTER 2022-06-07 00:22 | Emergency (ER) | payer MEDICARE, MEDICAID ==
[2022-06-07] MEDS ORDERED: SODIUM CHLORIDE 0.9% 1,000 ML IV STA (00:47)
[2022-06-07] MEDS ORDERED: LORazepam 2 MG/ML VIAL IVP STA (00:47)
[2022-06-07 00:58] LABS: BASOPHILS % (AUTO) 0.6 %; EOSINOPHILS # (AUTO) 0.1 10^3/uL (0.0-0.7); EOSINOPHILS % (AUTO) 1.5 %; HCT - HEMATOCRIT 38.5 % (42.0-52.0); HGB - HEMOGLOBIN 12.2 g/dL (14.0-18.0); LYMPHOCYTES # (AUTO) 1.3 10^3/uL (1.5-3.5); MEAN CORPUSCULAR HEMOGLOBIN 28.4 pg (27.0-31.0); MEAN CORPUSCULAR HGB CONC 31.7 g/dL (32.0-36.0); MEAN CORPUSCULAR VOLUME 89.5 fL (80.0-94.0); MEAN PLATELET VOLUME 9.5 fL (7.4-11.4); MONOCYTES # (AUTO) 0.6 10^3/uL (0.0-1.0); MONOCYTES % (AUTO) 8.8 %; NEUTROPHILS # (AUTO) 4.5 10^3/uL (1.5-6.6); NEUTROPHILS % (AUTO) 68.5 %; PLT - PLATELET COUNT 288 10^3/uL (130-450); RED CELL DISTRIBUTION WIDTH 13.6 % (12.0-15.0); WHITE BLOOD COUNT 6.6 x10^3/uL (4.8-10.8)
[2022-06-07 01:10] LABS: ALBUMIN 3.5 g/dL (3.2-5.5); ALKALINE PHOSPHATASE 94 IU/L (42-121); ALT ALANINE AMINOTRANSFERASE 41 IU/L (10-60); AST ASPARTATE AMINOTRANSFERASE 61 IU/L (10-42); BILIRUBIN,TOTAL 0.3 mg/dL (0.2-1.0); BUN - BLOOD UREA NITROGEN 42 mg/dL (6-20); CALCIUM 8.5 mg/dL (8.5-10.3); CARBON DIOXIDE - CO2 24 mmol/L (21-32); CHLORIDE 99 mmol/L (101-111); ETOH - ETHANOL < 5.0 mg/dL; GFR - MDRD 34 (>89); GLUCOSE 187 mg/dL (70-100); MAGNESIUM 1.9 mg/dL (1.7-2.8); POTASSIUM 4.2 mmol/L (3.5-5.0); SODIUM 136 mmol/L (135-145); TOTAL PROTEIN 7.1 g/dL (6.7-8.2)
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
[2022-06-07 02:03] VITALS: BP 117/74
== END 2022-06-07 02:15 | disposition home or self-care (01) ==
LOC: EDUNIT# → ED 00:22
DX: Z04.1 Encounter for examination and observation following transport accident (principal); V47.5XXA Car driver injured in collision with fixed or stationary object in traffic accident, initial encounter; R25.1 Tremor, unspecified; N17.9 Acute kidney failure, unspecified; Y92.410 Unspecified street and highway as the place of occurrence of the external cause; I10 Essential (primary) hypertension; E11.9 Type 2 diabetes mellitus without complications; Z79.4 Long term (current) use of insulin; Z79.82 Long term (current) use of aspirin
CPT/HCPCS: 36415; 80053; 83735; 85025; 96361; 96374; 99283; G0480; J2060; 80320

== ENCOUNTER 2022-08-16 16:07 | Outpatient (CLI) | payer MEDICARE, MEDICAID ==
[2022-08-16 16:52] LABS: BUN - BLOOD UREA NITROGEN 22 mg/dL (6-20); CALCIUM 9.2 mg/dL (8.5-10.3); CARBON DIOXIDE - CO2 25 mmol/L (21-32); CHLORIDE 99 mmol/L (101-111); CHOLESTEROL 152 mg/dL; CREATININE 1.3 mg/dL (0.6-1.2); GFR - MDRD 56 (>89); GLUCOSE 214 mg/dL (70-100); HDL CHOLESTEROL 38 mg/dL; LDL CHOLESTEROL,CALCULATED 77 mg/dL; POTASSIUM 4.2 mmol/L (3.5-5.0); SODIUM 138 mmol/L (135-145); TRIGLYCERIDES 184 mg/dL; VLDL CHOLESTEROL 37 mg/dL
[2022-08-16 20:39] LABS: ESTIMATED AVERAGE GLUCOSE 200 mg/dL (70-100); HEMOGLOBIN A1c% 8.6 % (4.27-6.07)
== END 2022-08-16 16:08 | disposition home or self-care (01) ==
LOC: LAB 16:07
PROVIDERS: ATTEND Specialist
DX: C61 Malignant neoplasm of prostate (principal); R39.9 Unspecified symptoms and signs involving the genitourinary system; E11.65 Type 2 diabetes mellitus with hyperglycemia; Z79.4 Long term (current) use of insulin
CPT/HCPCS: 36415; 80048; 80061; 82043; 82570; 83036; 83721; 84153; 84443

== ENCOUNTER 2022-08-18 08:00 | Outpatient (CLI) | payer MEDICARE, MEDICAID ==
[2022-08-18 17:04] LABS: CREATININE,URINE 155.8 mg/dL; MICROALBUM/CREATININE RATIO,UR 333.1 ug/mg (<30.0); MICROALBUMIN,URINE 51.9 mg/dL (0-300.0)
== END 2022-08-18 23:59 | disposition home or self-care (01) ==
LOC: LAB.R 08:00
PROVIDERS: ATTEND Nurse Practitioner Family
DX: E11.65 Type 2 diabetes mellitus with hyperglycemia (principal); Z79.4 Long term (current) use of insulin
CPT/HCPCS: 82043; 82570

== ENCOUNTER 2022-10-03 15:02 | Outpatient (CLI) | payer MEDICARE, MEDICAID ==
[2022-10-03 15:16] LABS: BASOPHILS # (AUTO) 0.1 10^3/uL (0.0-0.1); BASOPHILS % (AUTO) 1.1 %; EOSINOPHILS # (AUTO) 0.2 10^3/uL (0.0-0.7); EOSINOPHILS % (AUTO) 3.5 %; HCT - HEMATOCRIT 40.6 % (42.0-52.0); HGB - HEMOGLOBIN 12.6 g/dL (14.0-18.0); LYMPHOCYTES # (AUTO) 1.7 10^3/uL (1.5-3.5); LYMPHOCYTES % (AUTO) 30.2 %; MEAN CORPUSCULAR HEMOGLOBIN 27.8 pg (27.0-31.0); MEAN CORPUSCULAR VOLUME 89.6 fL (80.0-94.0); MEAN PLATELET VOLUME 8.8 fL (7.4-11.4); MONOCYTES # (AUTO) 0.5 10^3/uL (0.0-1.0); NEUTROPHILS # (AUTO) 3.1 10^3/uL (1.5-6.6); NEUTROPHILS % (AUTO) 55.5 %; PLT - PLATELET COUNT 337 10^3/uL (130-450); RED BLOOD COUNT 4.53 10^6/uL (4.70-6.10); RED CELL DISTRIBUTION WIDTH 14.5 % (12.0-15.0); WHITE BLOOD COUNT 5.7 x10^3/uL (4.8-10.8)
[2022-10-03 15:27] LABS: ALBUMIN 3.8 g/dL (3.2-5.5); BILIRUBIN,TOTAL 0.4 mg/dL (0.2-1.0); CALCIUM 9.7 mg/dL (8.5-10.3); CREATININE 1.5 mg/dL (0.6-1.2); POTASSIUM 4.2 mmol/L (3.5-5.0); TOTAL PROTEIN 7.5 g/dL (6.7-8.2)
== END 2022-10-03 15:03 | disposition home or self-care (01) ==
LOC: LAB 15:02
PROVIDERS: ATTEND Radiology Radiation Oncology
DX: C61 Malignant neoplasm of prostate (principal)
CPT/HCPCS: 36415; 80053; 84153; 85025

== ENCOUNTER 2022-12-21 17:43 | Emergency (ER) | payer MEDICARE, MEDICAID ==
[2022-12-21] MEDS ORDERED: LORazepam 2 MG/ML VIAL IVP STA (18:00)
[2022-12-21] MEDS ORDERED: iohexoL-300 100 ML VIAL ONE (18:02)
--- NOTE | 2022-12-21 18:03 | ED Physician Documentation ---
PD HPI FOCAL NEURO - Stated complaint Stated Complaint: DIZZY/WEAK/CONFUSED - Chief complaint Chief Complaint: Neuro - History obtained from History obtained from: Patient - Additional information Additional information: 62-year-old gentleman with diabetes, history of TIAs on aspirin, terminal prostate cancer and chronic muscle spasms was in his usual state of health eating dinner with friends and developed disequilibrium type dizziness and left- sided weakness starting Between 5 PM and 5:15 PM this evening. He denies headache with this. 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 HEENT: Tonsil/Adenoidectomy - Present Medications Home Medications: Ambulatory Orders Medication Instructions Recorded Confirmed Aspirin [Aspir 81] 81 mg DAILY 09/01/13 01/30/22 Furosemide 80 mg DAILY 09/01/13 01/30/22 Gabapentin [Neurontin] 600 mg PO TID 09/01/13 01/30/22 Hydrocodone/Acetaminophen [Vicodin 1 - 2 tab Q4HR 09/01/13 01/30/22 Hp 10-300 mg Tablet] LORazepam [Ativan] 1 mg PO ONCE PRN 09/01/13 01/30/22 Multivitamin [Multi-Vitamin Daily] 1 tab DAILY 09/01/13 01/30/22 Omeprazole [PriLOSEC] 40 mg DAILY 09/01/13 01/30/22 Potassium Chloride [K-Dur] 40 mg DAILY 09/01/13 01/30/22 allopurinoL [Zyloprim] 100 mg DAILY 09/01/13 01/30/22 traMADol [Ultram] 1 - 2 tab TID 09/01/13 01/30/22 Atorvastatin Calcium 40 mg PO DAILY 12/21/15 01/30/22 Clobetasol Propionate/Emoll 12/21/15 [Clobetasol Emollient 0.05% Crm] Fluticasone Propionat,Microniz 12/21/15 [Fluticasone Propionate Micro] Losartan Potassium 100 mg PO DAILY 12/21/15 01/30/22 Pioglitazone HCl [Actos] 30 mg PO DAILY 12/21/15 01/30/22 Sucralfate 1 gm PO QID 12/21/15 01/30/22 metOLazone [Metolazone] 2.5 mg 12/21/15 Semaglutide [Ozempic] 0 mg SQ 08/21/19 Dulaglutide [Trulicity] 3 mg SQ ONCE 06/07/22 06/07/22 Insulin Glargine [Lantus Solostar] 70 units SUBQ QPM 06/07/22 06/07/22 Insulin Glargine [Lantus Solostar] 78 units SUBQ DAILY 06/07/22 06/07/22 Insulin Lispro [Humalog Kwikpen 20 units SUBQ QPM 06/07/22 06/07/22 U-100] Insulin Lispro [Humalog Kwikpen 26 units SUBQ BID 06/07/22 06/07/22 U-100] Nortriptyline [Pamelor] 10 mg PO QPM 06/07/22 06/07/22 Primidone [Mysoline] 50 mg PO DAILY 06/07/22 06/07/22 Torsemide 20 mg PO DAILY 06/07/22 06/07/22 - Allergies Allergies/Adverse Reactions: Allergies Allergy/AdvReac Type Severity Reaction Status Date / Time acetaminophen [From Percocet] Allergy Respiratory Verified 06/07/22 00:41 oxycodone HCl * Allergy Respiratory Verified 06/07/22 00:41 [From Percocet] - Social History Does the pt smoke?: No Smoking Status: Never smoker Does the pt drink ETOH?: No Does the pt have substance abuse?: No - Immunizations Immunizations are current?: Yes - POLST Patient has POLST: No PD ED PE NORMAL - Vitals Vital signs reviewed: Yes - General General: Alert and oriented X 3, Other (He is having a lot of tremor and muscle spasm that he says is chronic for him) - HEENT HEENT: PERRL, EOMI - Neck Neck: Supple, no meningeal sign, No bony TTP - Cardiac Cardiac: RRR, No murmur - Respiratory Respiratory: No respiratory distress, Clear bilaterally - Abdomen Abdomen: Normal bowel sounds, Soft, Non tender - Back Back: No CVA TTP, No spinal TTP - Derm Derm: Normal color, Warm and dry - Extremities Extremities: No edema, No calf tenderness / cord - Neuro Neuro: Alert and oriented X 3, Normal speech NIHSS - Time Time: 08:00 - Level of Consciousness Level of consciousness: (0) Alert, Keenly responsive LOC Questions: (0) Answers both Q's correct LOC Commands: (0) Performs both correctly - Gaze Best Gaze: (0) Normal - Visual Visual: (0) No loss - Facial Palsy Facial Palsy: (0) Normal, symmetrical movement - Motor Arms (both separate) Motor Arm (right): (0) No drift Motor Arm (left): (0) No drift - Motor Legs (both separate) Motor Leg (right): (0) No drift Motor Leg (left): (2) Some effort against gravity - Limb Ataxia Limb Ataxia: (1) Present in 1 limb (His tremors and muscle spasms make it difficult to assess for ataxia but he does have some potential ataxia but hard to say if it lateralizes.) - Sensory Sensory: (1) Usit-gz-[id number] loss - Best Language Best Language: (0) No aphasia - Dysarthria Dysarthria: (0) Normal - Extinction and Inattention (formally neg Extinction and inattention: (0) No abnormality - Total Score/Results Total Score/Result: 4 Results - Vitals Vitals: Vital Signs - 24 hr 12/21/22 12/21/22 12/21/22 17:54 17:58 18:28 Temperature 36.7 C 36.5 C Heart Rate 104 H 97 94 Respiratory 16 18 16 Rate Blood Pressure 110/70 108/60 97/56 L O2 Saturation 94 94 94 12/21/22 12/21/22 12/21/22 18:30 19:00 19:30 Temperature 36.5 C Heart Rate 90 93 92 Respiratory 16 17 16 Rate Blood Pressure 100/60 112/60 116/61 O2 Saturation 92 95 95 Oxygen O2 Source Room air - Labs Labs: Laboratory Tests 12/21/22 12/21/22 12/21/22 17:48 17:48 17:48 WBC 7.2 RBC 4.35 L Hgb 12.2 L Hct 37.6 L MCV 86.4 MCH 28.0 MCHC 32.4 RDW 14.6 Plt Count 289 MPV 8.6 Neut # (Auto) 4.1 Lymph # (Auto) 2.1 Bay # (Auto) 0.8 Eos # (Auto) 0.2 Baso # (Auto) 0.1 Absolute Nucleated RBC 0.00 Nucleated RBC % 0.0 PT 11.0 INR 1.0 Sodium 138 Potassium 4.2 Chloride 104 Carbon Dioxide 23 Anion Gap 11.0 BUN 24 H Creatinine 1.6 H Estimated GFR (MDRD) 44 L Glucose 146 H POC Whole Bld Glucose Calcium 9.0 Total Bilirubin 0.5 AST 54 H ALT 45 Alkaline Phosphatase 99 Total Protein 7.3 Albumin 3.8 Globulin 3.5 Albumin/Globulin Ratio 1.1 Lipase 36 Ethyl Alcohol < 5.0 12/21/22 17:58 WBC RBC Hgb Hct MCV MCH MCHC RDW Plt Count MPV Neut # (Auto) Lymph # (Auto) Bay # (Auto) Eos # (Auto) Baso # (Auto) Absolute Nucleated RBC Nucleated RBC % PT INR Sodium Potassium Chloride Carbon Dioxide Anion Gap BUN Creatinine Estimated GFR (MDRD) Glucose POC Whole Bld Glucose 149 H Calcium Total Bilirubin AST ALT Alkaline Phosphatase Total Protein Albumin Globulin Albumin/Globulin Ratio Lipase Ethyl Alcohol - Rads (name of study) CTA head/neck Relevant Findings:: Final report received, EMP independent interpretation of test PD Medical Decision Making - ED course Complexity details: reviewed results (Lab work-up demonstrates mild anemia, mild chronic kidney disease, negative blood alcohol level.) ED course: 62-year-old gentleman presents with strokelike symptoms but atypical. There is some lateralization with decreased strength on the left and some mild sensory lo ss on the left. That said his tremor and muscle spasms make exam difficult. Telestroke was activated after initial evaluation. CT angiography and plain CT of the head and neck were normal without evidence of acute stroke. Telestroke physician saw him and feels he is not a candidate for tPA due to recent hematuria related to his prostate cancer, that said to his symptoms are very atypical and further history elucidates that he has had similar episodes in the past which resolved with the administration of IV Ativan and Benadryl. After the administration of Ativan and Benadryl which did help similar symptoms in the past he was all but asymptomatic and requested discharge. At that point his neurologic exam was not focal/nonlateralizing. He still had a bit of a tremor but nothing else. Departure - Departure Disposition: 01 Home, Self Care Clinical Impression: Tremors of nervous system, Stroke-like symptoms Condition: Good Record reviewed to determine appropriate education?: Yes Instructions: ED Spasm Muscle Comments: No evidence of stroke today and your symptoms improved after the administration of Ativan and will. Continue current medications. Follow-up with your primary care physician, next available appointment. Return for new or worsening symptoms.
[2022-12-21 18:05] LABS: BASOPHILS # (AUTO) 0.1 10^3/uL (0.0-0.1); BASOPHILS % (AUTO) 0.8 %; EOSINOPHILS # (AUTO) 0.2 10^3/uL (0.0-0.7); EOSINOPHILS % (AUTO) 2.1 %; HCT - HEMATOCRIT 37.6 % (42.0-52.0); HGB - HEMOGLOBIN 12.2 g/dL (14.0-18.0); LYMPHOCYTES # (AUTO) 2.1 10^3/uL (1.5-3.5); LYMPHOCYTES % (AUTO) 28.7 %; MEAN CORPUSCULAR HGB CONC 32.4 g/dL (32.0-36.0); MEAN CORPUSCULAR VOLUME 86.4 fL (80.0-94.0); MEAN PLATELET VOLUME 8.6 fL (7.4-11.4); MONOCYTES # (AUTO) 0.8 10^3/uL (0.0-1.0); MONOCYTES % (AUTO) 10.7 %; NEUTROPHILS # (AUTO) 4.1 10^3/uL (1.5-6.6); PLT - PLATELET COUNT 289 10^3/uL (130-450); RED BLOOD COUNT 4.35 10^6/uL (4.70-6.10); RED CELL DISTRIBUTION WIDTH 14.6 % (12.0-15.0); WHITE BLOOD COUNT 7.2 x10^3/uL (4.8-10.8)
[2022-12-21 18:16] LABS: ALBUMIN 3.8 g/dL (3.2-5.5); ALBUMIN/GLOBULIN RATIO 1.1 (1.0-2.2); ALKALINE PHOSPHATASE 99 IU/L (42-121); ALT ALANINE AMINOTRANSFERASE 45 IU/L (10-60); AST ASPARTATE AMINOTRANSFERASE 54 IU/L (10-42); BILIRUBIN,TOTAL 0.5 mg/dL (0.2-1.0); BUN - BLOOD UREA NITROGEN 24 mg/dL (6-20); CARBON DIOXIDE - CO2 23 mmol/L (21-32); CHLORIDE 104 mmol/L (101-111); CREATININE 1.6 mg/dL (0.6-1.2); ETOH - ETHANOL < 5.0 mg/dL; GFR - MDRD 44 (>89); GLUCOSE 146 mg/dL (70-100); LIPASE 36 U/L (22-51); POTASSIUM 4.2 mmol/L (3.5-5.0); SODIUM 138 mmol/L (135-145); TOTAL PROTEIN 7.3 g/dL (6.7-8.2)
--- NOTE | 2022-12-21 18:19 | CT Report ---
PROCEDURE: Head W/O Stroke Protocol INDICATIONS: Neuro deficit, acute, stroke suspected TECHNIQUE: Noncontrast 4.5 mm thick angled axial sections acquired from the foramen magnum to the vertex, with c oronal reformats. For radiation dose reduction, the following was used: automated exposure control, adjustment of mA and/or kV according to patient size. COMPARISON: 12/04/2019 FINDINGS: Image quality: Motion degraded CSF spaces: Basal cisterns are patent. Lateral ventricles are symmetric. Volume: Vascular calcifications. Periventricular white matter disease is commonly seen with chronic m icroangiopathy. Volume loss is present. These findings are mild to moderate. Brain: No acute hemorrhage. No large territory loss of ritchie-white differentiation. Craniofacial structures: No displaced fracture. Sinuses are clear. Orbits are intact. Small left par anasal sinus mucous retention cyst. IMPRESSION: No acute intracranial abnormality. Report called to the ED. This study fulfills neurological imaging criteria for inclusion or exclusion of acute stroke therapie s based on available published neurological imaging guidelines. Reviewed by: oRbert Montalvo MD on 12/21/2022 6:18 PM PDT Approved by: Robert Montalvo MD on 12/21/2022 6:18 PM PDT Station ID: [id number]
[2022-12-21] MEDS ORDERED: iohexoL-300 100 ML VIAL IVP ONE (18:22)
--- NOTE | 2022-12-21 18:31 | CT Report ---
PROCEDURE: ANGIO HEAD W/WO INDICATIONS: cva sx CONTRAST: 80mL Omni 300 TECHNIQUE: Precontrast 4.5 mm thick angled axial sections acquired from the foramen magnum to the vertex. Afte r the administration of intravenous contrast, 1 mm thick sections acquired through the [place] of [place] is. Postcontrast 4.5 mm thick sections then re-acquired from the foramen magnum to the vertex. 3-di mensional erikyra-sxmkzxdcn-txdiuvdnld (MIP) and/or volume rendering reformats were acquired of the c entral intracranial vasculature. For radiation dose reduction, the following was used: automated ex posure control, adjustment of mA and/or kV according to patient size. COMPARISON: Correlation is made with the accompanying CT examinations. FINDINGS: Image quality: Motion artifact is noted. Anterior circulation: Intracranial internal carotid arteries are normal in size and flow. The flow within the paired anterior cerebral arteries is normal and symmetric. The flow within the middle cer ebral arteries is normal and symmetric. The anterior communicating artery is seen. No aneurysms are seen. Posterior circulation: Visualized portions of the vertebral arteries demonstrate normal caliber, and join to form a normal appearing basilar artery. Flow within the posterior cerebral arteries is norm al and symmetric. No aneurysms are seen. CSF spaces: Ventricles are normal in size and shape. Basal cisterns are patent. No extra-axial flu id collections. Brain: No midline shift. No intracranial bleeds or masses. Cerda-white matter interface appears int act. Skull and face: Calvarium and facial bones appear intact, without suspicious lesions. Sinuses: Visualized sinuses and mastoids are clear. IMPRESSION: No significant intracranial arterial abnormalities are seen. Reviewed by: Barrie Asher MD on 12/21/2022 5:30 PM AKDT Approved by: Barrie Asher MD on 12/21/2022 5:30 PM AKDT Station ID: [id number]
--- NOTE | 2022-12-21 18:33 | CT Report ---
PROCEDURE: ANGIO NECK W INDICATIONS: cva sx CONTRAST: 80mL Omni 300 TECHNIQUE: After the administration of intravenous contrast, 1.5 mm axial sections acquired from the aortic arch to the [place] of [place]. Coronal 3-D maximum intensity projection (MIP) and/or volume rendering ref ormats were then performed. For radiation dose reduction, the following was used: automated exposur e control, adjustment of mA and/or kV according to patient size. COMPARISON: Correlation is made with the examining CT examinations. FINDINGS: Image quality: Excellent. Carotid system: The great vessels demonstrate a conventional anatomy as they arise from the aortic a rch. The origins of the common carotid arteries appear patent. The common carotid arteries demonstr ate normal calibers and courses. The bifurcation regions demonstrate atherosclerotic irregularity, y et without a hemodynamically significant stenosis seen. The distal internal carotid arteries demonstr ate moderate to prominent tortuosity. Posterior circulation: The origins of the vertebral arteries appear patent. The more superior porti ons of the vertebral arteries demonstrate normal course and caliber. They join to form a normal appe aring basilar artery. Soft tissues: Visualized neck soft tissues demonstrate no suspicious abnormalities. The thyroid is normal in size and there are no incidental findings. An azygos lobe is incidentally noted. Bones: No suspicious bony lesions. Visualized cervical spine appears normally aligned. IMPRESSION: No hemodynamically significant stenosis can be seen within the arteries of the neck. Additional findings: Moderate to prominent tortuosity of the internal carotid arteries Azygos lobe The estimate of stenosis included in the report of the imaging study was calculated using the NASCET method Reviewed by: Barrie Asher MD on 12/21/2022 5:32 PM TEETEE Approved by: Barrie Asher MD on 12/21/2022 5:32 PM TEETEE Station ID: [id number]
[2022-12-21] MEDS ORDERED: diphenhydrAMINE INJ 50 MG/ML VIAL IVP STA (18:48)
[2022-12-21] MEDS ORDERED: LORazepam 1 MG TABLET PO STA (20:11)
[2022-12-21 20:12] VITALS: BP 99/65
== END 2022-12-21 20:37 | disposition home or self-care (01) ==
LOC: ED 17:43
DX: R42 Dizziness and giddiness (principal); R29.898 Other symptoms and signs involving the musculoskeletal system; R25.1 Tremor, unspecified; M62.838 Other muscle spasm; C61 Malignant neoplasm of prostate
CPT/HCPCS: 36415; 70450; 70496; 70498; 80053; 83690; 85025; 85610; 93005; 96374; 96375; 99283; 99284; G0480; J1200; J2060; J8499; Q9967; 80320

== ENCOUNTER 2023-02-13 12:51 | Outpatient (CLI) | payer MEDICARE, MEDICAID ==
[2023-02-15 16:08] LABS: FREE TESTOSTERONE(DIRECT) 3.4 pg/mL (6.6-18.1)
== END 2023-02-13 12:52 | disposition home or self-care (01) ==
LOC: LAB.N 12:51
PROVIDERS: ATTEND Radiology Radiation Oncology
DX: C61 Malignant neoplasm of prostate (principal)
CPT/HCPCS: 36415; 84153; 84402; 84403

== ENCOUNTER 2023-05-02 16:56 | Outpatient (CLI) | payer MEDICARE, MEDICAID ==
[2023-05-02 20:29] LABS: BASOPHILS # (AUTO) 0.1 10^3/uL (0.0-0.1); BASOPHILS % (AUTO) 0.7 %; EOSINOPHILS # (AUTO) 0.2 10^3/uL (0.0-0.7); EOSINOPHILS % (AUTO) 2.5 %; HCT - HEMATOCRIT 43.2 % (42.0-52.0); LYMPHOCYTES # (AUTO) 1.8 10^3/uL (1.5-3.5); LYMPHOCYTES % (AUTO) 26.6 %; MEAN CORPUSCULAR HEMOGLOBIN 28.3 pg (27.0-31.0); MEAN CORPUSCULAR HGB CONC 32.4 g/dL (32.0-36.0); MEAN CORPUSCULAR VOLUME 87.4 fL (80.0-94.0); MEAN PLATELET VOLUME 9.8 fL (7.4-11.4); MONOCYTES # (AUTO) 0.6 10^3/uL (0.0-1.0); MONOCYTES % (AUTO) 9.5 %; NEUTROPHILS # (AUTO) 4.1 10^3/uL (1.5-6.6); NEUTROPHILS % (AUTO) 60.3 %; PLT - PLATELET COUNT 324 10^3/uL (130-450); RED BLOOD COUNT 4.94 10^6/uL (4.70-6.10); RED CELL DISTRIBUTION WIDTH 13.4 % (12.0-15.0); WHITE BLOOD COUNT 6.8 x10^3/uL (4.8-10.8)
[2023-05-02 20:45] LABS: ALBUMIN 4.3 g/dL (3.2-5.5); ALBUMIN/GLOBULIN RATIO 1.5 (1.0-2.2); BILIRUBIN,TOTAL 0.3 mg/dL (0.2-1.0); CALCIUM 9.7 mg/dL (8.5-10.3); CREATININE 1.5 mg/dL (0.6-1.3); POTASSIUM 4.2 mmol/L (3.5-4.5); TOTAL PROTEIN 7.1 g/dL (6.4-8.9)
== END 2023-05-02 16:57 | disposition home or self-care (01) ==
LOC: LAB.N 16:56
PROVIDERS: ATTEND Radiology Radiation Oncology
DX: C61 Malignant neoplasm of prostate (principal)
CPT/HCPCS: 36415; 80053; 84153; 84402; 84403; 85025

== ENCOUNTER 2023-08-09 15:07 | Outpatient (CLI) | payer MEDICARE, MEDICAID ==
--- NOTE | 2023-08-09 15:14 | Sleep Patient Instructions ---
Sleep Center Visit Summary - Patient Visit Information Reason for Visit: Annual Visit - Patient Instructions Additional Instructions: You will continue with CPAP therapy with pressure set at 9-12 cmH2O. A supply prescription will be updated with your DME. We encourage you to continue to try to lose weight. Please follow up with the sleep care office in 1 year. - Clinic Information Contact: [facility] [address] [place] [address] [email or web address] T: [phone]
[2023-08-09 15:22] VITALS: BP 146/96; O2SAT 98
--- NOTE | 2023-08-09 15:22 | SLEEP CARE CONSULTATION ---
Information from patient questionnaire entered by Jose A Mendes. I have reviewed and concur with the information entered by Jose A Mendes. This document represents the service I personally performed and the decisions made by , Monique Hughes ARNP. History of Present Illness Service Date and Time: 08/09/2023 1500 Previous diagnosis: Moderate, Obstructive Sleep Apnea-Hypopnea Syndrome AHI: 23.8 (in 2007) Reason for follow up: annual (LAST SEEN 08/2020) Equipment type: CPAP (RESMED Airsense 10; s/u 06/03/2020) Equipment obtained from: [employer] (getting supplies as needed) Mask style: Nasal (over the nose) Backup mask available: Yes Last cushion change: couple weeks [facility]: [facility] additional information: SHINE THOMAS was diagnosed to have moderate, AHI 23.8, obstructive sleep apnea-hypopnea syndrome and returned today for CPAP therapy annual follow-up. Sleep Study - Results [facility] Data - Data Reviewed with Patient Average duration of nightly device use: 6 HRS 20 MINS Compliance rate %: 70 (08/08/22-08/07/23; 317/365 days used) Current pressure setting (cmH2O): 9-12 Average residual AHI: 1.0 Central apnea: 0 Obstructive apnea: 0.9 Hypopnea: 0.1 Average large leak: 4.4 L/min Subjective Missed days of use due to: reports: other (will fall asleep without the mask) Patient concerns: reports: dry mouth, nose, throat (dry mouth). denies: aerophagia, mask discomfort, air blowing in eyes, mask leak noise, condensation in mask/hose, nasal congestion, epistaxis Observed to snore while using device: No Current pressure setting perceived as: comfortable On therapy, patient: reports: sleeping better, awakening more refreshed, being more awake and alert during the day, more rested overall. denies: drowsiness while driving Initial [place] Sleepiness Scale score: 8 (in 2007) Current [place] Sleepiness Scale score: 13 (08/09/23) Allergies and Home Medications Known drug allergies: Yes (as listed) Drug allergies reviewed: Yes Home medication list reviewed: Yes (no changes) Allergy and home medication list: Allergies acetaminophen [From Percocet] Allergy (Verified 06/07/22 00:41) Respiratory oxycodone HCl * [From Percocet] Allergy (Verified 06/07/22 00:41) Respiratory Review of Systems Review of systems same as previous: Yes (MERSA IN RIGHT LEG STAFF INFECTION IN LEFT FOOT) Physical Exam Vital signs obtained and entered by: JOSE A Ma MA Blood Pressure: 146/96 (LEFT ) Cuff size: wrist Heart Rate: 106 O2 Saturation: 98 Height: 6 ft Weight: 360 lb Body Mass Index: 48.8 BMI Classification: Morbidly Obese Impression and Plan 1. Obstructive Sleep Apnea-Hypopnea Syndrome, moderate, with good treatment compliance and good apnea control. On CPAP therapy, the patient has better sleep quality and is more rested overall. Patient has significant improvement of their sleep apnea and is satisfied with current CPAP therapy. Patient states that her sleeping schedule is kind of all over the place. He is falling asleep oxygen on the couch but says he does not really snore a lot when sleeping sitting up. To prevent falling asleep without CPAP, patient advised to set a bedtime alarm on their phone for use while watching TV on couch or in bed. He tells me he has a history of having TIAs. He has had some and he could not tell me how many and his head scan show multiples. He says he has terminal prostate cancer. He voiced understanding. Patient denies problems with nasal congestion, epistaxis, skin irritation or aerophagia. Patient's apnea severity and rationale for treatment to reduce apnea, improve sleep quality and reduce cardiovascular and cerebrovascular events was reviewed. I also reviewed the benefit of consistent device use of CPAP for hypertension, TIAs, diabetes and gastric reflux. 2. Obesity, unspecified. Currently patients BMI is 48.8. Obesity increases the risk of apnea, CPAP pressure requirements and overall health risks especially cardiovascular and diabetes. Thus patient is advised to lose weight. * Continue auto CPAP pressure at 9-12 cmH2O * Update supply prescription * Notify me if snoring with mask or feeling that the pressure is too much or too little * Attempt to lose weight * Call this office if any problems using CPAP * Return for follow up in 12 months, or sooner if concerns arise Continue with device pressure at (cmH2O): 9-12 Counseling Topics: Spare mask, Weight loss health impact Prescriptions: Device supplies Follow up with Sleep Care in: 1 year Visit Type: In Office Time Spent with Patient (minutes): 20 Provider Statement: I spent 100% of the Face to Face Visit with the patient with greater than 50% spent counseling the patient and coordination of care.
== END 2023-08-09 15:08 | disposition home or self-care (01) ==
LOC: SC 15:07
PROVIDERS: ATTEND Nurse Practitioner Family
DX: G47.33 Obstructive sleep apnea (adult) (pediatric) (principal); E66.01 Morbid (severe) obesity due to excess calories; Z68.42 Body mass index [BMI] 45.0-49.9, adult
CPT/HCPCS: 99213; G0463; 99212

== ENCOUNTER 2023-08-22 13:57 | Outpatient (CLI) | payer MEDICARE, MEDICAID ==
[2023-08-24 20:07] LABS: FREE TESTOSTERONE(DIRECT) 7.5 pg/mL (6.6-18.1)
== END 2023-08-22 13:58 | disposition home or self-care (01) ==
LOC: LAB 13:57
PROVIDERS: ATTEND Radiology Radiation Oncology
DX: C61 Malignant neoplasm of prostate (principal)
CPT/HCPCS: 36415; 84153; 84402; 84403

== ENCOUNTER 2023-11-16 14:18 | Outpatient (CLI) | payer MEDICARE, MEDICAID ==
[2023-11-16 17:53] LABS: BASOPHILS % (AUTO) 0.7 %; EOSINOPHILS # (AUTO) 0.2 10^3/uL (0.0-0.7); EOSINOPHILS % (AUTO) 3.5 %; HCT - HEMATOCRIT 40.2 % (42.0-52.0); HGB - HEMOGLOBIN 12.9 g/dL (14.0-18.0); LYMPHOCYTES # (AUTO) 1.8 10^3/uL (1.5-3.5); LYMPHOCYTES % (AUTO) 33.7 %; MEAN CORPUSCULAR HEMOGLOBIN 28.2 pg (27.0-31.0); MEAN CORPUSCULAR HGB CONC 32.1 g/dL (32.0-36.0); MONOCYTES # (AUTO) 0.6 10^3/uL (0.0-1.0); MONOCYTES % (AUTO) 10.4 %; NEUTROPHILS # (AUTO) 2.8 10^3/uL (1.5-6.6); NEUTROPHILS % (AUTO) 51.5 %; PLT - PLATELET COUNT 285 10^3/uL (130-450); RED BLOOD COUNT 4.57 10^6/uL (4.70-6.10); RED CELL DISTRIBUTION WIDTH 13.9 % (12.0-15.0); WHITE BLOOD COUNT 5.5 x10^3/uL (4.8-10.8)
[2023-11-16 18:20] LABS: ALBUMIN 3.9 g/dL (3.2-5.5); ALBUMIN/GLOBULIN RATIO 1.3 (1.0-2.2); BILIRUBIN,TOTAL 0.5 mg/dL (0.2-1.0); CREATININE 1.3 mg/dL (0.6-1.3); POTASSIUM 4.5 mmol/L (3.5-4.5)
== END 2023-11-16 14:19 | disposition home or self-care (01) ==
LOC: LAB.N 14:18
PROVIDERS: ATTEND Nurse Practitioner Family
DX: C61 Malignant neoplasm of prostate (principal)
CPT/HCPCS: 36415; 80053; 84402; 84403; 85025

== ENCOUNTER 2023-11-27 12:52 | Outpatient (CLI) | payer MEDICARE, MEDICAID ==
[2023-11-27 17:51] LABS: BASOPHILS # (AUTO) 0.1 10^3/uL (0.0-0.1); BASOPHILS % (AUTO) 0.8 %; EOSINOPHILS # (AUTO) 0.1 10^3/uL (0.0-0.7); EOSINOPHILS % (AUTO) 1.3 %; HCT - HEMATOCRIT 43.5 % (42.0-52.0); HGB - HEMOGLOBIN 14.2 g/dL (14.0-18.0); LYMPHOCYTES # (AUTO) 2.3 10^3/uL (1.5-3.5); LYMPHOCYTES % (AUTO) 27.2 %; MEAN CORPUSCULAR HGB CONC 32.6 g/dL (32.0-36.0); MEAN CORPUSCULAR VOLUME 88.8 fL (80.0-94.0); MEAN PLATELET VOLUME 9.6 fL (7.4-11.4); MONOCYTES # (AUTO) 0.8 10^3/uL (0.0-1.0); NEUTROPHILS # (AUTO) 5.2 10^3/uL (1.5-6.6); NEUTROPHILS % (AUTO) 61.3 %; PLT - PLATELET COUNT 336 10^3/uL (130-450); RED CELL DISTRIBUTION WIDTH 14.1 % (12.0-15.0); WHITE BLOOD COUNT 8.5 x10^3/uL (4.8-10.8)
[2023-11-27 18:06] LABS: ALBUMIN 4.3 g/dL (3.2-5.5); ALBUMIN/GLOBULIN RATIO 1.3 (1.0-2.2); BILIRUBIN,TOTAL 0.5 mg/dL (0.2-1.0); CALCIUM 10.3 mg/dL (8.5-10.3); CREATININE 1.6 mg/dL (0.6-1.3); POTASSIUM 4.6 mmol/L (3.5-4.5); TOTAL PROTEIN 7.5 g/dL (6.4-8.9)
== END 2023-11-27 12:53 | disposition home or self-care (01) ==
LOC: LAB.N 12:52
PROVIDERS: ATTEND Nurse Practitioner Family
DX: C61 Malignant neoplasm of prostate (principal)
CPT/HCPCS: 36415; 80053; 84153; 84402; 84403; 85025